=== PATIENT | female | born 1935 | race Two or more races ===

== ENCOUNTER 2018-02-11 13:44 | Inpatient (IN) | payer MEDICARE, OTHER ==
--- NOTE | 2018-02-11 15:06 | ED Physician Chart ---
ED Chief Complaint/HPI - Patient Information Date Seen:: 02/11/18 Time Seen:: 14:05 Chief Complaint:: change in mental status s/p fall History of Present Illness:: change in mental status prior head trauma according to patient (one year ago). patient did not allow me to examine her or undress her (even after sedation with ativan from the facility) before over 4 hours plus passed. patient tried to take a swing at me and didn't want to be disturbed. she also took a swing at Antione. she had pinpoint pupils and was breathing comfortably. Allergies:: Allergies Allergy/AdvReac Type Severity Reaction Status Date / Time No Known Allergies Allergy Verified 02/11/18 14:02 Vitals:: Vital Signs - 8 hr 02/11/18 14:03 Temp 99.5 F HR 71 RR 18 BP 154/52 O2 Sat % 98 Historian:: Family Member, Medical Records Review:: Nurse's Note Reviewed, Transfer documents Reviewed ED Review of Systems - Review of Systems General/Constitutional: No fever, No chills, No weakness, Other (fall; change in mental status.) Skin: Bruising Head: No headache, No light-headedness Eyes: No loss of vision, No pain, No diplopia ENT: No earache, No nasal drainage, No sore throat, No tinnitus Neck: No neck pain, No swelling, No thyromegaly, No stiffness, No mass noted Cardio Vascular: No chest pain, No palpitations, No PND, No orthopnea, No edema Pulmonary: No SOB, No cough, No sputum, No wheezing GI: No nausea, No vomiting, No diarrhea, No pain, No melena, No hematochezia, No constipation, No hematemesis G/U: No dysuria, No frequency, No hematuria Musculoskeletal: Bone or joint pain Endocrine: No polyuria, No polydipsia Psychiatric: Other (change in mental status; agitation) Hematopoietic: No bruising, No lymphadenopathy Allergic/Immuno: No urticaria, No angioedema Neurological: No syncope, No focal symptoms, No weakness, No paresthesia, No headache, No seizure, No dizziness, No confusion, No vertigo ED Past Medical History - Past Medical History Obtainable: No Past Medical History: CAD, Thyroid disorder, Other (aortic valve replacement; pacemaker; CAD) Surgical History: CABG, other (aortic valve replacement; pacemaker; 3 vessel CABG in 2009) Family Medical History - Family Member Mother History Unknown: Yes ED Physical Exam - Physical Examination Other Gen/Cons comments:: somnolent upon presentation with mouth open. Head: Atraumatic Other Head comments:: no bruising or swelling. Eyes: Lids, conjuctiva normal, EOMI Other Eyes comments:: pinpoint pupils Other Skin comments:: six inch long bruise that is widest at 2 inches (after patient finally allowed me to have her fully undressed). ENMT: External ears, nose nl, Nasal exam nl Other ENMT comments:: upper dentures removed by patient (edentulous on top) Neck: Nontender, Full ROM w/o pain, No JVD, No nuchal rigidity, No mass, No stridor Respiratory: Nl effort/Exclusion Other Respiratory comments:: faint rales at bases only. Cardio Vascular: RRR, No murmur, gallop, rubs, NL S1 S2 GI: No tenderness/rebounding/guarding, No organomegaly, No hernia, Normal BS's, Nondistended, No mass/bruits, No McBurney tenderness : No CVA tenderness Extremities: No tenderness or effusion, Full ROM, normal strength in all extremities, No edema, Normal digits & nails Other Neuro/Psych comments:: agitated. patient tried to hit me and to hit Antione. ED Assessment - Assessment General Assessment: EKG from 02/11/2018 at 2:18:19 p.m.: normal sinus rhythm, left bundle branch block. Q waves in III and AVF. Flipped t waves in AVL. Nonspecific ST T wave changes. Assessment/Comments:: 02/11/2018 CT of head: no hemorrhage; atrophy & diffuse white matter disease; atherosclerotic vascular disease; prior midline chronic appearing skull fracture extending to the midline frontal sinuses. Correlate with clinical history. Left shoulder: osteopenia (no fracture). CXR: cardiomegaly with CHF. patient did not allow me to examine her or undress her (even after sedation with ativan from the facility) before over 4 hours plus passed. patient tried to take a swing at me and didn't want to be disturbed. she also took a swing at Antione. she had pinpoint pupils and was breathing comfortably. when patient finally allowed me to examine her, I noticed a six inch long by 2 inch wide area of bruising behind her R scapula. (at 17:10) report had already been given to Dr. Correa. I then ordered a R shoulder and R scapular xray. On 2 of the 3 views of the R scapular xray, I noticed an area of bone cortex that was elevated and suspicious for a scapular tip fracture. Therefore, I ordered a CT scan and apprised Dr. Correa of this as well. the CT scan results are pending as of 7:17 p.m. I will give sign out to Dr. Feng to check the CT scan results and to call Dr. Correa if it is positive for a fracture. ED Septic Shock - . Is Septic Shock (SBP<90, OR Lactate>4 mmol\L) present?: No - <6hrs of presentation: Vital Signs: Vital Signs - 8 hr 02/11/18 14:03 Temp 99.5 F HR 71 RR 18 BP 154/52 O2 Sat % 98 ED Reassessment (Disposition) - Reassessment Reassessment Condition:: Improved - Diagnosis Diagnosis:: Fall Change in mental status Urinary tract infection Old frontal skull fracture with extension into sinuses Pulmonary edema without pretibial edema. Anemia Chronic renal insufficiency. Right parascapular bruising with abnormality seen on xrays. CT scan pending. Will give sign out to Dr. Feng to check this result and to call Dr. Correa if it is positive. - Patient Disposition Discharge/Transfer:: Acute Care w/in this hosp Accepting Physician:: Dr. Correa Time Called:: 16:38 Time Responded:: 16:38 Admitted to:: Telemetry Condition at Disposition:: Stable, Improved
[2018-02-11 15:21] LABS: % BASOPHILS 1.4 % (0.0-2.0); % EOSINOPHILS 2.9 % (0.0-5.0); % LYMPHOCYTES 17.2 % (20.0-50.0); % MONOCYTES 6.7 % (2.0-10.0); % NEUTROPHILS 71.8 % (40.0-80.0); BASOPHILE ABSOLUTE 0.2 Th/cumm (0-0.2); EOSINOPHILE ABSOLUTE 0.3 Th/cmm (0.1-0.4); HEMATOCRIT 34.4 % (41.0-60); HEMOGLOBIN 11.6 gm/dL (12-16); LYMPHOCYTE ABSOLUTE 1.9 Th/cmm (1.5-3.0); MEAN CORPUSCULAR HGB CONC 33.7 pg (28.0-36.0); MEAN PLATELET VOLUME 8.3 fl; MONOCYTE ABSOLUTE 0.7 Th/cmm (0.3-1.0); NEUTROPHILE ABSOLUTE 7.8 Th/cmm (1.8-8.0); PLATELET COUNT 218 Th/cmm (150-400); RED BLOOD COUNT 4.14 Mil/cmm (3.80-5.20); RED CELL DISTRIBUTION WIDTH 16.7 % (11.5-20.0); WHITE BLOOD COUNT 10.9 Th/cmm (4.8-10.8)
[2018-02-11 15:33] LABS: INR 1.04 (0.5-1.4); PROTHROMBIN TIME (TEST) 10.8 SECONDS (9.5-11.5)
[2018-02-11 15:35] LABS: ALB/GLOB RATIO 1.2 (1.0-1.8); ALBUMIN 3.9 gm/dL (3.7-5.3); ALKALINE PHOSPHATASE 74 U/L (34-104); BILIRUBIN,TOTAL 0.5 mg/dL (0.3-1.0); BUN - UREA NITROGEN 42 mg/dL (7-25); CALCIUM SERUM 10.1 mg/dL (8.6-10.3); CARBON DIOXIDE 22.9 mEq/L (21.0-31.0); CHLORIDE 107 mEq/L (98-107); CREATININE - SERUM 1.3 mg/dL (0.6-1.2); GLUCOSE 131 mg/dL (70-105); MAGNESIUM 2.3 mg/dL (1.9-2.7); PHOSPHOROUS 3.5 mg/dL (2.5-5.0); POTASSIUM SERUM 3.9 mEq/L (3.5-5.1); SGOT 18 U/L (13-39); SGPT/ALT 10 U/L (7-52); SODIUM SERUM 138 mEq/L (136-145); TOTAL PROTEIN,SERUM 7.2 gm/dL (6.0-8.3)
[2018-02-11 15:53] LABS: URINE BILIRUBIN NEGATIVE (NEGATIVE); URINE BLOOD MODERATE (NEGATIVE); URINE GLUCOSE (UA) NEGATIVE (NEGATIVE); URINE KETONE NEGATIVE (NEGATIVE); URINE LEUKOCYTE ESTERASE SMALL (NEGATIVE); URINE MICROSCOPIC INDICATED? YES; URINE NITRATE NEGATIVE (NEGATIVE); URINE PROTEIN NEGATIVE (NEGATIVE); URINE SOURCE CATH
[2018-02-11 15:55] LABS: URINE CLARITY HAZY (CLEAR); URINE COLOR YELLOW
[2018-02-11 16:00] LABS: URINE BACTERIA 3+ /hpf (NONE SEEN); URINE EPITHELIAL CELLS MODERATE /lpf (FEW); URINE FINE GRANULAR CAST 0-2 /lpf (NONE SEEN)
[2018-02-11 16:10] LABS: AMPHETAMINE URINE NEGATIVE (NEGATIVE); BARBITURATES URINE NEGATIVE (NEGATIVE); BENZODIAZEPINES QUAL URINE POSITIVE (NEGATIVE); CANNABINOID THC NEGATIVE (NEGATIVE); COCAINE METABOLITE QUAL URINE NEGATIVE (NEGATIVE); METHADONE URINE NEGATIVE (NEGATIVE); METHAMPHETAMINES QUAL URINE NEGATIVE (NEGATIVE); OPIATES (MORPHINE) QUAL. URINE NEGATIVE (NEGATIVE); PHENCYCLIDINE (PCP) URINE NEGATIVE (NEGATIVE); TRICYCLICS (TCA) QUAL. URINE NEGATIVE (NEGATIVE)
[2018-02-11] MEDS ORDERED: Levofloxacin 500mg/100mL 500 MG/100 ML BAG IV ONE ×2 (17:16→17:30)
[2018-02-11] MEDS ORDERED: Levofloxacin 500mg/100mL 500 MG/100 ML BAG IV SCH (17:30)
[2018-02-11 21:57] VITALS: BP 153/72
[2018-02-12 07:16] LABS: % BASOPHILS 0.9 % (0.0-2.0); % EOSINOPHILS 3.7 % (0.0-5.0); % LYMPHOCYTES 16.9 % (20.0-50.0); % MONOCYTES 9.4 % (2.0-10.0); % NEUTROPHILS 69.1 % (40.0-80.0); BASOPHILE ABSOLUTE 0.1 Th/cumm (0-0.2); EOSINOPHILE ABSOLUTE 0.3 Th/cmm (0.1-0.4); HEMOGLOBIN 11.4 gm/dL (12-16); LYMPHOCYTE ABSOLUTE 1.6 Th/cmm (1.5-3.0); MEAN CELL VOLUME 83.8 fl (81-100); MEAN CORPUSCULAR HEMOGLOBIN 28.1 pg (27.0-31.0); MEAN CORPUSCULAR HGB CONC 33.6 pg (28.0-36.0); MEAN PLATELET VOLUME 9.1 fl; MONOCYTE ABSOLUTE 0.9 Th/cmm (0.3-1.0); NEUTROPHILE ABSOLUTE 6.3 Th/cmm (1.8-8.0); PLATELET COUNT 200 Th/cmm (150-400); RED BLOOD COUNT 4.06 Mil/cmm (3.80-5.20); RED CELL DISTRIBUTION WIDTH 16.8 % (11.5-20.0); WHITE BLOOD COUNT 9.2 Th/cmm (4.8-10.8)
--- NOTE | 2018-02-12 07:19 | Diagnostic Imaging Report ---
Portable chest x-ray Time: 1436 History: Sepsis Allowing for portable technique the heart size is normal. No focal pulmonary parenchymal processes. No hilar or mediastinal abnormalities. Multiple metallic sutures are noted status post transsternal thoracotomy. The aortic arch calcified. Impression: No acute abnormalities.
[2018-02-12 07:30] LABS: ALB/GLOB RATIO 1.2 (1.0-1.8); ALBUMIN 3.6 gm/dL (3.7-5.3); ALKALINE PHOSPHATASE 66 U/L (34-104); ANION GAP 11.5 (7.0-16.0); BILIRUBIN,TOTAL 0.8 mg/dL (0.3-1.0); BUN - UREA NITROGEN 38 mg/dL (7-25); CALCIUM SERUM 9.8 mg/dL (8.6-10.3); CARBON DIOXIDE 24.3 mEq/L (21.0-31.0); CHLORIDE 106 mEq/L (98-107); CREATININE - SERUM 1.2 mg/dL (0.6-1.2); CREATININE KINASE 40 U/L (30-223); GLUCOSE 84 mg/dL (70-105); POTASSIUM SERUM 3.8 mEq/L (3.5-5.1); SGOT 18 U/L (13-39); SGPT/ALT 10 U/L (7-52); SODIUM SERUM 138 mEq/L (136-145); TOTAL PROTEIN,SERUM 6.6 gm/dL (6.0-8.3)
--- NOTE | 2018-02-12 07:32 | Diagnostic Imaging Report ---
Exam: CT examination of the right shoulder. HISTORY: Pain. Total DLP equals 715 CTDI equals 16.2 Findings: Multiple contiguous thin section of the right shoulder joint were obtained without the administration of contrast material. No prior studies available comparison. The study demonstrates no evidence of fracture dislocation. Suture anchors are noted humeral head most likely postoperative changes. Narrowing of joint space suggestive of degenerative osteophyte radius. The visualized muscle groups are intact. No soft tissue swelling is noted. The visualized scapula is normal. Incidentally noted post operative changes status post transsternal thoracotomy and left-sided pacemaker. IMPRESSION: Degenerative changes left shoulder joint.
--- NOTE | 2018-02-12 07:33 | Diagnostic Imaging Report ---
Exam: Right scapular HISTORY: Pain. Findings: Multiple views of right scapula reviewed the study demonstrates no evidence for acute fracture dislocation. The visualized right shoulder joint and acromioclavicular joints are intact. Metallic anchors overlying right humeral head appreciated. This represents postoperative changes status post ligamentous repair. IMPRESSION: Essentially unremarkable examination right scapula.
--- NOTE | 2018-02-12 07:34 | Diagnostic Imaging Report ---
Exam: Right shoulder joint. HISTORY: Pain Findings: Multiple views of right shoulder joint reviewed. The study demonstrates no evidence of fracture dislocation. The acromioclavicular joint is intact. Metallic anchors overlying the right humeral head most likely represent postoperative changes status post ligamentous repair. IMPRESSION: Essentially unremarkable examination right shoulder joint, mild degenerative narrowing of joint space.
--- NOTE | 2018-02-12 07:46 | Diagnostic Imaging Report ---
CT scan of the brain without intravenous contrast HISTORY: Effusion Total DLP equals 791 CTDI equals 40.9 Axial sections were obtained from the base of the skull to the vertex. There is prominence/enlargement of the ventricular system size. Associated enlargement of cerebral sulci and subarachnoid cisterns. Findings are consistent with changes of generalized cerebral atrophy. No acute parenchymal abnormalities. No acute cerebral hemorrhage. Hypodensity is seen within the supratentorial white matter regions without mass effect. The findings may be associated with chronic small vessel ischemic disease. No extra-axial masses or abnormal fluid collections. 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 Report The chronic appearing midline IMPRESSION: 1. No acute abnormalities 2. Cerebral atrophy 3. Supratentorial white matter changes that may reflect chronic small vessel ischemic disease
--- NOTE | 2018-02-12 07:47 | Diagnostic Imaging Report ---
Exam: Left shoulder joint HISTORY: Status post fall. Findings: Portable examination of the left shoulder joint at 1430 reviewed, no prior studies available for comparison. The study demonstrates no evidence for acute fracture or dislocation. The acromioclavicular joint is intact. Mild degenerative narrowing of the joint spaces noted. IMPRESSION: Essentially unremarkable examination of left shoulder joint.
[2018-02-12 08:12] LABS: DDIMER QUANT 2920 ng/mL (100-400)
[2018-02-12] MEDS ORDERED: Albuterol/Ipratropium Neb 3 ML AERS HHN PRN (08:41)
[2018-02-12] MEDS ORDERED: Albuterol/Ipratropium Neb 3 ML AERS HHN ONE (08:55)
[2018-02-12] MEDS ORDERED: Non-Formulary Item 1 EA (Levothyroxine Sodium [Levothyroxine Sodium] 150 MCG) PO SCH (09:00)
[2018-02-12] MEDS: Vitamin D3 2,000 IU SGL PO SCH (10:00)
[2018-02-12] MEDS: Multivitamin Tab PO SCH (10:00)
[2018-02-12] MEDS ORDERED: VTE Chemical Prophylaxis Screen/Admission MC PRN (11:56)
[2018-02-12] MEDS ORDERED: Probiotic Screen MC PRN (12:32)
--- NOTE | 2018-02-12 12:37 | Consultation ---
Consult Note - Consult Note Service Date: 02/12/18 Referring Physician: Nancy Correa Consult Note: PHYSICIAN Consultation Note: Date of Admission: 02/11/18 Purpose of Consultation: UTI. Chief Complaint: Patient LORENA LIANG was admitted to [facility] Telemetry with CHF, UTI & SINUS FX. History of Present Illness: 82-year-old female history of coronary artery disease, thyroid disorder, that developed placement, pacemaker placement, CABG, had a fall and nursing facility and developed change in mental status and right shoulder pain. On initial evaluation, her temperature was 99.5F and WBC count was 10,900. Urinalysis showed pyuria and bacteriuria. Levaquin was started. ID consult was called for antibiotic management. Past Medical History: coronary artery disease, thyroid disorder, that developed placement, pacemaker placement, CABG. Allergies Allergy/AdvReac Type Severity Reaction Status Date / Time No Known Allergies Allergy Verified 02/11/18 14:02 Vital Signs Temp 97.4 F 02/12/18 11:57 Pulse 72 02/12/18 11:57 Resp 18 02/12/18 11:57 BP 131/52 02/12/18 11:57 Pulse Ox 94 02/12/18 11:57 Intake & Output 02/11/18 02/12/18 02/12/18 18:59 06:59 18:59 Intake Total 200 240 Balance 200 240 Weight (lbs) 80.739 kg 71.305 kg 71.305 kg Intake: Intake, IV Amount 200 Levofloxacin 500mg/100mL 100 500 mg In 100 ml @ 100 mls/hr IV ONCE ONE Rx#: [id number] Levofloxacin 500mg/100mL 100 500 mg In 100 ml @ 100 mls/hr IV Q24HR [facility] Rx#: [id number] Oral 240 Other: # Voids 2 2 # Bowel Movements 0 Weight Source Estimated Bedscale Bedscale Laboratory Results - last 24 hr 02/11/18 02/11/18 02/11/18 14:14 15:11 15:11 WBC 10.9 H RBC 4.14 Hgb 11.6 L Hct 34.4 L MCV 83.0 MCH 28.0 MCHC Differential 33.7 RDW 16.7 Plt Count 218 MPV 8.3 Neutrophils % 71.8 Lymphocytes % 17.2 L Monocytes % 6.7 Eosinophils % 2.9 Basophils % 1.4 PT INR PTT (Actin FS) D-Dimer Sodium 138 Potassium 3.9 Chloride 107 Carbon Dioxide 22.9 Anion Gap 12.0 BUN 42 H Creatinine 1.3 H Est GFR ( Amer) TNP Est GFR (Non-Af Amer) TNP BUN/Creatinine Ratio 32.3 Glucose 131 H POC Glucose Whole Bld Lactic Acid Calcium 10.1 Phosphorus 3.5 Magnesium 2.3 Total Bilirubin 0.5 AST 18 ALT 10 Alkaline Phosphatase 74 Creatine Kinase Troponin I < 0.01 L B-Natriuretic Peptide Total Protein 7.2 Albumin 3.9 Globulin 3.3 Albumin/Globulin Ratio 1.2 TSH Urine Source Urine Color Urine Clarity Urine pH Ur Specific [place] Urine Protein Urine Glucose (UA) Urine Ketones Urine Blood Urine Nitrate Urine Bilirubin Urine Urobilinogen Ur Leukocyte Esterase Urine RBC Urine WBC Ur Epithelial Cells Urine Bacteria Fine Granular Casts Urine Opiates Screen Urine Methadone Screen Ur Barbiturates Screen Ur Tricyclics Screen Ur Phencyclidine Scrn Amphetamines Screen U Methamphetamines Scrn U Benzodiazepines Scrn U Cocaine Metab Screen U Cannabinoids Screen 02/11/18 02/11/18 02/11/18 15:11 15:11 15:11 WBC RBC Hgb Hct MCV MCH MCHC Differential RDW Plt Count MPV Neutrophils % Lymphocytes % Monocytes % Eosinophils % Basophils % PT 10.8 INR 1.04 PTT (Actin FS) 24.2 L D-Dimer Sodium Potassium Chloride Carbon Dioxide Anion Gap BUN Creatinine Est GFR ( Amer) Est GFR (Non-Af Amer) BUN/Creatinine Ratio Glucose POC Glucose Whole Bld Lactic Acid Calcium Phosphorus Magnesium Total Bilirubin AST ALT Alkaline Phosphatase Creatine Kinase Troponin I B-Natriuretic Peptide 1340.0 H Total Protein Albumin Globulin Albumin/Globulin Ratio TSH 1.01 Urine Source Urine Color Urine Clarity Urine pH Ur Specific [place] Urine Protein Urine Glucose (UA) Urine Ketones Urine Blood Urine Nitrate Urine Bilirubin Urine Urobilinogen Ur Leukocyte Esterase Urine RBC Urine WBC Ur Epithelial Cells Urine Bacteria Fine Granular Casts Urine Opiates Screen Urine Methadone Screen Ur Barbiturates Screen Ur Tricyclics Screen Ur Phencyclidine Scrn Amphetamines Screen U Methamphetamines Scrn U Benzodiazepines Scrn U Cocaine Metab Screen U Cannabinoids Screen 02/11/18 02/11/18 02/11/18 15:21 15:43 15:43 WBC RBC Hgb Hct MCV MCH MCHC Differential RDW Plt Count MPV Neutrophils % Lymphocytes % Monocytes % Eosinophils % Basophils % PT INR PTT (Actin FS) D-Dimer Sodium Potassium Chloride Carbon Dioxide Anion Gap BUN Creatinine Est GFR ( Amer) Est GFR (Non-Af Amer) BUN/Creatinine Ratio Glucose POC Glucose Whole Bld Lactic Acid 1.16 Calcium Phosphorus Magnesium Total Bilirubin AST ALT Alkaline Phosphatase Creatine Kinase Troponin I B-Natriuretic Peptide Total Protein Albumin Globulin Albumin/Globulin Ratio TSH Urine Source CATH Urine Color YELLOW Urine Clarity HAZY Urine pH 6.0 Ur Specific [place] 1.015 Urine Protein NEGATIVE Urine Glucose (UA) NEGATIVE Urine Ketones NEGATIVE Urine Blood MODERATE H Urine Nitrate NEGATIVE Urine Bilirubin NEGATIVE Urine Urobilinogen 1.0 Ur Leukocyte Esterase SMALL H Urine RBC 2-5 Urine WBC 10-25 H Ur Epithelial Cells MODERATE Urine Bacteria 3+ H Fine Granular Casts 0-2 H Urine Opiates Screen NEGATIVE Urine Methadone Screen NEGATIVE Ur Barbiturates Screen NEGATIVE Ur Tricyclics Screen NEGATIVE Ur Phencyclidine Scrn NEGATIVE Amphetamines Screen NEGATIVE U Methamphetamines Scrn NEGATIVE U Benzodiazepines Scrn POSITIVE H U Cocaine Metab Screen NEGATIVE U Cannabinoids Screen NEGATIVE 02/11/18 02/12/18 02/12/18 21:11 06:00 06:00 WBC 9.2 RBC 4.06 Hgb 11.4 L Hct 34.0 L MCV 83.8 MCH 28.1 MCHC Differential 33.6 RDW 16.8 Plt Count 200 MPV 9.1 Neutrophils % 69.1 Lymphocytes % 16.9 L Monocytes % 9.4 Eosinophils % 3.7 Basophils % 0.9 PT INR PTT (Actin FS) 25.9 L D-Dimer Sodium Potassium Chloride Carbon Dioxide Anion Gap BUN Creatinine Est GFR ( Amer) Est GFR (Non-Af Amer) BUN/Creatinine Ratio Glucose POC Glucose 95 Whole Bld Lactic Acid Calcium Phosphorus Magnesium Total Bilirubin AST ALT Alkaline Phosphatase Creatine Kinase Troponin I B-Natriuretic Peptide Total Protein Albumin Globulin Albumin/Globulin Ratio TSH Urine Source Urine Color Urine Clarity Urine pH Ur Specific [place] Urine Protein Urine Glucose (UA) Urine Ketones Urine Blood Urine Nitrate Urine Bilirubin Urine Urobilinogen Ur Leukocyte Esterase Urine RBC Urine WBC Ur Epithelial Cells Urine Bacteria Fine Granular Casts Urine Opiates Screen Urine Methadone Screen Ur Barbiturates Screen Ur Tricyclics Screen Ur Phencyclidine Scrn Amphetamines Screen U Methamphetamines Scrn U Benzodiazepines Scrn U Cocaine Metab Screen U Cannabinoids Screen 02/12/18 06:00 WBC RBC Hgb Hct MCV MCH MCHC Differential RDW Plt Count MPV Neutrophils % Lymphocytes % Monocytes % Eosinophils % Basophils % PT INR PTT (Actin FS) D-Dimer 2920 H Sodium 138 Potassium 3.8 Chloride 106 Carbon Dioxide 24.3 Anion Gap 11.5 BUN 38 H Creatinine 1.2 Est GFR ( Amer) TNP Est GFR (Non-Af Amer) TNP BUN/Creatinine Ratio 31.7 Glucose 84 POC Glucose Whole Bld Lactic Acid Calcium 9.8 Phosphorus Magnesium Total Bilirubin 0.8 AST 18 ALT 10 Alkaline Phosphatase 66 Creatine Kinase 40 Troponin I B-Natriuretic Peptide Total Protein 6.6 Albumin 3.6 L Globulin 3.0 Albumin/Globulin Ratio 1.2 TSH Urine Source Urine Color Urine Clarity Urine pH Ur Specific [place] Urine Protein Urine Glucose (UA) Urine Ketones Urine Blood Urine Nitrate Urine Bilirubin Urine Urobilinogen Ur Leukocyte Esterase Urine RBC Urine WBC Ur Epithelial Cells Urine Bacteria Fine Granular Casts Urine Opiates Screen Urine Methadone Screen Ur Barbiturates Screen Ur Tricyclics Screen Ur Phencyclidine Scrn Amphetamines Screen U Methamphetamines Scrn U Benzodiazepines Scrn U Cocaine Metab Screen U Cannabinoids Screen Home Medication Medication Instructions Recorded Type Acetaminophen [Tylenol 650mg Supp] 650 mg RC Q4HR PRN 02/11/18 History Alprazolam [Xanax] 0.5 mg PO BID 02/11/18 History Carvedilol [Coreg] 6.25 mg PO BID 02/11/18 History Clopidogrel Bisulfate [Plavix] 75 mg PO DAILY 02/11/18 History Furosemide [Lasix] 40 mg PO DAILY 02/11/18 History Ibuprofen 400 mg PO Q4H PRN 02/11/18 History Ipratropium/Albuterol Sulfate 3 ml IH Q4H PRN 02/11/18 History [Iprat-Albut 0.5-3(2.5) mg/3 ml] Levothyroxine Sodium 150 mcg PO DAILY 02/11/18 History Megestrol Acetate 5 ml PO DAILY 02/11/18 History Multivitamin [Multivitamins] 1 cap PO DAILY 02/11/18 History Nitrofurantoin Macrocrystal 100 mg PO BID 02/11/18 History [Macrodantin] Nitroglycerin 0.3 mg SL Q5MIN PRN 02/11/18 History QUEtiapine Fumarate [SEROquel] 50 mg PO BID 02/11/18 History Vitamin D 2,000 iu PO DAILY 02/11/18 History metroNIDAZOLE [Flagyl] 500 mg PO TID 02/11/18 History Current Medications Generic Name Dose Route Start Last Admin Trade Name Freq PRN Reason Stop Dose Admin Acetaminophen 650 mg 02/12/18 08:41 Tylenol 650mg Supp RC 04/13/18 08:40 Q4H PRN FEVER >100, OR MILD PAIN Albuterol/Ipratropium 3 ml 02/12/18 08:41 Duoneb Neb HHN 04/13/18 08:40 Q4HRT PRN Shortness of Breath Alprazolam 0.5 mg 02/12/18 09:00 02/12/18 10:00 Xanax PO 04/13/18 08:59 Not Given BID [facility] Protocol Carvedilol 6.25 mg 02/12/18 10:00 02/12/18 10:00 Coreg PO 04/13/18 09:59 Not Given BID [facility] Clopidogrel Bisulfate 75 mg 02/12/18 10:00 02/12/18 10:00 Plavix PO 04/13/18 09:59 Not Given DAILY [facility] Furosemide 40 mg 02/12/18 10:00 02/12/18 10:00 Lasix PO 04/13/18 09:59 Not Given DAILY [facility] Furosemide 40 mg 02/12/18 17:00 Lasix IVP 04/13/18 16:59 BID [facility] Heparin Sodium (Porcine) 5,000 units 02/12/18 21:00 Heparin SUBQ 04/13/18 20:59 Q12HR [facility] Levofloxacin 250 mg in 50 mls @ 50 mls/hr 02/12/18 18:00 Levaquin Pb IV 04/13/18 17:59 Q24H [facility] Ibuprofen 400 mg 02/12/18 08:41 Motrin PO 04/13/18 08:40 Q4H PRN PAIN Lactobacillus Rhamnosus 1 each 02/12/18 14:00 Culturelle 15b PO 04/13/18 13:59 DAILY [facility] Levothyroxine Sodium 0.1 mg/ 0.15 mg 02/12/18 10:00 02/12/18 10:00 Levothyroxine Sodium 0.05 mg PO 04/13/18 09:59 Not Given QDAC [facility] Lorazepam 1 mg 02/12/18 09:47 02/12/18 10:00 Ativan IVP 04/13/18 09:46 1 mg Q4H PRN Administration Agitation Protocol Megestrol Acetate 200 mg 02/12/18 10:00 02/12/18 10:00 Megace PO 04/13/18 09:59 Not Given DAILY [facility] Miscellaneous 1 02/12/18 11:56 Vte Chemical Prophylaxis Screen/ Admission 04/13/18 11:55 PRN PRN PROTOCOL Miscellaneous 1 02/12/18 12:32 Probiotic Screen 04/13/18 12:31 PRN PRN PROTOCOL Multivitamins/Vitamin C 1 tab 02/12/18 10:00 02/12/18 10:00 Theragran PO 04/13/18 09:59 Not Given DAILY [facility] Nitroglycerin 0.4 mg 02/12/18 08:41 Nitrostat SL Q5MIN PRN Chest Pain Quetiapine Fumarate 50 mg 02/12/18 09:00 Seroquel PO 04/13/18 08:59 BID [facility] Protocol Vitamin D 2,000 iu 02/12/18 10:00 02/12/18 10:00 Vitamin D3 PO 04/13/18 09:59 Not Given DAILY [facility] Review of Systems: A 12 point ROS was reviewed with the pertinent positive and negatives noted in the HPI. Social History Smoking Status Never smoker Drug Use No Alcohol Use No Family Medical History Noncontributory. Physical Exam: General: Comfortable sitting up in a chair. Denies any pain. Well-nourished Well-developed. HEENT: Head: Normocephalic, atraumatic. Oral cavity: Moist, pink tongue. Eyes : Pupil PERRLA. EOMI. No pallor neck tests. Neck: Supple, no JVD. No use of X his neck muscles. Cardio: S1 and S2 within normal limits regular rhythm. SYSTOLIC murmur present. Respiratory: Vesicular breath sound. No crackles no wheezing Abdominal: Soft, nontender nondistended bowel sounds present Genital/Urinary: Extremities: No cyanosis no clubbing or edema. Neurological: Alert, awake, communicates well. Speech is clear. Assessment: 1. UTI. 2. History of fall. 3. Dementia. 4. coronary artery disease.CABG 5. Thyroid disorder. 6. pacemaker placement. 7. CABG Plan: Change Levaquin to Rocephin. Thank you, Dr. Correa for involving me in taking care of this patient Signed, Oscar Colbert M.D.
--- NOTE | 2018-02-12 14:12 | History & Physical ---
ADMIT DATE: 02/11/2018 HISTORY OF PRESENT ILLNESS: The patient is well known to me from following her at hospice care. Apparently, the patient has been confused, disoriented, and acting out. The patient also had a history of fall. The patient was referred to the Emergency Room where they found that the patient has some facial injury as well as scapular injury and the patient was confused. The patient's workup showed UTI and sepsis. The patient was admitted. The patient had no fever, no chills. Has bruises, no ear ache, no neck pain, no vomiting, no complaints of bony pains. No syncope, history of syncope, history of coronary artery disease, history of thyroid disorder, history of aortic valve replacement in the past with status post pacemaker, coronary artery disease, coronary artery bypass surgery, pacemaker in 2011. PHYSICAL EXAMINATION: GENERAL: The patient is alert, patient is somewhat lethargic and confused. HEAD: Normal. ENT: Normal. NECK: Supple, nontender. LUNGS: Bilaterally clear. CARDIOVASCULAR SYSTEM: S1, S2 heard. ABDOMEN: Soft. CENTRAL NERVOUS SYSTEM: The patient is confused and the patient is a little agitated. LABORATORY DATA: EKG showed left bundle branch block. Left shoulder showed osteopenia, no fracture. Chest x-ray showed cardiomegaly, no CHF. She had a CAT scan of the head showed possible old fracture. DIAGNOSES: Altered mental status, encephalopathy, history of fall, facial injury, old bifrontal scalp fracture, possible pulmonary edema, renal insufficiency, anemia, right parascapular bruising. PLAN: The patient is being admitted. The patient is given IV antibiotics and we will give the medication to calm her down as well as we will have Dr. Medina see the patient. I will also have Dr. Eulogio Colbert see the patient and I will follow the patient. JOB# [id number]
[2018-02-12] MEDS: Lactobacillus Rhamnosus GG 15 Billion CFU CAP.SPRINK PO SCH (15:07)
--- NOTE | 2018-02-12 15:53 | General Progress Note ---
Subjective - Review of Systems Events since last encounter: in no distress Objective - Results Result Diagrams: 02/12/18 06:00 02/12/18 06:00 Recent Labs: Laboratory Last Values WBC 9.2 Th/cmm (4.8-10.8) 02/12/18 06:00 RBC 4.06 Mil/cmm (3.80-5.20) 02/12/18 06:00 Hgb 11.4 gm/dL (12-16) L 02/12/18 06:00 Hct 34.0 % (41.0-60) L 02/12/18 06:00 MCV 83.8 fl (81-100) 02/12/18 06:00 MCH 28.1 pg (27.0-31.0) 02/12/18 06:00 MCHC Differential 33.6 pg (28.0-36.0) 02/12/18 06:00 RDW 16.8 % (11.5-20.0) 02/12/18 06:00 Plt Count 200 Th/cmm (150-400) 02/12/18 06:00 MPV 9.1 fl 02/12/18 06:00 Neutrophils % 69.1 % (40.0-80.0) 02/12/18 06:00 Lymphocytes % 16.9 % (20.0-50.0) L 02/12/18 06:00 Monocytes % 9.4 % (2.0-10.0) 02/12/18 06:00 Eosinophils % 3.7 % (0.0-5.0) 02/12/18 06:00 Basophils % 0.9 % (0.0-2.0) 02/12/18 06:00 PT 10.8 SECONDS (9.5-11.5) 02/11/18 15:11 INR 1.04 (0.5-1.4) 02/11/18 15:11 PTT (Actin FS) 25.9 SECONDS (26.0-38.0) L 02/12/18 06:00 D-Dimer 2920 ng/mL (100-400) H 02/12/18 06:00 Sodium 138 mEq/L (136-145) 02/12/18 06:00 Potassium 3.8 mEq/L (3.5-5.1) 02/12/18 06:00 Chloride 106 mEq/L (98-107) 02/12/18 06:00 Carbon Dioxide 24.3 mEq/L (21.0-31.0) 02/12/18 06:00 Anion Gap 11.5 (7.0-16.0) 02/12/18 06:00 BUN 38 mg/dL (7-25) H 02/12/18 06:00 Creatinine 1.2 mg/dL (0.6-1.2) 02/12/18 06:00 Est GFR ( Amer) TNP 02/12/18 06:00 Est GFR (Non-Af Amer) TNP 02/12/18 06:00 BUN/Creatinine Ratio 31.7 02/12/18 06:00 Glucose 84 mg/dL (70-105) 02/12/18 06:00 POC Glucose 95 MG/DL (70 - 105) 02/11/18 21:11 Whole Bld Lactic Acid 1.16 mmol/L (0.60-1.99) 02/11/18 15:21 Calcium 9.8 mg/dL (8.6-10.3) 02/12/18 06:00 Phosphorus 3.5 mg/dL (2.5-5.0) 02/11/18 15:11 Magnesium 2.3 mg/dL (1.9-2.7) 02/11/18 15:11 Total Bilirubin 0.8 mg/dL (0.3-1.0) 02/12/18 06:00 AST 18 U/L (13-39) 02/12/18 06:00 ALT 10 U/L (7-52) 02/12/18 06:00 Alkaline Phosphatase 66 U/L (34-104) 02/12/18 06:00 Creatine Kinase 40 U/L (30-223) 02/12/18 06:00 Troponin I < 0.01 ng/mL (0.01-0.05) L 02/11/18 14:14 B-Natriuretic Peptide 1340.0 pg/mL (5.0-100.0) H 02/11/18 15:11 Total Protein 6.6 gm/dL (6.0-8.3) 02/12/18 06:00 Albumin 3.6 gm/dL (3.7-5.3) L 02/12/18 06:00 Globulin 3.0 gm/dL 02/12/18 06:00 Albumin/Globulin Ratio 1.2 (1.0-1.8) 02/12/18 06:00 TSH 1.01 uIU/ml (0.34-5.60) 02/11/18 15:11 Urine Source CATH 02/11/18 15:43 Urine Color YELLOW 02/11/18 15:43 Urine Clarity HAZY (CLEAR) 02/11/18 15:43 Urine pH 6.0 (4.6 - 8.0) 02/11/18 15:43 Ur Specific [place] 1.015 (1.005-1.030) 02/11/18 15:43 Urine Protein NEGATIVE mg/dL (NEGATIVE) 02/11/18 15:43 Urine Glucose (UA) NEGATIVE mg/dL (NEGATIVE) 02/11/18 15:43 Urine Ketones NEGATIVE mg/dL (NEGATIVE) 02/11/18 15:43 Urine Blood MODERATE (NEGATIVE) H 02/11/18 15:43 Urine Nitrate NEGATIVE (NEGATIVE) 02/11/18 15:43 Urine Bilirubin NEGATIVE (NEGATIVE) 02/11/18 15:43 Urine Urobilinogen 1.0 E.U./dL (0.2 - 1.0) 02/11/18 15:43 Ur Leukocyte Esterase SMALL (NEGATIVE) H 02/11/18 15:43 Urine RBC 2-5 /hpf (0-5) 02/11/18 15:43 Urine WBC 10-25 /hpf (0-5) H 02/11/18 15:43 Ur Epithelial Cells MODERATE /lpf (FEW) 02/11/18 15:43 Urine Bacteria 3+ /hpf (NONE SEEN) H 02/11/18 15:43 Fine Granular Casts 0-2 /lpf (NONE SEEN) H 02/11/18 15:43 Urine Opiates Screen NEGATIVE (NEGATIVE) 02/11/18 15:43 Urine Methadone Screen NEGATIVE (NEGATIVE) 02/11/18 15:43 Ur Barbiturates Screen NEGATIVE (NEGATIVE) 02/11/18 15:43 Ur Tricyclics Screen NEGATIVE (NEGATIVE) 02/11/18 15:43 Ur Phencyclidine Scrn NEGATIVE (NEGATIVE) 02/11/18 15:43 Amphetamines Screen NEGATIVE (NEGATIVE) 02/11/18 15:43 U Methamphetamines Scrn NEGATIVE (NEGATIVE) 02/11/18 15:43 U Benzodiazepines Scrn POSITIVE (NEGATIVE) H 02/11/18 15:43 U Cocaine Metab Screen NEGATIVE (NEGATIVE) 02/11/18 15:43 U Cannabinoids Screen NEGATIVE (NEGATIVE) 02/11/18 15:43 - Physical Exam Vitals and I&O: Vital Signs Temp 97.4 F 02/12/18 14:30 Pulse 72 02/12/18 14:30 Resp 18 02/12/18 14:30 BP 131/72 02/12/18 14:30 Pulse Ox 94 02/12/18 11:57 Intake & Output 02/11/18 02/12/18 02/12/18 18:59 06:59 18:59 Intake Total 200 240 Balance 200 240 Weight (lbs) 80.739 kg 71.305 kg 71.305 kg Intake: Intake, IV Amount 200 Levofloxacin 500mg/100mL 100 500 mg In 100 ml @ 100 mls/hr IV ONCE ONE Rx#: [id number] Levofloxacin 500mg/100mL 100 500 mg In 100 ml @ 100 mls/hr IV Q24HR [facility] Rx#: [id number] Oral 240 Other: # Voids 2 2 # Bowel Movements 0 Weight Source Estimated Bedscale Bedscale Active Medications: Current Medications Acetaminophen (Tylenol 650mg Supp) 650 mg RC Q4H PRN PRN Reason: FEVER >100, OR MILD PAIN Stop: 04/13/18 08:40 Albuterol/Ipratropium (Duoneb Neb) 3 ml HHN Q4HRT PRN PRN Reason: Shortness of Breath Stop: 04/13/18 08:40 Alprazolam (Xanax) 0.5 mg PO BID [facility]; Protocol Stop: 04/13/18 08:59 Last Admin: 02/12/18 10:00 Dose: Not Given Carvedilol (Coreg) 6.25 mg PO BID [facility] Stop: 04/13/18 09:59 Last Admin: 02/12/18 10:00 Dose: Not Given Clopidogrel Bisulfate (Plavix) 75 mg PO DAILY [facility] Stop: 04/13/18 09:59 Last Admin: 02/12/18 10:00 Dose: Not Given Furosemide (Lasix) 40 mg PO DAILY [facility] Stop: 04/13/18 09:59 Last Admin: 02/12/18 10:00 Dose: Not Given Furosemide (Lasix) 40 mg IVP BID [facility] Stop: 04/13/18 16:59 Heparin Sodium (Porcine) (Heparin) 5,000 units SUBQ Q12HR [facility] Stop: 04/13/18 20:59 Ceftriaxone Sodium 1 gm/ (Dextrose) 50 mls @ 100 mls/hr IV Q24H [facility] Stop: 04/13/18 13:59 Last Admin: 02/12/18 15:06 Dose: 100 mls/hr Ibuprofen (Motrin) 400 mg PO Q4H PRN PRN Reason: PAIN Stop: 04/13/18 08:40 Lactobacillus Rhamnosus (Culturelle 15b) 1 each PO DAILY [facility] Stop: 04/13/18 13:59 Last Admin: 02/12/18 15:07 Dose: Not Given Levothyroxine Sodium 0.1 mg/ (Levothyroxine Sodium 0.05 mg) 0.15 mg PO QDAC [facility] Stop: 04/13/18 09:59 Last Admin: 02/12/18 10:00 Dose: Not Given Lorazepam (Ativan) 1 mg IVP Q4H PRN; Protocol PRN Reason: Agitation Stop: 04/13/18 09:46 Last Admin: 02/12/18 15:07 Dose: 1 mg Megestrol Acetate (Megace) 200 mg PO DAILY [facility] Stop: 04/13/18 09:59 Last Admin: 02/12/18 10:00 Dose: Not Given Miscellaneous (Vte Chemical Prophylaxis Screen/ Admission) 1 ea PRN PRN PRN Reason: PROTOCOL Stop: 04/13/18 11:55 Miscellaneous (Probiotic Screen) 1 [facility] PRN PRN PRN Reason: PROTOCOL Stop: 04/13/18 12:31 Multivitamins/Vitamin C (Theragran) 1 tab PO DAILY [facility] Stop: 04/13/18 09:59 Last Admin: 02/12/18 10:00 Dose: Not Given Nitroglycerin (Nitrostat) 0.4 mg SL Q5MIN PRN PRN Reason: Chest Pain Quetiapine Fumarate (Seroquel) 50 mg PO BID [facility]; Protocol Stop: 04/13/18 08:59 Vitamin D (Vitamin D3) 2,000 iu PO DAILY [facility] Stop: 04/13/18 09:59 Last Admin: 02/12/18 10:00 Dose: Not Given Assessment/Plan - Problem List Patient Problems: All Active Problems FALL WITH LEFT SHOULDER PAIN/CONFUSION (Acute)
--- NOTE | 2018-02-12 15:59 | Consultation ---
DATE OF CONSULTATION: 02/12/2018 HISTORY OF PRESENT ILLNESS: This is an 82-year-old female patient who had a fall. Following this, the patient came with pain and tenderness in the left shoulder. During hospital stay, the patient also had elevated BNP level of 1340, hence cardiac consult is requested. PAST MEDICAL HISTORY: Left shoulder fracture; congestive heart failure; angina; coronary artery bypass, 3-vessel 2009; hypothyroid; AV replacement; sick sinus syndrome with pacemaker; iron deficiency anemia; and CKD, stage II. FAMILY HISTORY: Unremarkable. SOCIAL HISTORY: No history of smoking, alcohol abuse. PHYSICAL EXAMINATION: VITAL SIGNS: Blood pressure 130/80, pulse 80, and respirations 28. HEAD: Normocephalic. No lumps or bumps. EYES: Pupils equal, reactive to light. Fundi show AV nicking, sclerae white, conjunctivae pink. NECK: JVD 10 cm above sternal angle. Thyroid not palpable. Lymph nodes not palpable. CHEST: Shows increased AP diameter. No kyphosis, scoliosis. LUNGS: Bilateral rales. Decreased breath sounds at both bases. HEART: PMI sixth intercostal space with lateral to midclavicular line. S1, S2, S3, S4. ABDOMEN: Soft. Liver, spleen not palpable. Hepatojugular reflux positive. Bowel sounds active. NEUROLOGIC: Unremarkable. EXTREMITIES: Peripheral pulses 1+, mild pedal edema. CLINICAL IMPRESSION: Congestive heart failure. We will get echocardiogram for left ventricular function. Left shoulder fracture; angina; old skull fracture; hypothyroid; aortic valve replacement; sick sinus syndrome with pacemaker; coronary artery bypass, 3-vessel on 2009; iron deficiency anemia; and chronic kidney disease, stage II. PLAN: The patient to get an echocardiogram, Lasix, and monitor the patient on telemetry bed. JOB# [id number]
[2018-02-12] MEDS ORDERED: Levofloxacin 250mg/50mL 250 MG/50 ML BAG IV SCH (18:00)
--- NOTE | 2018-02-13 01:42 | Consultation ---
DATE OF CONSULTATION: 02/12/2018 IDENTIFYING INFORMATION: The patient is an 82-year-old female. CHIEF COMPLAINT: "They were bothering me." HISTORY OF PRESENT ILLNESS: The patient was admitted here according to the Emergency Room because of change of mental status. Apparently, she fell. She sustained a head trauma according to the patient a year ago. The patient did not allow the staff to examine her. She seemed to be improved. She was breathing comfortably. When I talked to her, she was in the room. She was uncooperative, unable to tell me the date, she believes this is January, she believes this is 2017. She does not know where she is. When asked about her age, she said she did not know. Unable to participate in a meaningful conversation or make safe plan for her self-care. The patient is with history of dementia. PAST PSYCHIATRIC HISTORY: The patient denies; however, she has been on Xanax 0.5 mg twice a day, Seroquel 50 mg twice a day. She has no idea she is on any psychotropic medication. MEDICAL HISTORY: Deferred to the medical doctor. The patient was admitted because of a fall on the head, sustained trauma. ALLERGIES: She has no known drug allergies. DIAGNOSTIC DATA: She had a CT scan of the head that showed no acute abnormalities, showed cerebral atrophy, supratentorial white matter changes, reflects chronic small vessel ischemic disease, so she may have vascular dementia. She had shoulder x-ray that was unremarkable and right scapular had an x-ray that was also unremarkable. CT scan of upper extremity with degenerative changes of the left shoulder joint. FAMILY AND SOCIAL HISTORY: The patient reports that her daughter lives with her. She is not sure of her age. She asked me not to bother her, not willing to participate in a meaningful conversation, unable to get much more information from her. MENTAL STATUS EXAMINATION: The patient is appropriately dressed, not well groomed. She was irritable. She was alert. She knew that this is January 2018, not sure of the exact day or the week, not sure why she is here and how she ended up here, unable to participate in meaningful conversation or make safe plan for her self-care. Long and short term memory is poor. She does not know why she is here. She does not know how long she has been here. She is unable to participate in meaningful conversation or tell me her age, where she is, why she is here. Denies any auditory or visual hallucination. She was somewhat paranoid. Insight and judgment is impaired. IMPRESSION: 1. Mood disorder, not otherwise specified. 2. Dementia. PLAN: I would recommend continuation of Seroquel. We will follow up with the patient and adjust medication as needed. Thank you very much for allowing me to participate in the care of this most interesting lady. JOB# [id number]
[2018-02-13 05:46] LABS: ANION GAP 14.7 (7.0-16.0); BUN - UREA NITROGEN 44 mg/dL (7-25); CALCIUM SERUM 10.4 mg/dL (8.6-10.3); CHLORIDE 105 mEq/L (98-107); CREATININE - SERUM 1.5 mg/dL (0.6-1.2); GLUCOSE 105 mg/dL (70-105); POTASSIUM SERUM 3.7 mEq/L (3.5-5.1); SODIUM SERUM 140 mEq/L (136-145)
[2018-02-13] MEDS: Vitamin D3 2,000 IU SGL PO SCH (09:10)
[2018-02-13] MEDS: Multivitamin Tab PO SCH (09:12)
[2018-02-13] MEDS: Lactobacillus Rhamnosus GG 15 Billion CFU CAP.SPRINK PO SCH (09:12)
--- NOTE | 2018-02-13 20:15 | Internal Medicine Prog Note ---
Internal Medicine Subjective - Subjective Service Date: 02/13/18 Patient seen and examined:: with staff Patient is:: awake, agitated, confused Per staff patient has:: tolerating meds Internal Medicine Objective - Results Result Diagrams: 02/12/18 06:00 02/13/18 04:40 Recent Labs: Laboratory Last Values WBC 9.2 Th/cmm (4.8-10.8) 02/12/18 06:00 RBC 4.06 Mil/cmm (3.80-5.20) 02/12/18 06:00 Hgb 11.4 gm/dL (12-16) L 02/12/18 06:00 Hct 34.0 % (41.0-60) L 02/12/18 06:00 MCV 83.8 fl (81-100) 02/12/18 06:00 MCH 28.1 pg (27.0-31.0) 02/12/18 06:00 MCHC Differential 33.6 pg (28.0-36.0) 02/12/18 06:00 RDW 16.8 % (11.5-20.0) 02/12/18 06:00 Plt Count 200 Th/cmm (150-400) 02/12/18 06:00 MPV 9.1 fl 02/12/18 06:00 Neutrophils % 69.1 % (40.0-80.0) 02/12/18 06:00 Lymphocytes % 16.9 % (20.0-50.0) L 02/12/18 06:00 Monocytes % 9.4 % (2.0-10.0) 02/12/18 06:00 Eosinophils % 3.7 % (0.0-5.0) 02/12/18 06:00 Basophils % 0.9 % (0.0-2.0) 02/12/18 06:00 PT 10.8 SECONDS (9.5-11.5) 02/11/18 15:11 INR 1.04 (0.5-1.4) 02/11/18 15:11 PTT (Actin FS) 25.9 SECONDS (26.0-38.0) L 02/12/18 06:00 D-Dimer 2920 ng/mL (100-400) H 02/12/18 06:00 Sodium 140 mEq/L (136-145) 02/13/18 04:40 Potassium 3.7 mEq/L (3.5-5.1) 02/13/18 04:40 Chloride 105 mEq/L (98-107) 02/13/18 04:40 Carbon Dioxide 24.0 mEq/L (21.0-31.0) 02/13/18 04:40 Anion Gap 14.7 (7.0-16.0) 02/13/18 04:40 BUN 44 mg/dL (7-25) H 02/13/18 04:40 Creatinine 1.5 mg/dL (0.6-1.2) H 02/13/18 04:40 Est GFR ( Amer) TNP 02/13/18 04:40 Est GFR (Non-Af Amer) TNP 02/13/18 04:40 BUN/Creatinine Ratio 29.3 02/13/18 04:40 Glucose 105 mg/dL (70-105) 02/13/18 04:40 POC Glucose 95 MG/DL (70 - 105) 02/11/18 21:11 Whole Bld Lactic Acid 1.16 mmol/L (0.60-1.99) 02/11/18 15:21 Calcium 10.4 mg/dL (8.6-10.3) H 02/13/18 04:40 Phosphorus 3.5 mg/dL (2.5-5.0) 02/11/18 15:11 Magnesium 2.3 mg/dL (1.9-2.7) 02/11/18 15:11 Total Bilirubin 0.8 mg/dL (0.3-1.0) 02/12/18 06:00 AST 18 U/L (13-39) 02/12/18 06:00 ALT 10 U/L (7-52) 02/12/18 06:00 Alkaline Phosphatase 66 U/L (34-104) 02/12/18 06:00 Creatine Kinase 40 U/L (30-223) 02/12/18 06:00 Troponin I < 0.01 ng/mL (0.01-0.05) L 02/11/18 14:14 B-Natriuretic Peptide 1100.0 pg/mL (5.0-100.0) H 02/13/18 12:00 Total Protein 6.6 gm/dL (6.0-8.3) 02/12/18 06:00 Albumin 3.6 gm/dL (3.7-5.3) L 02/12/18 06:00 Globulin 3.0 gm/dL 02/12/18 06:00 Albumin/Globulin Ratio 1.2 (1.0-1.8) 02/12/18 06:00 TSH 1.01 uIU/ml (0.34-5.60) 02/11/18 15:11 Urine Source CATH 02/11/18 15:43 Urine Color YELLOW 02/11/18 15:43 Urine Clarity HAZY (CLEAR) 02/11/18 15:43 Urine pH 6.0 (4.6 - 8.0) 02/11/18 15:43 Ur Specific [place] 1.015 (1.005-1.030) 02/11/18 15:43 Urine Protein NEGATIVE mg/dL (NEGATIVE) 02/11/18 15:43 Urine Glucose (UA) NEGATIVE mg/dL (NEGATIVE) 02/11/18 15:43 Urine Ketones NEGATIVE mg/dL (NEGATIVE) 02/11/18 15:43 Urine Blood MODERATE (NEGATIVE) H 02/11/18 15:43 Urine Nitrate NEGATIVE (NEGATIVE) 02/11/18 15:43 Urine Bilirubin NEGATIVE (NEGATIVE) 02/11/18 15:43 Urine Urobilinogen 1.0 E.U./dL (0.2 - 1.0) 02/11/18 15:43 Ur Leukocyte Esterase SMALL (NEGATIVE) H 02/11/18 15:43 Urine RBC 2-5 /hpf (0-5) 02/11/18 15:43 Urine WBC 10-25 /hpf (0-5) H 02/11/18 15:43 Ur Epithelial Cells MODERATE /lpf (FEW) 02/11/18 15:43 Urine Bacteria 3+ /hpf (NONE SEEN) H 02/11/18 15:43 Fine Granular Casts 0-2 /lpf (NONE SEEN) H 02/11/18 15:43 Urine Opiates Screen NEGATIVE (NEGATIVE) 02/11/18 15:43 Urine Methadone Screen NEGATIVE (NEGATIVE) 02/11/18 15:43 Ur Barbiturates Screen NEGATIVE (NEGATIVE) 02/11/18 15:43 Ur Tricyclics Screen NEGATIVE (NEGATIVE) 02/11/18 15:43 Ur Phencyclidine Scrn NEGATIVE (NEGATIVE) 02/11/18 15:43 Amphetamines Screen NEGATIVE (NEGATIVE) 02/11/18 15:43 U Methamphetamines Scrn NEGATIVE (NEGATIVE) 02/11/18 15:43 U Benzodiazepines Scrn POSITIVE (NEGATIVE) H 02/11/18 15:43 U Cocaine Metab Screen NEGATIVE (NEGATIVE) 02/11/18 15:43 U Cannabinoids Screen NEGATIVE (NEGATIVE) 02/11/18 15:43 - Physical Exam Vitals and I&O: Vital Signs Temp 97.3 F 02/13/18 18:00 Pulse 74 02/13/18 18:00 Resp 16 02/13/18 18:00 BP 138/70 02/13/18 18:00 Pulse Ox 96 02/13/18 16:00 Intake & Output 02/13/18 02/13/18 02/14/18 06:59 18:59 06:59 Intake Total 120 200 Balance 120 200 Weight (lbs) 153 lb 9.6 oz 147 lb Intake: Oral 120 200 Other: # Voids 2 4 # Bowel Movements 0 Weight Source Bedscale Bedscale Active Medications: Current Medications Acetaminophen (Tylenol 650mg Supp) 650 mg RC Q4H PRN PRN Reason: FEVER >100, OR MILD PAIN Stop: 04/13/18 08:40 Albuterol/Ipratropium (Duoneb Neb) 3 ml HHN Q4HRT PRN PRN Reason: Shortness of Breath Stop: 04/13/18 08:40 Alprazolam (Xanax) 0.5 mg PO BID [facility]; Protocol Stop: 04/13/18 08:59 Last Admin: 02/13/18 17:12 Dose: Not Given Carvedilol (Coreg) 6.25 mg PO BID [facility] Stop: 04/13/18 09:59 Last Admin: 02/13/18 17:12 Dose: Not Given Clopidogrel Bisulfate (Plavix) 75 mg PO DAILY [facility] Stop: 04/13/18 09:59 Last Admin: 02/13/18 09:10 Dose: Not Given Furosemide (Lasix) 40 mg PO DAILY [facility] Stop: 04/13/18 09:59 Last Admin: 02/13/18 09:11 Dose: 40 mg Furosemide (Lasix) 40 mg IVP BID [facility] Stop: 04/13/18 16:59 Last Admin: 02/13/18 17:07 Dose: 40 mg Heparin Sodium (Porcine) (Heparin) 5,000 units SUBQ Q12HR [facility] Stop: 04/13/18 20:59 Last Admin: 02/13/18 09:11 Dose: 5,000 units Ceftriaxone Sodium 1 gm/ (Dextrose) 50 mls @ 100 mls/hr IV Q24H [facility] Stop: 04/13/18 13:59 Last Admin: 02/13/18 13:39 Dose: 100 mls/hr Ibuprofen (Motrin) 400 mg PO Q4H PRN PRN Reason: PAIN Stop: 04/13/18 08:40 Lactobacillus Rhamnosus (Culturelle 15b) 1 each PO DAILY [facility] Stop: 04/13/18 13:59 Last Admin: 02/13/18 09:12 Dose: Not Given Levothyroxine Sodium 0.1 mg/ (Levothyroxine Sodium 0.05 mg) 0.15 mg PO QDAC [facility] Stop: 04/13/18 09:59 Last Admin: 02/13/18 06:45 Dose: Not Given Lorazepam (Ativan) 1 mg IVP Q4H PRN; Protocol PRN Reason: Agitation Stop: 04/13/18 09:46 Last Admin: 02/13/18 17:06 Dose: 1 mg Megestrol Acetate (Megace) 200 mg PO DAILY [facility] Stop: 04/13/18 09:59 Last Admin: 02/13/18 09:12 Dose: Not Given Miscellaneous (Vte Chemical Prophylaxis Screen/ Admission) 1 ea PRN PRN PRN Reason: PROTOCOL Stop: 04/13/18 11:55 Miscellaneous (Probiotic Screen) 1 ea PRN PRN PRN Reason: PROTOCOL Stop: 04/13/18 12:31 Multivitamins/Vitamin C (Theragran) 1 tab PO DAILY [facility] Stop: 04/13/18 09:59 Last Admin: 02/13/18 09:12 Dose: Not Given Nitroglycerin (Nitrostat) 0.4 mg SL Q5MIN PRN PRN Reason: Chest Pain Quetiapine Fumarate (Seroquel) 50 mg PO BID [facility]; Protocol Stop: 04/13/18 08:59 Last Admin: 02/13/18 17:12 Dose: Not Given Vitamin D (Vitamin D3) 2,000 iu PO DAILY [facility] Stop: 04/13/18 09:59 Last Admin: 02/13/18 09:10 Dose: Not Given General: weak, alert HEENT: NC/AT, PERRLA Neck: Supple Cardiovascular: RRR, without murmur Abdomen: soft Extremities: excoriation Neurological: alert, unable to follow command Internal Medicine Assmt/Plan - Assessment Assessment: altered mental status encephalopathy hx fall facial injury acute renal insufficiency anemia right parascapular bruising - Plan Plan: fall precautions psych follow up continue current plan of care
--- NOTE | 2018-02-13 21:19 | Progress Notes ---
DATE: 02/13/2018 Case was discussed with staff of the patient, reviewed records. The patient continues to be confused, demented. Continues to have poor insight, unable to make safe plan for self-care. She continues to have pain in her left shoulder. Continues to be confused. No side effects with the medication, no sedation, no nausea, and no extrapyramidal symptoms. She is on Seroquel 50 mg twice a day. Thank you very much for allowing me to participate in the care of this most interesting lady. JOB# [id number]
--- NOTE | 2018-02-13 23:46 | Infectious Disease Prog Note ---
Infectious Disease Subjective - Review of Systems Service Date: 02/13/18 Subjective: Doing well, no fever. Infectious Disease Objective - Results Result Diagrams: 02/12/18 06:00 02/13/18 04:40 Recent Labs: Laboratory Last Values WBC 9.2 Th/cmm (4.8-10.8) 02/12/18 06:00 RBC 4.06 Mil/cmm (3.80-5.20) 02/12/18 06:00 Hgb 11.4 gm/dL (12-16) L 02/12/18 06:00 Hct 34.0 % (41.0-60) L 02/12/18 06:00 MCV 83.8 fl (81-100) 02/12/18 06:00 MCH 28.1 pg (27.0-31.0) 02/12/18 06:00 MCHC Differential 33.6 pg (28.0-36.0) 02/12/18 06:00 RDW 16.8 % (11.5-20.0) 02/12/18 06:00 Plt Count 200 Th/cmm (150-400) 02/12/18 06:00 MPV 9.1 fl 02/12/18 06:00 Neutrophils % 69.1 % (40.0-80.0) 02/12/18 06:00 Lymphocytes % 16.9 % (20.0-50.0) L 02/12/18 06:00 Monocytes % 9.4 % (2.0-10.0) 02/12/18 06:00 Eosinophils % 3.7 % (0.0-5.0) 02/12/18 06:00 Basophils % 0.9 % (0.0-2.0) 02/12/18 06:00 PT 10.8 SECONDS (9.5-11.5) 02/11/18 15:11 INR 1.04 (0.5-1.4) 02/11/18 15:11 PTT (Actin FS) 25.9 SECONDS (26.0-38.0) L 02/12/18 06:00 D-Dimer 2920 ng/mL (100-400) H 02/12/18 06:00 Sodium 140 mEq/L (136-145) 02/13/18 04:40 Potassium 3.7 mEq/L (3.5-5.1) 02/13/18 04:40 Chloride 105 mEq/L (98-107) 02/13/18 04:40 Carbon Dioxide 24.0 mEq/L (21.0-31.0) 02/13/18 04:40 Anion Gap 14.7 (7.0-16.0) 02/13/18 04:40 BUN 44 mg/dL (7-25) H 02/13/18 04:40 Creatinine 1.5 mg/dL (0.6-1.2) H 02/13/18 04:40 Est GFR ( Amer) TNP 02/13/18 04:40 Est GFR (Non-Af Amer) TNP 02/13/18 04:40 BUN/Creatinine Ratio 29.3 02/13/18 04:40 Glucose 105 mg/dL (70-105) 02/13/18 04:40 POC Glucose 95 MG/DL (70 - 105) 02/11/18 21:11 Whole Bld Lactic Acid 1.16 mmol/L (0.60-1.99) 02/11/18 15:21 Calcium 10.4 mg/dL (8.6-10.3) H 02/13/18 04:40 Phosphorus 3.5 mg/dL (2.5-5.0) 02/11/18 15:11 Magnesium 2.3 mg/dL (1.9-2.7) 02/11/18 15:11 Total Bilirubin 0.8 mg/dL (0.3-1.0) 02/12/18 06:00 AST 18 U/L (13-39) 02/12/18 06:00 ALT 10 U/L (7-52) 02/12/18 06:00 Alkaline Phosphatase 66 U/L (34-104) 02/12/18 06:00 Creatine Kinase 40 U/L (30-223) 02/12/18 06:00 Troponin I < 0.01 ng/mL (0.01-0.05) L 02/11/18 14:14 B-Natriuretic Peptide 1100.0 pg/mL (5.0-100.0) H 02/13/18 12:00 Total Protein 6.6 gm/dL (6.0-8.3) 02/12/18 06:00 Albumin 3.6 gm/dL (3.7-5.3) L 02/12/18 06:00 Globulin 3.0 gm/dL 02/12/18 06:00 Albumin/Globulin Ratio 1.2 (1.0-1.8) 02/12/18 06:00 TSH 1.01 uIU/ml (0.34-5.60) 02/11/18 15:11 Urine Source CATH 02/11/18 15:43 Urine Color YELLOW 02/11/18 15:43 Urine Clarity HAZY (CLEAR) 02/11/18 15:43 Urine pH 6.0 (4.6 - 8.0) 02/11/18 15:43 Ur Specific [place] 1.015 (1.005-1.030) 02/11/18 15:43 Urine Protein NEGATIVE mg/dL (NEGATIVE) 02/11/18 15:43 Urine Glucose (UA) NEGATIVE mg/dL (NEGATIVE) 02/11/18 15:43 Urine Ketones NEGATIVE mg/dL (NEGATIVE) 02/11/18 15:43 Urine Blood MODERATE (NEGATIVE) H 02/11/18 15:43 Urine Nitrate NEGATIVE (NEGATIVE) 02/11/18 15:43 Urine Bilirubin NEGATIVE (NEGATIVE) 02/11/18 15:43 Urine Urobilinogen 1.0 E.U./dL (0.2 - 1.0) 02/11/18 15:43 Ur Leukocyte Esterase SMALL (NEGATIVE) H 02/11/18 15:43 Urine RBC 2-5 /hpf (0-5) 02/11/18 15:43 Urine WBC 10-25 /hpf (0-5) H 02/11/18 15:43 Ur Epithelial Cells MODERATE /lpf (FEW) 02/11/18 15:43 Urine Bacteria 3+ /hpf (NONE SEEN) H 02/11/18 15:43 Fine Granular Casts 0-2 /lpf (NONE SEEN) H 02/11/18 15:43 Urine Opiates Screen NEGATIVE (NEGATIVE) 02/11/18 15:43 Urine Methadone Screen NEGATIVE (NEGATIVE) 02/11/18 15:43 Ur Barbiturates Screen NEGATIVE (NEGATIVE) 02/11/18 15:43 Ur Tricyclics Screen NEGATIVE (NEGATIVE) 02/11/18 15:43 Ur Phencyclidine Scrn NEGATIVE (NEGATIVE) 02/11/18 15:43 Amphetamines Screen NEGATIVE (NEGATIVE) 02/11/18 15:43 U Methamphetamines Scrn NEGATIVE (NEGATIVE) 02/11/18 15:43 U Benzodiazepines Scrn POSITIVE (NEGATIVE) H 02/11/18 15:43 U Cocaine Metab Screen NEGATIVE (NEGATIVE) 02/11/18 15:43 U Cannabinoids Screen NEGATIVE (NEGATIVE) 02/11/18 15:43 - Physical Exam Vitals and I&O: Vital Signs Temp 98.1 F 02/13/18 20:00 Pulse 78 02/13/18 20:00 Resp 18 02/13/18 20:00 BP 140/69 02/13/18 20:00 Pulse Ox 99 02/13/18 20:00 Intake & Output 02/13/18 02/13/18 02/14/18 06:59 18:59 06:59 Intake Total 120 200 Balance 120 200 Weight (lbs) 69.672 kg 66.678 kg 66.678 kg Intake: Oral 120 200 Other: # Voids 2 4 # Bowel Movements 0 Weight Source Bedscale Bedscale Bedscale Active Medications: Current Medications Acetaminophen (Tylenol 650mg Supp) 650 mg RC Q4H PRN PRN Reason: FEVER >100, OR MILD PAIN Stop: 04/13/18 08:40 Albuterol/Ipratropium (Duoneb Neb) 3 ml HHN Q4HRT PRN PRN Reason: Shortness of Breath Stop: 04/13/18 08:40 Alprazolam (Xanax) 0.5 mg PO BID [facility]; Protocol Stop: 04/13/18 08:59 Last Admin: 02/13/18 17:12 Dose: Not Given Carvedilol (Coreg) 6.25 mg PO BID [facility] Stop: 04/13/18 09:59 Last Admin: 02/13/18 17:12 Dose: Not Given Clopidogrel Bisulfate (Plavix) 75 mg PO DAILY [facility] Stop: 04/13/18 09:59 Last Admin: 02/13/18 09:10 Dose: Not Given Furosemide (Lasix) 40 mg PO DAILY [facility] Stop: 04/13/18 09:59 Last Admin: 02/13/18 09:11 Dose: 40 mg Furosemide (Lasix) 40 mg IVP BID [facility] Stop: 04/13/18 16:59 Last Admin: 02/13/18 17:07 Dose: 40 mg Heparin Sodium (Porcine) (Heparin) 5,000 units SUBQ Q12HR [facility] Stop: 04/13/18 20:59 Last Admin: 02/13/18 20:42 Dose: 5,000 units Ceftriaxone Sodium 1 gm/ (Dextrose) 50 mls @ 100 mls/hr IV Q24H [facility] Stop: 04/13/18 13:59 Last Admin: 02/13/18 13:39 Dose: 100 mls/hr Ibuprofen (Motrin) 400 mg PO Q4H PRN PRN Reason: PAIN Stop: 04/13/18 08:40 Lactobacillus Rhamnosus (Culturelle 15b) 1 each PO DAILY [facility] Stop: 04/13/18 13:59 Last Admin: 02/13/18 09:12 Dose: Not Given Levothyroxine Sodium 0.1 mg/ (Levothyroxine Sodium 0.05 mg) 0.15 mg PO QDAC [facility] Stop: 04/13/18 09:59 Last Admin: 02/13/18 06:45 Dose: Not Given Lorazepam (Ativan) 1 mg IVP Q4H PRN; Protocol PRN Reason: Agitation Stop: 04/13/18 09:46 Last Admin: 02/13/18 17:06 Dose: 1 mg Megestrol Acetate (Megace) 200 mg PO DAILY [facility] Stop: 04/13/18 09:59 Last Admin: 02/13/18 09:12 Dose: Not Given Miscellaneous (Vte Chemical Prophylaxis Screen/ Admission) 1 ea PRN PRN PRN Reason: PROTOCOL Stop: 04/13/18 11:55 Miscellaneous (Probiotic Screen) 1 [facility] PRN PRN PRN Reason: PROTOCOL Stop: 04/13/18 12:31 Multivitamins/Vitamin C (Theragran) 1 tab PO DAILY [facility] Stop: 04/13/18 09:59 Last Admin: 02/13/18 09:12 Dose: Not Given Nitroglycerin (Nitrostat) 0.4 mg SL Q5MIN PRN PRN Reason: Chest Pain Quetiapine Fumarate (Seroquel) 50 mg PO BID [facility]; Protocol Stop: 04/13/18 08:59 Last Admin: 02/13/18 17:12 Dose: Not Given Vitamin D (Vitamin D3) 2,000 iu PO DAILY [facility] Stop: 04/13/18 09:59 Last Admin: 02/13/18 09:10 Dose: Not Given General: no acute distress, well developed, well nourished HEENT: atraumatic, normocephalic, PERRLA, EOMI Neck: supple, no thyromegaly Cardiovascular: S1S2, regular Lungs: clear to auscultation bilaterally, clear to percussion Abdomen: soft, no tender, no distended, no mass, no hepatomegaly Extremities: no cyanosis, no clubbing, no edema Neurological: awake, alert Infectious Disease Assmt/Plan - Problem List Patient Problems: All Active Problems FALL WITH LEFT SHOULDER PAIN/CONFUSION (Acute) - Assessment Assessment: 1. UTI. ESBL E coli 2. History of fall. 3. Dementia. 4. coronary artery disease.CABG 5. Thyroid disorder. 6. pacemaker placement. 7. CABG - Plan Plan: Change Rocephin to meropenem.
[2018-02-14] MEDS: Meropenem 500 MG in Sodium Chloride 0.9% 100 ML IV SCH ×2 (03:36→14:11)
[2018-02-14 07:05] LABS: ANION GAP 14.2 (7.0-16.0); BUN - UREA NITROGEN 45 mg/dL (7-25); CALCIUM SERUM 10.7 mg/dL (8.6-10.3); CARBON DIOXIDE 25.6 mEq/L (21.0-31.0); CHLORIDE 106 mEq/L (98-107); CREATININE - SERUM 1.4 mg/dL (0.6-1.2); GLUCOSE 124 mg/dL (70-105); POTASSIUM SERUM 3.8 mEq/L (3.5-5.1); SODIUM SERUM 142 mEq/L (136-145)
[2018-02-14] MEDS: Vitamin D3 2,000 IU SGL PO SCH (08:49)
[2018-02-14] MEDS: Lactobacillus Rhamnosus GG 15 Billion CFU CAP.SPRINK PO SCH (08:50)
[2018-02-14] MEDS: Multivitamin Tab PO SCH (08:50)
--- NOTE | 2018-02-14 12:33 | General Progress Note ---
Subjective - Review of Systems Events since last encounter: patient is awake confused Objective - Results Result Diagrams: 02/12/18 06:00 02/14/18 06:20 Recent Labs: Laboratory Last Values WBC 9.2 Th/cmm (4.8-10.8) 02/12/18 06:00 RBC 4.06 Mil/cmm (3.80-5.20) 02/12/18 06:00 Hgb 11.4 gm/dL (12-16) L 02/12/18 06:00 Hct 34.0 % (41.0-60) L 02/12/18 06:00 MCV 83.8 fl (81-100) 02/12/18 06:00 MCH 28.1 pg (27.0-31.0) 02/12/18 06:00 MCHC Differential 33.6 pg (28.0-36.0) 02/12/18 06:00 RDW 16.8 % (11.5-20.0) 02/12/18 06:00 Plt Count 200 Th/cmm (150-400) 02/12/18 06:00 MPV 9.1 fl 02/12/18 06:00 Neutrophils % 69.1 % (40.0-80.0) 02/12/18 06:00 Lymphocytes % 16.9 % (20.0-50.0) L 02/12/18 06:00 Monocytes % 9.4 % (2.0-10.0) 02/12/18 06:00 Eosinophils % 3.7 % (0.0-5.0) 02/12/18 06:00 Basophils % 0.9 % (0.0-2.0) 02/12/18 06:00 PT 10.8 SECONDS (9.5-11.5) 02/11/18 15:11 INR 1.04 (0.5-1.4) 02/11/18 15:11 PTT (Actin FS) 25.9 SECONDS (26.0-38.0) L 02/12/18 06:00 D-Dimer 2920 ng/mL (100-400) H 02/12/18 06:00 Sodium 142 mEq/L (136-145) 02/14/18 06:20 Potassium 3.8 mEq/L (3.5-5.1) 02/14/18 06:20 Chloride 106 mEq/L (98-107) 02/14/18 06:20 Carbon Dioxide 25.6 mEq/L (21.0-31.0) 02/14/18 06:20 Anion Gap 14.2 (7.0-16.0) 02/14/18 06:20 BUN 45 mg/dL (7-25) H 02/14/18 06:20 Creatinine 1.4 mg/dL (0.6-1.2) H 02/14/18 06:20 Est GFR ( Amer) TNP 02/14/18 06:20 Est GFR (Non-Af Amer) TNP 02/14/18 06:20 BUN/Creatinine Ratio 32.1 02/14/18 06:20 Glucose 124 mg/dL (70-105) H 02/14/18 06:20 POC Glucose 95 MG/DL (70 - 105) 02/11/18 21:11 Whole Bld Lactic Acid 1.16 mmol/L (0.60-1.99) 02/11/18 15:21 Calcium 10.7 mg/dL (8.6-10.3) H 02/14/18 06:20 Phosphorus 3.5 mg/dL (2.5-5.0) 02/11/18 15:11 Magnesium 2.3 mg/dL (1.9-2.7) 02/11/18 15:11 Total Bilirubin 0.8 mg/dL (0.3-1.0) 02/12/18 06:00 AST 18 U/L (13-39) 02/12/18 06:00 ALT 10 U/L (7-52) 02/12/18 06:00 Alkaline Phosphatase 66 U/L (34-104) 02/12/18 06:00 Creatine Kinase 40 U/L (30-223) 02/12/18 06:00 Troponin I < 0.01 ng/mL (0.01-0.05) L 02/11/18 14:14 B-Natriuretic Peptide 1100.0 pg/mL (5.0-100.0) H 02/13/18 12:00 Total Protein 6.6 gm/dL (6.0-8.3) 02/12/18 06:00 Albumin 3.6 gm/dL (3.7-5.3) L 02/12/18 06:00 Globulin 3.0 gm/dL 02/12/18 06:00 Albumin/Globulin Ratio 1.2 (1.0-1.8) 02/12/18 06:00 TSH 1.01 uIU/ml (0.34-5.60) 02/11/18 15:11 Urine Source CATH 02/11/18 15:43 Urine Color YELLOW 02/11/18 15:43 Urine Clarity HAZY (CLEAR) 02/11/18 15:43 Urine pH 6.0 (4.6 - 8.0) 02/11/18 15:43 Ur Specific [place] 1.015 (1.005-1.030) 02/11/18 15:43 Urine Protein NEGATIVE mg/dL (NEGATIVE) 02/11/18 15:43 Urine Glucose (UA) NEGATIVE mg/dL (NEGATIVE) 02/11/18 15:43 Urine Ketones NEGATIVE mg/dL (NEGATIVE) 02/11/18 15:43 Urine Blood MODERATE (NEGATIVE) H 02/11/18 15:43 Urine Nitrate NEGATIVE (NEGATIVE) 02/11/18 15:43 Urine Bilirubin NEGATIVE (NEGATIVE) 02/11/18 15:43 Urine Urobilinogen 1.0 E.U./dL (0.2 - 1.0) 02/11/18 15:43 Ur Leukocyte Esterase SMALL (NEGATIVE) H 02/11/18 15:43 Urine RBC 2-5 /hpf (0-5) 02/11/18 15:43 Urine WBC 10-25 /hpf (0-5) H 02/11/18 15:43 Ur Epithelial Cells MODERATE /lpf (FEW) 02/11/18 15:43 Urine Bacteria 3+ /hpf (NONE SEEN) H 02/11/18 15:43 Fine Granular Casts 0-2 /lpf (NONE SEEN) H 02/11/18 15:43 Urine Opiates Screen NEGATIVE (NEGATIVE) 02/11/18 15:43 Urine Methadone Screen NEGATIVE (NEGATIVE) 02/11/18 15:43 Ur Barbiturates Screen NEGATIVE (NEGATIVE) 02/11/18 15:43 Ur Tricyclics Screen NEGATIVE (NEGATIVE) 02/11/18 15:43 Ur Phencyclidine Scrn NEGATIVE (NEGATIVE) 02/11/18 15:43 Amphetamines Screen NEGATIVE (NEGATIVE) 02/11/18 15:43 U Methamphetamines Scrn NEGATIVE (NEGATIVE) 02/11/18 15:43 U Benzodiazepines Scrn POSITIVE (NEGATIVE) H 02/11/18 15:43 U Cocaine Metab Screen NEGATIVE (NEGATIVE) 02/11/18 15:43 U Cannabinoids Screen NEGATIVE (NEGATIVE) 02/11/18 15:43 - Physical Exam Vitals and I&O: Vital Signs Temp 97.7 F 02/14/18 11:53 Pulse 79 02/14/18 11:53 Resp 18 02/14/18 11:53 BP 155/70 02/14/18 11:53 Pulse Ox 96 02/14/18 11:53 Intake & Output 02/13/18 02/14/18 02/14/18 18:59 06:59 18:59 Intake Total 200 Balance 200 Weight (lbs) 66.678 kg 68.039 kg Intake: Oral 200 Other: # Voids 4 # Bowel Movements 0 Weight Source Bedscale Bedscale Active Medications: Current Medications Acetaminophen (Tylenol 650mg Supp) 650 mg RC Q4H PRN PRN Reason: FEVER >100, OR MILD PAIN Stop: 04/13/18 08:40 Albuterol/Ipratropium (Duoneb Neb) 3 ml HHN Q4HRT PRN PRN Reason: Shortness of Breath Stop: 04/13/18 08:40 Alprazolam (Xanax) 0.5 mg PO BID [facility]; Protocol Stop: 04/13/18 08:59 Last Admin: 02/14/18 08:49 Dose: Not Given Carvedilol (Coreg) 6.25 mg PO BID [facility] Stop: 04/13/18 09:59 Last Admin: 02/14/18 08:49 Dose: Not Given Clopidogrel Bisulfate (Plavix) 75 mg PO DAILY [facility] Stop: 04/13/18 09:59 Last Admin: 02/14/18 08:49 Dose: Not Given Furosemide (Lasix) 40 mg PO DAILY [facility] Stop: 04/13/18 09:59 Last Admin: 02/14/18 08:50 Dose: Not Given Furosemide (Lasix) 40 mg IVP BID [facility] Stop: 04/13/18 16:59 Last Admin: 02/14/18 10:33 Dose: 40 mg Heparin Sodium (Porcine) (Heparin) 5,000 units SUBQ Q12HR [facility] Stop: 04/13/18 20:59 Last Admin: 02/14/18 10:35 Dose: Not Given Ceftriaxone Sodium 1 gm/ (Dextrose) 50 mls @ 100 mls/hr IV Q24H [facility] Stop: 04/13/18 13:59 Last Admin: 02/13/18 13:39 Dose: 100 mls/hr Meropenem 500 mg/ Sodium (Chloride) 100 mls @ 100 mls/hr IV Q12H [facility] Stop: 04/15/18 02:29 Last Admin: 02/14/18 03:36 Dose: 100 mls/hr Ibuprofen (Motrin) 400 mg PO Q4H PRN PRN Reason: PAIN Stop: 04/13/18 08:40 Lactobacillus Rhamnosus (Culturelle 15b) 1 each PO DAILY [facility] Stop: 04/13/18 13:59 Last Admin: 02/14/18 08:50 Dose: Not Given Levothyroxine Sodium 0.1 mg/ (Levothyroxine Sodium 0.05 mg) 0.15 mg PO QDAC [facility] Stop: 04/13/18 09:59 Last Admin: 02/14/18 06:50 Dose: Not Given Lorazepam (Ativan) 1 mg IVP Q4H PRN; Protocol PRN Reason: Agitation Stop: 04/13/18 09:46 Last Admin: 02/14/18 10:34 Dose: 1 mg Lorazepam (Ativan) 0.5 mg IM Q6HR PRN; Protocol PRN Reason: Anxiety Stop: 04/15/18 08:51 Megestrol Acetate (Megace) 200 mg PO DAILY [facility] Stop: 04/13/18 09:59 Last Admin: 02/14/18 08:50 Dose: Not Given Miscellaneous (Vte Chemical Prophylaxis Screen/ Admission) 1 ea [facility] PRN PRN PRN Reason: PROTOCOL Stop: 04/13/18 11:55 Miscellaneous (Probiotic Screen) 1 ea [facility] PRN PRN PRN Reason: PROTOCOL Stop: 04/13/18 12:31 Multivitamins/Vitamin C (Theragran) 1 tab PO DAILY [facility] Stop: 04/13/18 09:59 Last Admin: 02/14/18 08:50 Dose: Not Given Nitroglycerin (Nitrostat) 0.4 mg SL Q5MIN PRN PRN Reason: Chest Pain Quetiapine Fumarate (Seroquel) 50 mg PO BID [facility]; Protocol Stop: 04/13/18 08:59 Last Admin: 02/14/18 08:50 Dose: Not Given Vitamin D (Vitamin D3) 2,000 iu PO DAILY [facility] Stop: 04/13/18 09:59 Last Admin: 02/14/18 08:49 Dose: Not Given General: No acute distress HEENT: Atraumatic, PERRLA Neck: Supple, JVD Cardiovascular: Regular rate, Normal S1 Lungs: Clear to auscultation Assessment/Plan - Problem List Patient Problems: All Active Problems Altered mental status (Acute) R41.82 Anemia (Acute) D64.9 Encephalopathy (Acute) G93.40 FALL WITH LEFT SHOULDER PAIN/CONFUSION (Acute) Facial injury (Acute) H/O fall (Acute) Z91.81 Renal insufficiency (Acute) rt parascapular bruising (Acute) - Plan Plan: as per order sheet
[2018-02-14] MEDS: Metolazone 5 MG TAB PO SCH (17:40)
--- NOTE | 2018-02-14 17:54 | Cardiology ---
02/13/2018 M-MODE ECHOCARDIOGRAM: Mitral valve, anterior leaflet of mitral valve shows normal excursion, EF velocity. Posterior leaflet of the mitral valve shows decreased excursion. Left ventricular posterior wall shows increased thickness, decreased excursion. Interventricular septum shows increased thickness, decreased excursion, ejection fraction 28%. Left atrium enlarged 4.3 cm. Aortic root shows normal dimension, normal excursion of aortic leaflets. CONCLUSION: Cardiomyopathy, ejection fraction 28%. Left atrium enlarged. 2D ECHO: Long axis view shows enlarged left ventricular cavity with global hypokinesis, ejection fraction 28%. The mitral valve shows decreased excursion. Left atrium enlarged. Aortic root shows normal dimension, normal excursion of aortic leaflets. Short axis view of mitral valve normal. Short axis view of aortic valve normal. Apical four chamber view shows enlarged left ventricular cavity with an ejection fraction of 28%. Left atrium enlarged. Aortic root shows normal dimension, normal excursion of aortic leaflets. Short axis view of mitral valve normal. Short axis view of aortic valve normal. Apical four chamber view shows enlarged left ventricular cavity with decreased ejection fraction 28%. Left atrial enlargement. Right ventricular cavity, right atrium normal, no pericardial effusion. CONCLUSION: Cardiomyopathy, ejection fraction 28%. Left atrial enlargement. Doppler study shows moderate mitral regurgitation, moderate tricuspid regurgitation, mild pulmonary regurgitation, right ventricular systolic pressure 45 mmHg. CONCLUSION: Cardiomyopathy, ejection fraction 28%, left atrial enlargement, moderate mitral regurgitation, moderate tricuspid regurgitation, mild pulmonary regurgitation, mild pulmonary hypertension, right ventricular systolic pressure 45 mmHg. [facility]# [id number]
--- NOTE | 2018-02-14 21:14 | Progress Notes ---
DATE: 02/14/2018 Case was discussed with staff of the patient, reviewed records. The patient continues to be unpredictable, impulsive, needing redirection. Continues to have poor insight. Today, she was talking to herself, easily agitated. She will be restarted on her medication, which is Seroquel and Ativan as needed to be given IM as in the past, never gave anything like this IV because it could affect her respiration. Thank you very much for allowing me to participate in the care of this most interesting lady. JOB# [id number]
--- NOTE | 2018-02-15 02:12 | Infectious Disease Prog Note ---
Infectious Disease Subjective - Review of Systems Service Date: 02/15/18 Subjective: Doing well, no fever. Infectious Disease Objective - Results Result Diagrams: 02/12/18 06:00 02/14/18 06:20 Recent Labs: Laboratory Last Values WBC 9.2 Th/cmm (4.8-10.8) 02/12/18 06:00 RBC 4.06 Mil/cmm (3.80-5.20) 02/12/18 06:00 Hgb 11.4 gm/dL (12-16) L 02/12/18 06:00 Hct 34.0 % (41.0-60) L 02/12/18 06:00 MCV 83.8 fl (81-100) 02/12/18 06:00 MCH 28.1 pg (27.0-31.0) 02/12/18 06:00 MCHC Differential 33.6 pg (28.0-36.0) 02/12/18 06:00 RDW 16.8 % (11.5-20.0) 02/12/18 06:00 Plt Count 200 Th/cmm (150-400) 02/12/18 06:00 MPV 9.1 fl 02/12/18 06:00 Neutrophils % 69.1 % (40.0-80.0) 02/12/18 06:00 Lymphocytes % 16.9 % (20.0-50.0) L 02/12/18 06:00 Monocytes % 9.4 % (2.0-10.0) 02/12/18 06:00 Eosinophils % 3.7 % (0.0-5.0) 02/12/18 06:00 Basophils % 0.9 % (0.0-2.0) 02/12/18 06:00 PT 10.8 SECONDS (9.5-11.5) 02/11/18 15:11 INR 1.04 (0.5-1.4) 02/11/18 15:11 PTT (Actin FS) 25.9 SECONDS (26.0-38.0) L 02/12/18 06:00 D-Dimer 2920 ng/mL (100-400) H 02/12/18 06:00 Sodium 142 mEq/L (136-145) 02/14/18 06:20 Potassium 3.8 mEq/L (3.5-5.1) 02/14/18 06:20 Chloride 106 mEq/L (98-107) 02/14/18 06:20 Carbon Dioxide 25.6 mEq/L (21.0-31.0) 02/14/18 06:20 Anion Gap 14.2 (7.0-16.0) 02/14/18 06:20 BUN 45 mg/dL (7-25) H 02/14/18 06:20 Creatinine 1.4 mg/dL (0.6-1.2) H 02/14/18 06:20 Est GFR ( Amer) TNP 02/14/18 06:20 Est GFR (Non-Af Amer) TNP 02/14/18 06:20 BUN/Creatinine Ratio 32.1 02/14/18 06:20 Glucose 124 mg/dL (70-105) H 02/14/18 06:20 POC Glucose 95 MG/DL (70 - 105) 02/11/18 21:11 Whole Bld Lactic Acid 1.16 mmol/L (0.60-1.99) 02/11/18 15:21 Calcium 10.7 mg/dL (8.6-10.3) H 02/14/18 06:20 Phosphorus 3.5 mg/dL (2.5-5.0) 02/11/18 15:11 Magnesium 2.3 mg/dL (1.9-2.7) 02/11/18 15:11 Total Bilirubin 0.8 mg/dL (0.3-1.0) 02/12/18 06:00 AST 18 U/L (13-39) 02/12/18 06:00 ALT 10 U/L (7-52) 02/12/18 06:00 Alkaline Phosphatase 66 U/L (34-104) 02/12/18 06:00 Creatine Kinase 40 U/L (30-223) 02/12/18 06:00 Troponin I < 0.01 ng/mL (0.01-0.05) L 02/11/18 14:14 B-Natriuretic Peptide 1100.0 pg/mL (5.0-100.0) H 02/13/18 12:00 Total Protein 6.6 gm/dL (6.0-8.3) 02/12/18 06:00 Albumin 3.6 gm/dL (3.7-5.3) L 02/12/18 06:00 Globulin 3.0 gm/dL 02/12/18 06:00 Albumin/Globulin Ratio 1.2 (1.0-1.8) 02/12/18 06:00 TSH 1.01 uIU/ml (0.34-5.60) 02/11/18 15:11 Urine Source CATH 02/11/18 15:43 Urine Color YELLOW 02/11/18 15:43 Urine Clarity HAZY (CLEAR) 02/11/18 15:43 Urine pH 6.0 (4.6 - 8.0) 02/11/18 15:43 Ur Specific [place] 1.015 (1.005-1.030) 02/11/18 15:43 Urine Protein NEGATIVE mg/dL (NEGATIVE) 02/11/18 15:43 Urine Glucose (UA) NEGATIVE mg/dL (NEGATIVE) 02/11/18 15:43 Urine Ketones NEGATIVE mg/dL (NEGATIVE) 02/11/18 15:43 Urine Blood MODERATE (NEGATIVE) H 02/11/18 15:43 Urine Nitrate NEGATIVE (NEGATIVE) 02/11/18 15:43 Urine Bilirubin NEGATIVE (NEGATIVE) 02/11/18 15:43 Urine Urobilinogen 1.0 E.U./dL (0.2 - 1.0) 02/11/18 15:43 Ur Leukocyte Esterase SMALL (NEGATIVE) H 02/11/18 15:43 Urine RBC 2-5 /hpf (0-5) 02/11/18 15:43 Urine WBC 10-25 /hpf (0-5) H 02/11/18 15:43 Ur Epithelial Cells MODERATE /lpf (FEW) 02/11/18 15:43 Urine Bacteria 3+ /hpf (NONE SEEN) H 02/11/18 15:43 Fine Granular Casts 0-2 /lpf (NONE SEEN) H 02/11/18 15:43 Urine Opiates Screen NEGATIVE (NEGATIVE) 02/11/18 15:43 Urine Methadone Screen NEGATIVE (NEGATIVE) 02/11/18 15:43 Ur Barbiturates Screen NEGATIVE (NEGATIVE) 02/11/18 15:43 Ur Tricyclics Screen NEGATIVE (NEGATIVE) 02/11/18 15:43 Ur Phencyclidine Scrn NEGATIVE (NEGATIVE) 02/11/18 15:43 Amphetamines Screen NEGATIVE (NEGATIVE) 02/11/18 15:43 U Methamphetamines Scrn NEGATIVE (NEGATIVE) 02/11/18 15:43 U Benzodiazepines Scrn POSITIVE (NEGATIVE) H 02/11/18 15:43 U Cocaine Metab Screen NEGATIVE (NEGATIVE) 02/11/18 15:43 U Cannabinoids Screen NEGATIVE (NEGATIVE) 02/11/18 15:43 - Physical Exam Vitals and I&O: Vital Signs Temp 98.6 F 02/14/18 18:00 Pulse 82 02/14/18 23:25 Resp 18 02/14/18 23:25 BP 154/76 02/14/18 18:00 Pulse Ox 97 02/14/18 23:25 Intake & Output 02/14/18 02/14/18 02/15/18 06:59 18:59 06:59 Intake Total 50 500 Balance 50 500 Weight (lbs) 68.039 kg 66.95 kg Intake: Intake, IV Amount 50 Meropenem 500 mg In 50 Sodium Chloride 0.9% 100 ml @ 100 mls/hr IV Q12H [facility] Rx#:[id number] Oral 500 Other: # Voids 2 # Bowel Movements 0 Weight Source Bedscale Bedscale Active Medications: Current Medications Acetaminophen (Tylenol 650mg Supp) 650 mg RC Q4H PRN PRN Reason: FEVER >100, OR MILD PAIN Stop: 04/13/18 08:40 Albuterol/Ipratropium (Duoneb Neb) 3 ml HHN Q4HRT PRN PRN Reason: Shortness of Breath Stop: 04/13/18 08:40 Alprazolam (Xanax) 0.5 mg PO BID [facility]; Protocol Stop: 04/13/18 08:59 Last Admin: 02/14/18 17:40 Dose: 0.5 mg Carvedilol (Coreg) 6.25 mg PO BID [facility] Stop: 04/13/18 09:59 Last Admin: 02/14/18 17:41 Dose: 6.25 mg Clopidogrel Bisulfate (Plavix) 75 mg PO DAILY [facility] Stop: 04/13/18 09:59 Last Admin: 02/14/18 08:49 Dose: Not Given Furosemide (Lasix) 40 mg PO DAILY [facility] Stop: 04/13/18 09:59 Last Admin: 02/14/18 08:50 Dose: Not Given Furosemide (Lasix) 40 mg IVP BID [facility] Stop: 04/13/18 16:59 Last Admin: 02/14/18 17:39 Dose: 40 mg Heparin Sodium (Porcine) (Heparin) 5,000 units SUBQ Q12HR [facility] Stop: 04/13/18 20:59 Last Admin: 02/14/18 22:21 Dose: Not Given Meropenem 500 mg/ Sodium (Chloride) 100 mls @ 100 mls/hr IV Q12H [facility] Stop: 04/15/18 02:29 Last Admin: 02/14/18 14:11 Dose: 100 mls/hr Ibuprofen (Motrin) 400 mg PO Q4H PRN PRN Reason: PAIN Stop: 04/13/18 08:40 Lactobacillus Rhamnosus (Culturelle 15b) 1 each PO DAILY [facility] Stop: 04/13/18 13:59 Last Admin: 02/14/18 08:50 Dose: Not Given Levothyroxine Sodium 0.1 mg/ (Levothyroxine Sodium 0.05 mg) 0.15 mg PO QDAC [facility] Stop: 04/13/18 09:59 Last Admin: 02/14/18 06:50 Dose: Not Given Lorazepam (Ativan) 1 mg IVP Q4H PRN; Protocol PRN Reason: Agitation Stop: 04/13/18 09:46 Last Admin: 02/15/18 00:41 Dose: 1 mg Lorazepam (Ativan) 0.5 mg IM Q6HR PRN; Protocol PRN Reason: Anxiety Stop: 04/15/18 08:51 Megestrol Acetate (Megace) 200 mg PO DAILY [facility] Stop: 04/13/18 09:59 Last Admin: 02/14/18 08:50 Dose: Not Given Metolazone (Zaroxolyn) 5 mg PO BID [facility] Stop: 04/15/18 16:59 Last Admin: 02/14/18 17:40 Dose: 5 mg Miscellaneous (Vte Chemical Prophylaxis Screen/ Admission) 1 ea [facility] PRN PRN PRN Reason: PROTOCOL Stop: 04/13/18 11:55 Miscellaneous (Probiotic Screen) 1 ea [facility] PRN PRN PRN Reason: PROTOCOL Stop: 04/13/18 12:31 Multivitamins/Vitamin C (Theragran) 1 tab PO DAILY [facility] Stop: 04/13/18 09:59 Last Admin: 02/14/18 08:50 Dose: Not Given Nitroglycerin (Nitrostat) 0.4 mg SL Q5MIN PRN PRN Reason: Chest Pain Quetiapine Fumarate (Seroquel) 50 mg PO BID [facility]; Protocol Stop: 04/13/18 08:59 Last Admin: 02/14/18 17:40 Dose: 50 mg Vitamin D (Vitamin D3) 2,000 iu PO DAILY [facility] Stop: 04/13/18 09:59 Last Admin: 02/14/18 08:49 Dose: Not Given General: no acute distress, well developed, well nourished HEENT: atraumatic, normocephalic, PERRLA, EOMI Neck: supple, no thyromegaly Cardiovascular: S1S2, regular Lungs: clear to auscultation bilaterally, clear to percussion Abdomen: soft, no tender Extremities: no cyanosis, no clubbing Neurological: awake, alert, oriented Skin: intact Infectious Disease Assmt/Plan - Problem List Patient Problems: All Active Problems Altered mental status (Acute) R41.82 Anemia (Acute) D64.9 Encephalopathy (Acute) G93.40 FALL WITH LEFT SHOULDER PAIN/CONFUSION (Acute) Facial injury (Acute) H/O fall (Acute) Z91.81 Renal insufficiency (Acute) rt parascapular bruising (Acute) - Assessment Assessment: 1. UTI. ESBL E coli 2. History of fall. 3. Dementia. 4. coronary artery disease.CABG 5. Thyroid disorder. 6. pacemaker placement. 7. CABG - Plan Plan: Continue meropenem.
[2018-02-15] MEDS: Meropenem 500 MG in Sodium Chloride 0.9% 100 ML IV SCH ×2 (03:28→18:15)
[2018-02-15 05:19] LABS: URINE SOURCE MIDSTREAM
[2018-02-15 05:25] LABS: URINE BILIRUBIN NEGATIVE (NEGATIVE); URINE BLOOD LARGE (NEGATIVE); URINE GLUCOSE (UA) NEGATIVE (NEGATIVE); URINE KETONE TRACE mg/dL (NEGATIVE); URINE LEUKOCYTE ESTERASE SMALL (NEGATIVE); URINE MICROSCOPIC INDICATED? YES; URINE NITRATE NEGATIVE (NEGATIVE); URINE PH 5.5 (4.6 - 8.0); URINE PROTEIN 100 mg/dL (NEGATIVE); URINE UROBILINOGEN 0.2 E.U./dL (0.2 - 1.0)
[2018-02-15 05:34] LABS: URINE CLARITY HAZY (CLEAR); URINE COLOR YELLOW
[2018-02-15 05:38] LABS: URINE BACTERIA FEW /hpf (NONE SEEN); URINE EPITHELIAL CELLS MODERATE /lpf (FEW)
[2018-02-15 06:22] LABS: BUN - UREA NITROGEN 47 mg/dL (7-25); CALCIUM SERUM 10.6 mg/dL (8.6-10.3); CARBON DIOXIDE 23.4 mEq/L (21.0-31.0); CHLORIDE 107 mEq/L (98-107); CREATININE - SERUM 1.3 mg/dL (0.6-1.2); GLUCOSE 124 mg/dL (70-105); POTASSIUM SERUM 3.4 mEq/L (3.5-5.1); SODIUM SERUM 144 mEq/L (136-145)
--- NOTE | 2018-02-15 10:13 | General Progress Note ---
Subjective - Review of Systems Events since last encounter: no fever awake alert Objective - Results Result Diagrams: 02/12/18 06:00 02/15/18 05:25 Recent Labs: Laboratory Last Values WBC 9.2 Th/cmm (4.8-10.8) 02/12/18 06:00 RBC 4.06 Mil/cmm (3.80-5.20) 02/12/18 06:00 Hgb 11.4 gm/dL (12-16) L 02/12/18 06:00 Hct 34.0 % (41.0-60) L 02/12/18 06:00 MCV 83.8 fl (81-100) 02/12/18 06:00 MCH 28.1 pg (27.0-31.0) 02/12/18 06:00 MCHC Differential 33.6 pg (28.0-36.0) 02/12/18 06:00 RDW 16.8 % (11.5-20.0) 02/12/18 06:00 Plt Count 200 Th/cmm (150-400) 02/12/18 06:00 MPV 9.1 fl 02/12/18 06:00 Neutrophils % 69.1 % (40.0-80.0) 02/12/18 06:00 Lymphocytes % 16.9 % (20.0-50.0) L 02/12/18 06:00 Monocytes % 9.4 % (2.0-10.0) 02/12/18 06:00 Eosinophils % 3.7 % (0.0-5.0) 02/12/18 06:00 Basophils % 0.9 % (0.0-2.0) 02/12/18 06:00 PT 10.8 SECONDS (9.5-11.5) 02/11/18 15:11 INR 1.04 (0.5-1.4) 02/11/18 15:11 PTT (Actin FS) 25.9 SECONDS (26.0-38.0) L 02/12/18 06:00 D-Dimer 2920 ng/mL (100-400) H 02/12/18 06:00 Sodium 144 mEq/L (136-145) 02/15/18 05:25 Potassium 3.4 mEq/L (3.5-5.1) L 02/15/18 05:25 Chloride 107 mEq/L (98-107) 02/15/18 05:25 Carbon Dioxide 23.4 mEq/L (21.0-31.0) 02/15/18 05:25 Anion Gap 17.0 (7.0-16.0) H 02/15/18 05:25 BUN 47 mg/dL (7-25) H 02/15/18 05:25 Creatinine 1.3 mg/dL (0.6-1.2) H 02/15/18 05:25 Est GFR ( Amer) TNP 02/15/18 05:25 Est GFR (Non-Af Amer) TNP 02/15/18 05:25 BUN/Creatinine Ratio 36.2 02/15/18 05:25 Glucose 124 mg/dL (70-105) H 02/15/18 05:25 POC Glucose 95 MG/DL (70 - 105) 02/11/18 21:11 Whole Bld Lactic Acid 1.16 mmol/L (0.60-1.99) 02/11/18 15:21 Calcium 10.6 mg/dL (8.6-10.3) H 02/15/18 05:25 Phosphorus 3.5 mg/dL (2.5-5.0) 02/11/18 15:11 Magnesium 2.3 mg/dL (1.9-2.7) 02/11/18 15:11 Total Bilirubin 0.8 mg/dL (0.3-1.0) 02/12/18 06:00 AST 18 U/L (13-39) 02/12/18 06:00 ALT 10 U/L (7-52) 02/12/18 06:00 Alkaline Phosphatase 66 U/L (34-104) 02/12/18 06:00 Creatine Kinase 40 U/L (30-223) 02/12/18 06:00 Troponin I < 0.01 ng/mL (0.01-0.05) L 02/11/18 14:14 B-Natriuretic Peptide 1640.0 pg/mL (5.0-100.0) H 02/15/18 05:35 Total Protein 6.6 gm/dL (6.0-8.3) 02/12/18 06:00 Albumin 3.6 gm/dL (3.7-5.3) L 02/12/18 06:00 Globulin 3.0 gm/dL 02/12/18 06:00 Albumin/Globulin Ratio 1.2 (1.0-1.8) 02/12/18 06:00 TSH 1.01 uIU/ml (0.34-5.60) 02/11/18 15:11 Urine Source MIDSTREAM 02/15/18 04:38 Urine Color YELLOW 02/15/18 04:38 Urine Clarity HAZY (CLEAR) 02/15/18 04:38 Urine pH 5.5 (4.6 - 8.0) 02/15/18 04:38 Ur Specific [place] 1.020 (1.005-1.030) 02/15/18 04:38 Urine Protein 100 mg/dL (NEGATIVE) H 02/15/18 04:38 Urine Glucose (UA) NEGATIVE mg/dL (NEGATIVE) 02/15/18 04:38 Urine Ketones TRACE mg/dL (NEGATIVE) 02/15/18 04:38 Urine Blood LARGE (NEGATIVE) H 02/15/18 04:38 Urine Nitrate NEGATIVE (NEGATIVE) 02/15/18 04:38 Urine Bilirubin NEGATIVE (NEGATIVE) 02/15/18 04:38 Urine Urobilinogen 0.2 E.U./dL (0.2 - 1.0) 02/15/18 04:38 Ur Leukocyte Esterase SMALL (NEGATIVE) H 02/15/18 04:38 Urine RBC 2-5 /hpf (0-5) 02/15/18 04:38 Urine WBC 6-10 /hpf (0-5) H 02/15/18 04:38 Ur Epithelial Cells MODERATE /lpf (FEW) 02/15/18 04:38 Urine Bacteria FEW /hpf (NONE SEEN) 02/15/18 04:38 Fine Granular Casts 0-2 /lpf (NONE SEEN) H 02/11/18 15:43 Urine Opiates Screen NEGATIVE (NEGATIVE) 02/11/18 15:43 Urine Methadone Screen NEGATIVE (NEGATIVE) 02/11/18 15:43 Ur Barbiturates Screen NEGATIVE (NEGATIVE) 02/11/18 15:43 Ur Tricyclics Screen NEGATIVE (NEGATIVE) 02/11/18 15:43 Ur Phencyclidine Scrn NEGATIVE (NEGATIVE) 02/11/18 15:43 Amphetamines Screen NEGATIVE (NEGATIVE) 02/11/18 15:43 U Methamphetamines Scrn NEGATIVE (NEGATIVE) 02/11/18 15:43 U Benzodiazepines Scrn POSITIVE (NEGATIVE) H 02/11/18 15:43 U Cocaine Metab Screen NEGATIVE (NEGATIVE) 02/11/18 15:43 U Cannabinoids Screen NEGATIVE (NEGATIVE) 02/11/18 15:43 - Physical Exam Vitals and I&O: Vital Signs Temp 97.4 F 02/15/18 08:00 Pulse 87 02/15/18 08:00 Resp 19 02/15/18 08:00 BP 124/94 02/15/18 08:00 Pulse Ox 99 02/15/18 08:00 Intake & Output 02/14/18 02/15/18 02/15/18 18:59 06:59 18:59 Intake Total 600 100 50 Balance 600 100 50 Weight (lbs) 66.95 kg 66.678 kg 66.451 kg Intake: Intake, IV Amount 100 Meropenem 500 mg In 100 Sodium Chloride 0.9% 100 ml @ 100 mls/hr IV Q12H [facility] Rx#:[id number] Oral 500 100 50 Other: # Voids 2 2 2 # Bowel Movements 0 0 0 Weight Source Bedscale Bedscale Bedscale Active Medications: Current Medications Acetaminophen (Tylenol 650mg Supp) 650 mg RC Q4H PRN PRN Reason: FEVER >100, OR MILD PAIN Stop: 04/13/18 08:40 Albuterol/Ipratropium (Duoneb Neb) 3 ml HHN Q4HRT PRN PRN Reason: Shortness of Breath Stop: 04/13/18 08:40 Alprazolam (Xanax) 0.5 mg PO BID [facility]; Protocol Stop: 04/13/18 08:59 Last Admin: 02/14/18 17:40 Dose: 0.5 mg Carvedilol (Coreg) 6.25 mg PO BID [facility] Stop: 04/13/18 09:59 Last Admin: 02/14/18 17:41 Dose: 6.25 mg Clopidogrel Bisulfate (Plavix) 75 mg PO DAILY [facility] Stop: 04/13/18 09:59 Last Admin: 02/14/18 08:49 Dose: Not Given Furosemide (Lasix) 40 mg PO DAILY [facility] Stop: 04/13/18 09:59 Last Admin: 02/14/18 08:50 Dose: Not Given Furosemide (Lasix) 40 mg IVP BID [facility] Stop: 04/13/18 16:59 Last Admin: 02/14/18 17:39 Dose: 40 mg Heparin Sodium (Porcine) (Heparin) 5,000 units SUBQ Q12HR [facility] Stop: 04/13/18 20:59 Last Admin: 02/14/18 22:21 Dose: Not Given Meropenem 500 mg/ Sodium (Chloride) 100 mls @ 100 mls/hr IV Q12H [facility] Stop: 04/15/18 02:29 Last Admin: 02/15/18 03:28 Dose: 100 mls/hr Ibuprofen (Motrin) 400 mg PO Q4H PRN PRN Reason: PAIN Stop: 04/13/18 08:40 Lactobacillus Rhamnosus (Culturelle 15b) 1 each PO DAILY [facility] Stop: 04/13/18 13:59 Last Admin: 02/14/18 08:50 Dose: Not Given Levothyroxine Sodium 0.1 mg/ (Levothyroxine Sodium 0.05 mg) 0.15 mg PO QDAC [facility] Stop: 04/13/18 09:59 Last Admin: 02/14/18 06:50 Dose: Not Given Lorazepam (Ativan) 1 mg IVP Q4H PRN; Protocol PRN Reason: Agitation Stop: 04/13/18 09:46 Last Admin: 02/15/18 00:41 Dose: 1 mg Lorazepam (Ativan) 0.5 mg IM Q6HR PRN; Protocol PRN Reason: Anxiety Stop: 04/15/18 08:51 Megestrol Acetate (Megace) 200 mg PO DAILY [facility] Stop: 04/13/18 09:59 Last Admin: 02/14/18 08:50 Dose: Not Given Metolazone (Zaroxolyn) 5 mg PO BID [facility] Stop: 04/15/18 16:59 Last Admin: 02/14/18 17:40 Dose: 5 mg Miscellaneous (Vte Chemical Prophylaxis Screen/ Admission) 1 ea PRN PRN PRN Reason: PROTOCOL Stop: 04/13/18 11:55 Miscellaneous (Probiotic Screen) 1 ea PRN PRN PRN Reason: PROTOCOL Stop: 04/13/18 12:31 Multivitamins/Vitamin C (Theragran) 1 tab PO DAILY [facility] Stop: 04/13/18 09:59 Last Admin: 02/14/18 08:50 Dose: Not Given Nitroglycerin (Nitrostat) 0.4 mg SL Q5MIN PRN PRN Reason: Chest Pain Quetiapine Fumarate (Seroquel) 50 mg PO BID [facility]; Protocol Stop: 04/13/18 08:59 Last Admin: 02/14/18 17:40 Dose: 50 mg Vitamin D (Vitamin D3) 2,000 iu PO DAILY [facility] Stop: 04/13/18 09:59 Last Admin: 02/14/18 08:49 Dose: Not Given General: No acute distress HEENT: Atraumatic, PERRLA Neck: Supple, JVD Cardiovascular: Regular rate, Normal S1 Lungs: Clear to auscultation Assessment/Plan - Problem List Patient Problems: All Active Problems Altered mental status (Acute) R41.82 Anemia (Acute) D64.9 Encephalopathy (Acute) G93.40 FALL WITH LEFT SHOULDER PAIN/CONFUSION (Acute) Facial injury (Acute) H/O fall (Acute) Z91.81 Renal insufficiency (Acute) rt parascapular bruising (Acute) - Plan Plan: as per order sheet
[2018-02-15] MEDS: Vitamin D3 2,000 IU SGL PO SCH (10:20)
[2018-02-15] MEDS: Lactobacillus Rhamnosus GG 15 Billion CFU CAP.SPRINK PO SCH (10:21)
[2018-02-15] MEDS: Multivitamin Tab PO SCH (10:22)
[2018-02-15] MEDS: Metolazone 5 MG TAB PO SCH ×2 (10:22→18:17)
--- NOTE | 2018-02-15 17:45 | Progress Notes ---
DATE: 02/15/2018 Case was discussed with staff of the patient, reviewed records. The patient has been at times refusing medication. The patient continues to be unpredictable, impulsive at times talking to herself, confused, unable to make safe plan for self-care. The patient apparently was ordered lorazepam IV and I discussed with the nurses that I do not think it is a good idea to give it IV ____ to give it IM as it may suppress her respiration. The patient ____ on Seroquel that was started, that she has been according to some staff at times refusing it and no side effects with the medication, no sedation, no nausea. The patient needs to follow up with the psychiatrist upon discharge. Thank you very much for allowing me to participate in the care of this most interesting lady. JOB# [id number]
[2018-02-16] MEDS: Meropenem 500 MG in Sodium Chloride 0.9% 100 ML IV SCH ×2 (02:30→13:30)
--- NOTE | 2018-02-16 08:19 | Infectious Disease Prog Note ---
Infectious Disease Subjective - Review of Systems Service Date: 02/16/18 Subjective: Doing well, no fever. Refusing IV antibiotics. Infectious Disease Objective - Results Result Diagrams: 02/12/18 06:00 02/15/18 05:25 Recent Labs: Laboratory Last Values WBC 9.2 Th/cmm (4.8-10.8) 02/12/18 06:00 RBC 4.06 Mil/cmm (3.80-5.20) 02/12/18 06:00 Hgb 11.4 gm/dL (12-16) L 02/12/18 06:00 Hct 34.0 % (41.0-60) L 02/12/18 06:00 MCV 83.8 fl (81-100) 02/12/18 06:00 MCH 28.1 pg (27.0-31.0) 02/12/18 06:00 MCHC Differential 33.6 pg (28.0-36.0) 02/12/18 06:00 RDW 16.8 % (11.5-20.0) 02/12/18 06:00 Plt Count 200 Th/cmm (150-400) 02/12/18 06:00 MPV 9.1 fl 02/12/18 06:00 Neutrophils % 69.1 % (40.0-80.0) 02/12/18 06:00 Lymphocytes % 16.9 % (20.0-50.0) L 02/12/18 06:00 Monocytes % 9.4 % (2.0-10.0) 02/12/18 06:00 Eosinophils % 3.7 % (0.0-5.0) 02/12/18 06:00 Basophils % 0.9 % (0.0-2.0) 02/12/18 06:00 PT 10.8 SECONDS (9.5-11.5) 02/11/18 15:11 INR 1.04 (0.5-1.4) 02/11/18 15:11 PTT (Actin FS) 25.9 SECONDS (26.0-38.0) L 02/12/18 06:00 D-Dimer 2920 ng/mL (100-400) H 02/12/18 06:00 Sodium 144 mEq/L (136-145) 02/15/18 05:25 Potassium 3.4 mEq/L (3.5-5.1) L 02/15/18 05:25 Chloride 107 mEq/L (98-107) 02/15/18 05:25 Carbon Dioxide 23.4 mEq/L (21.0-31.0) 02/15/18 05:25 Anion Gap 17.0 (7.0-16.0) H 02/15/18 05:25 BUN 47 mg/dL (7-25) H 02/15/18 05:25 Creatinine 1.3 mg/dL (0.6-1.2) H 02/15/18 05:25 Est GFR ( Amer) TNP 02/15/18 05:25 Est GFR (Non-Af Amer) TNP 02/15/18 05:25 BUN/Creatinine Ratio 36.2 02/15/18 05:25 Glucose 124 mg/dL (70-105) H 02/15/18 05:25 POC Glucose 95 MG/DL (70 - 105) 02/11/18 21:11 Whole Bld Lactic Acid 1.16 mmol/L (0.60-1.99) 02/11/18 15:21 Calcium 10.6 mg/dL (8.6-10.3) H 02/15/18 05:25 Phosphorus 3.5 mg/dL (2.5-5.0) 02/11/18 15:11 Magnesium 2.3 mg/dL (1.9-2.7) 02/11/18 15:11 Total Bilirubin 0.8 mg/dL (0.3-1.0) 02/12/18 06:00 AST 18 U/L (13-39) 02/12/18 06:00 ALT 10 U/L (7-52) 02/12/18 06:00 Alkaline Phosphatase 66 U/L (34-104) 02/12/18 06:00 Creatine Kinase 40 U/L (30-223) 02/12/18 06:00 Troponin I < 0.01 ng/mL (0.01-0.05) L 02/11/18 14:14 B-Natriuretic Peptide 1640.0 pg/mL (5.0-100.0) H 02/15/18 05:35 Total Protein 6.6 gm/dL (6.0-8.3) 02/12/18 06:00 Albumin 3.6 gm/dL (3.7-5.3) L 02/12/18 06:00 Globulin 3.0 gm/dL 02/12/18 06:00 Albumin/Globulin Ratio 1.2 (1.0-1.8) 02/12/18 06:00 TSH 1.01 uIU/ml (0.34-5.60) 02/11/18 15:11 Urine Source MIDSTREAM 02/15/18 04:38 Urine Color YELLOW 02/15/18 04:38 Urine Clarity HAZY (CLEAR) 02/15/18 04:38 Urine pH 5.5 (4.6 - 8.0) 02/15/18 04:38 Ur Specific [place] 1.020 (1.005-1.030) 02/15/18 04:38 Urine Protein 100 mg/dL (NEGATIVE) H 02/15/18 04:38 Urine Glucose (UA) NEGATIVE mg/dL (NEGATIVE) 02/15/18 04:38 Urine Ketones TRACE mg/dL (NEGATIVE) 02/15/18 04:38 Urine Blood LARGE (NEGATIVE) H 02/15/18 04:38 Urine Nitrate NEGATIVE (NEGATIVE) 02/15/18 04:38 Urine Bilirubin NEGATIVE (NEGATIVE) 02/15/18 04:38 Urine Urobilinogen 0.2 E.U./dL (0.2 - 1.0) 02/15/18 04:38 Ur Leukocyte Esterase SMALL (NEGATIVE) H 02/15/18 04:38 Urine RBC 2-5 /hpf (0-5) 02/15/18 04:38 Urine WBC 6-10 /hpf (0-5) H 02/15/18 04:38 Ur Epithelial Cells MODERATE /lpf (FEW) 02/15/18 04:38 Urine Bacteria FEW /hpf (NONE SEEN) 02/15/18 04:38 Fine Granular Casts 0-2 /lpf (NONE SEEN) H 02/11/18 15:43 Urine Opiates Screen NEGATIVE (NEGATIVE) 02/11/18 15:43 Urine Methadone Screen NEGATIVE (NEGATIVE) 02/11/18 15:43 Ur Barbiturates Screen NEGATIVE (NEGATIVE) 02/11/18 15:43 Ur Tricyclics Screen NEGATIVE (NEGATIVE) 02/11/18 15:43 Ur Phencyclidine Scrn NEGATIVE (NEGATIVE) 02/11/18 15:43 Amphetamines Screen NEGATIVE (NEGATIVE) 02/11/18 15:43 U Methamphetamines Scrn NEGATIVE (NEGATIVE) 02/11/18 15:43 U Benzodiazepines Scrn POSITIVE (NEGATIVE) H 02/11/18 15:43 U Cocaine Metab Screen NEGATIVE (NEGATIVE) 02/11/18 15:43 U Cannabinoids Screen NEGATIVE (NEGATIVE) 02/11/18 15:43 - Physical Exam Vitals and I&O: Vital Signs Temp 97.2 F 02/16/18 00:00 Pulse 77 02/16/18 07:20 Resp 18 02/16/18 07:20 BP 138/83 02/16/18 00:00 Pulse Ox 97 02/16/18 07:20 Intake & Output 02/15/18 02/16/18 02/16/18 18:59 06:59 18:59 Intake Total 50 50 Balance 50 50 Weight (lbs) 66.451 kg 65.317 kg Intake: Oral 50 50 Other: # Voids 2 2 # Bowel Movements 0 0 Weight Source Bedscale Bedscale Active Medications: Current Medications Acetaminophen (Tylenol 650mg Supp) 650 mg RC Q4H PRN PRN Reason: FEVER >100, OR MILD PAIN Stop: 04/13/18 08:40 Albuterol/Ipratropium (Duoneb Neb) 3 ml HHN Q4HRT PRN PRN Reason: Shortness of Breath Stop: 04/13/18 08:40 Alprazolam (Xanax) 0.5 mg PO BID [facility]; Protocol Stop: 04/13/18 08:59 Last Admin: 02/15/18 18:15 Dose: Not Given Carvedilol (Coreg) 6.25 mg PO BID [facility] Stop: 04/13/18 09:59 Last Admin: 02/15/18 18:15 Dose: Not Given Clopidogrel Bisulfate (Plavix) 75 mg PO DAILY [facility] Stop: 04/13/18 09:59 Last Admin: 02/15/18 10:20 Dose: Not Given Furosemide (Lasix) 40 mg IVP BID [facility] Stop: 04/13/18 16:59 Last Admin: 02/15/18 18:16 Dose: Not Given Heparin Sodium (Porcine) (Heparin) 5,000 units SUBQ Q12HR [facility] Stop: 04/13/18 20:59 Last Admin: 02/15/18 21:00 Dose: Not Given Meropenem 500 mg/ Sodium (Chloride) 100 mls @ 100 mls/hr IV Q12H [facility] Stop: 04/15/18 02:29 Last Admin: 02/16/18 02:30 Dose: Not Given Ibuprofen (Motrin) 400 mg PO Q4H PRN PRN Reason: PAIN Stop: 04/13/18 08:40 Lactobacillus Rhamnosus (Culturelle 15b) 1 each PO DAILY [facility] Stop: 04/13/18 13:59 Last Admin: 02/15/18 10:21 Dose: Not Given Levothyroxine Sodium 0.1 mg/ (Levothyroxine Sodium 0.05 mg) 0.15 mg PO QDAC [facility] Stop: 04/13/18 09:59 Last Admin: 02/16/18 06:41 Dose: Not Given Lorazepam (Ativan) 0.5 mg IM Q6HR PRN; Protocol PRN Reason: Anxiety Stop: 04/15/18 08:51 Last Admin: 02/16/18 04:30 Dose: 0.5 mg Megestrol Acetate (Megace) 200 mg PO DAILY [facility] Stop: 04/13/18 09:59 Last Admin: 02/15/18 10:22 Dose: Not Given Metolazone (Zaroxolyn) 5 mg PO BID [facility] Stop: 04/15/18 16:59 Last Admin: 02/15/18 18:17 Dose: Not Given Miscellaneous (Vte Chemical Prophylaxis Screen/ Admission) 1 ea MC PRN PRN PRN Reason: PROTOCOL Stop: 04/13/18 11:55 Miscellaneous (Probiotic Screen) 1 ea MC PRN PRN PRN Reason: PROTOCOL Stop: 04/13/18 12:31 Miscellaneous (Clinical Monitoring) 1 ea MC DAILY PRN PRN Reason: RENAL Stop: 04/16/18 15:38 Multivitamins/Vitamin C (Theragran) 1 tab PO DAILY [facility] Stop: 04/13/18 09:59 Last Admin: 02/15/18 10:22 Dose: Not Given Nitroglycerin (Nitrostat) 0.4 mg SL Q5MIN PRN PRN Reason: Chest Pain Quetiapine Fumarate (Seroquel) 50 mg PO BID [facility]; Protocol Stop: 04/13/18 08:59 Last Admin: 02/15/18 18:16 Dose: Not Given Vitamin D (Vitamin D3) 2,000 iu PO DAILY [facility] Stop: 04/13/18 09:59 Last Admin: 02/15/18 10:20 Dose: Not Given General: no acute distress, well developed, well nourished HEENT: atraumatic, normocephalic, PERRLA, EOMI Neck: supple, no thyromegaly Cardiovascular: S1S2, regular Lungs: clear to auscultation bilaterally, clear to percussion Abdomen: soft, no tender, no distended, no mass Extremities: no cyanosis, no clubbing, no edema Neurological: other (Confused) Skin: intact Infectious Disease Assmt/Plan - Problem List Patient Problems: All Active Problems Altered mental status (Acute) R41.82 Anemia (Acute) D64.9 Encephalopathy (Acute) G93.40 FALL WITH LEFT SHOULDER PAIN/CONFUSION (Acute) Facial injury (Acute) H/O fall (Acute) Z91.81 Renal insufficiency (Acute) rt parascapular bruising (Acute) - Assessment Assessment: 1. UTI. ESBL E coli 2. History of fall. 3. Dementia. 4. coronary artery disease.CABG 5. Thyroid disorder. 6. pacemaker placement. 7. CABG - Plan Plan: Change meropenem to Doxyxycline. Nutritional Asmnt/Malnutr-PDOC - Dietary Evaluation Malnutrition Findings (Please click <Entered> for more info): Nutritional Asmnt/Malnutrition Start: 02/15/18 18: 13 Text: Status: Complete Freq: Protocol: Document 02/15/18 18:16 LCHENG (Rec: 02/15/18 18:28 [email or web address]) Nutritional Asmnt/Malnutrition Patient General Information Nutritional Screening Moderate Risk Diagnosis CHF, UTI,sinus Fx Pertinent Medical Hx/Surgical Hx CAD, thyroid disorder, aortic valve replacement, pacemaker, CAD, CABG Subjective Information Pt seen resting in bed at time of visit. Per LINE DRIVER, pt was not eating much, refusing to eat. Per nurse, pt is very confused, on restrains. Per EMR, PO intake 0-25%, refuse most of meals. ordered renal US per nurse note d/t blood in urine. Current Diet Order/ [facility], cardiac Pertinent Medications lasix, culturelle, levothyroxine, megace, theragran, seroquel, vit D3 Pertinent Labs 02/15 K 3.4, BUN 47, Cr 1.3, glucose 124 Nutritional Hx/Data Height 1.6 m Height (Calculated Centimeters) 160.0 Current Weight (lbs) 66.224 kg Weight (Calculated Kilograms) 66.2 Weight (Calculated Grams) 47033.5 [place] Body Weight 115 Body Mass Index (BMI) 25.8 Weight Status Overweight GI Symptoms GI Symptoms None Last BM none Difficult in: None Skin Integrity/Comment: intact Current %PO Negligible < 25% Estimated Nutritional Goals BEE in Kcals: Using Current wt Calories/Kcals/Kg 23-27 Kcals Calculated 7005-8155 Protein: Using Current wt Protein g/k.8 Protein Calculated 52 Nutritional Problem 2. Problem Problem inadequate food intake Etiology confusion and poor cognition Signs/Symptoms: PO intake 0-25% 1. Problem Problem altered nutrition related labs Etiology electrolytes imbalance, possible renal function Signs/Symptoms: K 3.4, BUN 47, Cr 1.3 Malnutrition Alert Is there a minimum of two criteria No selected? Query Text:Check all the applicable criteria. A minimum of two criteria are recommended for diagnosis of either severe or non-severe malnutrition. Malnutrition Related to Morbid Obesity Malnutrition related to morbid obesity No Intervention/Recommendation Comments 1. Continue with current diet as ordered. Encourage oral intake and assist with meals as needed. 2. Monitor PO intake, wt, labs and skin integrity 3. F/U as moderate risk in 3-5 days, 02/18-02/20, PO check Expected Outcomes/Goals Expected Outcomes/Goals 1. PO intake to meet at least 75% of nutritional needs. 2. Wt stability, skin to remain intact, labs to approach WNL.
[2018-02-16] MEDS: Metolazone 5 MG TAB PO SCH ×3 (09:07→16:27)
[2018-02-16] MEDS: Vitamin D3 2,000 IU SGL PO SCH (09:13)
[2018-02-16] MEDS: Lactobacillus Rhamnosus GG 15 Billion CFU CAP.SPRINK PO SCH (09:14)
[2018-02-16] MEDS: Multivitamin Tab PO SCH (09:14)
[2018-02-16] MEDS ORDERED: Potassium Chloride 20 mEq ER Tab PO ONE (15:25)
--- NOTE | 2018-02-16 21:23 | Progress Notes ---
DATE: 02/16/2018 Case was discussed with staff of the patient. The patient continues to be talking to himself. Continues to be irritable, confused, unable to make safe plan for self-care or participate in meaningful conversation team according to Dr. Colbert that she is refusing IV antibiotic, but she has no fever, doing well, described as doing well. I discussed with staff yesterday. The patient may need to go to [facility] until she is stable because of her psychotic symptoms, she probably also could be delirious from the infection, though she does not have any fever now and she is on oral antibiotic, she is still on Seroquel 50 mg twice a day. Thank you very much for allowing me to participate in the care of this most interesting lady. JOB# [id number]
[2018-02-17] MEDS: Meropenem 500 MG in Sodium Chloride 0.9% 100 ML IV SCH ×2 (03:17→17:13)
[2018-02-17] MEDS: Lactobacillus Rhamnosus GG 15 Billion CFU CAP.SPRINK PO SCH (09:48)
[2018-02-17] MEDS: Metolazone 5 MG TAB PO SCH ×2 (09:48→16:56)
[2018-02-17] MEDS: Multivitamin Tab PO SCH (09:50)
[2018-02-17] MEDS: Vitamin D3 2,000 IU SGL PO SCH (09:50)
[2018-02-17 14:04] LABS: ANION GAP 18.3 (7.0-16.0); BUN - UREA NITROGEN 77 mg/dL (7-25); CALCIUM SERUM 10.6 mg/dL (8.6-10.3); CARBON DIOXIDE 19.4 mEq/L (21.0-31.0); CHLORIDE 112 mEq/L (98-107); GLUCOSE 118 mg/dL (70-105); POTASSIUM SERUM 3.7 mEq/L (3.5-5.1); SODIUM SERUM 146 mEq/L (136-145)
--- NOTE | 2018-02-17 18:47 | Infectious Disease Prog Note ---
Infectious Disease Subjective - Review of Systems Service Date: 02/17/18 Subjective: Doing well, no fever. Refusing IV antibiotics. Infectious Disease Objective - Results Result Diagrams: 02/12/18 06:00 02/17/18 13:39 Recent Labs: Laboratory Last Values WBC 9.2 Th/cmm (4.8-10.8) 02/12/18 06:00 RBC 4.06 Mil/cmm (3.80-5.20) 02/12/18 06:00 Hgb 11.4 gm/dL (12-16) L 02/12/18 06:00 Hct 34.0 % (41.0-60) L 02/12/18 06:00 MCV 83.8 fl (81-100) 02/12/18 06:00 MCH 28.1 pg (27.0-31.0) 02/12/18 06:00 MCHC Differential 33.6 pg (28.0-36.0) 02/12/18 06:00 RDW 16.8 % (11.5-20.0) 02/12/18 06:00 Plt Count 200 Th/cmm (150-400) 02/12/18 06:00 MPV 9.1 fl 02/12/18 06:00 Neutrophils % 69.1 % (40.0-80.0) 02/12/18 06:00 Lymphocytes % 16.9 % (20.0-50.0) L 02/12/18 06:00 Monocytes % 9.4 % (2.0-10.0) 02/12/18 06:00 Eosinophils % 3.7 % (0.0-5.0) 02/12/18 06:00 Basophils % 0.9 % (0.0-2.0) 02/12/18 06:00 PT 10.8 SECONDS (9.5-11.5) 02/11/18 15:11 INR 1.04 (0.5-1.4) 02/11/18 15:11 PTT (Actin FS) 25.9 SECONDS (26.0-38.0) L 02/12/18 06:00 D-Dimer 2920 ng/mL (100-400) H 02/12/18 06:00 Sodium 146 mEq/L (136-145) H 02/17/18 13:39 Potassium 3.7 mEq/L (3.5-5.1) 02/17/18 13:39 Chloride 112 mEq/L (98-107) H 02/17/18 13:39 Carbon Dioxide 19.4 mEq/L (21.0-31.0) L 02/17/18 13:39 Anion Gap 18.3 (7.0-16.0) H 02/17/18 13:39 BUN 77 mg/dL (7-25) H 02/17/18 13:39 Creatinine 2.0 mg/dL (0.6-1.2) H 02/17/18 13:39 Est GFR ( Amer) TNP 02/17/18 13:39 Est GFR (Non-Af Amer) TNP 02/17/18 13:39 BUN/Creatinine Ratio 38.5 02/17/18 13:39 Glucose 118 mg/dL (70-105) H 02/17/18 13:39 POC Glucose 95 MG/DL (70 - 105) 02/11/18 21:11 Whole Bld Lactic Acid 1.16 mmol/L (0.60-1.99) 02/11/18 15:21 Calcium 10.6 mg/dL (8.6-10.3) H 02/17/18 13:39 Phosphorus 3.5 mg/dL (2.5-5.0) 02/11/18 15:11 Magnesium 2.3 mg/dL (1.9-2.7) 02/11/18 15:11 Total Bilirubin 0.8 mg/dL (0.3-1.0) 02/12/18 06:00 AST 18 U/L (13-39) 02/12/18 06:00 ALT 10 U/L (7-52) 02/12/18 06:00 Alkaline Phosphatase 66 U/L (34-104) 02/12/18 06:00 Creatine Kinase 40 U/L (30-223) 02/12/18 06:00 Troponin I < 0.01 ng/mL (0.01-0.05) L 02/11/18 14:14 B-Natriuretic Peptide 588.0 pg/mL (5.0-100.0) H 02/17/18 13:39 Total Protein 6.6 gm/dL (6.0-8.3) 02/12/18 06:00 Albumin 3.6 gm/dL (3.7-5.3) L 02/12/18 06:00 Globulin 3.0 gm/dL 02/12/18 06:00 Albumin/Globulin Ratio 1.2 (1.0-1.8) 02/12/18 06:00 TSH 1.01 uIU/ml (0.34-5.60) 02/11/18 15:11 Urine Source MIDSTREAM 02/15/18 04:38 Urine Color YELLOW 02/15/18 04:38 Urine Clarity HAZY (CLEAR) 02/15/18 04:38 Urine pH 5.5 (4.6 - 8.0) 02/15/18 04:38 Ur Specific [place] 1.020 (1.005-1.030) 02/15/18 04:38 Urine Protein 100 mg/dL (NEGATIVE) H 02/15/18 04:38 Urine Glucose (UA) NEGATIVE mg/dL (NEGATIVE) 02/15/18 04:38 Urine Ketones TRACE mg/dL (NEGATIVE) 02/15/18 04:38 Urine Blood LARGE (NEGATIVE) H 02/15/18 04:38 Urine Nitrate NEGATIVE (NEGATIVE) 02/15/18 04:38 Urine Bilirubin NEGATIVE (NEGATIVE) 02/15/18 04:38 Urine Urobilinogen 0.2 E.U./dL (0.2 - 1.0) 02/15/18 04:38 Ur Leukocyte Esterase SMALL (NEGATIVE) H 02/15/18 04:38 Urine RBC 2-5 /hpf (0-5) 02/15/18 04:38 Urine WBC 6-10 /hpf (0-5) H 02/15/18 04:38 Ur Epithelial Cells MODERATE /lpf (FEW) 02/15/18 04:38 Urine Bacteria FEW /hpf (NONE SEEN) 02/15/18 04:38 Fine Granular Casts 0-2 /lpf (NONE SEEN) H 02/11/18 15:43 Urine Opiates Screen NEGATIVE (NEGATIVE) 02/11/18 15:43 Urine Methadone Screen NEGATIVE (NEGATIVE) 02/11/18 15:43 Ur Barbiturates Screen NEGATIVE (NEGATIVE) 02/11/18 15:43 Ur Tricyclics Screen NEGATIVE (NEGATIVE) 02/11/18 15:43 Ur Phencyclidine Scrn NEGATIVE (NEGATIVE) 02/11/18 15:43 Amphetamines Screen NEGATIVE (NEGATIVE) 02/11/18 15:43 U Methamphetamines Scrn NEGATIVE (NEGATIVE) 02/11/18 15:43 U Benzodiazepines Scrn POSITIVE (NEGATIVE) H 02/11/18 15:43 U Cocaine Metab Screen NEGATIVE (NEGATIVE) 02/11/18 15:43 U Cannabinoids Screen NEGATIVE (NEGATIVE) 02/11/18 15:43 - Physical Exam Vitals and I&O: Vital Signs Temp 96.7 F 02/17/18 18:00 Pulse 95 02/17/18 18:00 Resp 18 02/17/18 18:00 BP 148/57 02/17/18 18:00 Pulse Ox 98 02/17/18 16:00 Intake & Output 02/16/18 02/17/18 02/17/18 18:59 06:59 18:59 Intake Total 250 250 Balance 250 250 Weight (lbs) 65.68 kg 64.155 kg 63.56 kg Intake: Intake, IV Amount 100 200 Meropenem 500 mg In 100 200 Sodium Chloride 0.9% 100 ml @ 100 mls/hr IV Q12H [facility] Rx#:[id number] Oral 150 50 Other: # Voids 3 1 2 # Bowel Movements 0 0 0 Weight Source Bedscale Bedscale Bedscale Active Medications: Current Medications Acetaminophen (Tylenol 650mg Supp) 650 mg RC Q4H PRN PRN Reason: FEVER >100, OR MILD PAIN Stop: 04/13/18 08:40 Albuterol/Ipratropium (Duoneb Neb) 3 ml HHN Q4HRT PRN PRN Reason: Shortness of Breath Stop: 04/13/18 08:40 Alprazolam (Xanax) 0.5 mg PO BID [facility]; Protocol Stop: 04/13/18 08:59 Last Admin: 02/17/18 17:09 Dose: 0.5 mg Carvedilol (Coreg) 6.25 mg PO BID [facility] Stop: 04/13/18 09:59 Last Admin: 02/17/18 16:55 Dose: 6.25 mg Clopidogrel Bisulfate (Plavix) 75 mg PO DAILY [facility] Stop: 04/13/18 09:59 Last Admin: 02/17/18 09:48 Dose: 75 mg Doxycycline Hyclate (Vibramycin) 100 mg PO Q12HR [facility] Stop: 04/17/18 08:59 Last Admin: 02/17/18 09:48 Dose: 100 mg Furosemide (Lasix) 80 mg IVP BID [facility] Stop: 04/17/18 16:59 Last Admin: 02/17/18 17:10 Dose: 80 mg Heparin Sodium (Porcine) (Heparin) 5,000 units SUBQ Q12HR [facility] Stop: 04/13/18 20:59 Last Admin: 02/17/18 09:50 Dose: 5,000 units Meropenem 500 mg/ Sodium (Chloride) 100 mls @ 100 mls/hr IV Q12H [facility] Stop: 04/15/18 02:29 Last Infusion: 02/17/18 18:15 Dose: Infused Ibuprofen (Motrin) 400 mg PO Q4H PRN PRN Reason: PAIN Stop: 04/13/18 08:40 Lactobacillus Rhamnosus (Culturelle 15b) 1 each PO DAILY [facility] Stop: 04/13/18 13:59 Last Admin: 02/17/18 09:48 Dose: 1 each Levothyroxine Sodium 0.1 mg/ (Levothyroxine Sodium 0.05 mg) 0.15 mg PO QDAC [facility] Stop: 04/13/18 09:59 Last Admin: 02/17/18 07:55 Dose: Not Given Lorazepam (Ativan) 0.5 mg IM Q6HR PRN; Protocol PRN Reason: Anxiety Stop: 04/15/18 08:51 Last Admin: 02/17/18 16:57 Dose: 0.5 mg Megestrol Acetate (Megace) 200 mg PO DAILY [facility] Stop: 04/13/18 09:59 Last Admin: 02/17/18 09:48 Dose: 200 mg Metolazone (Zaroxolyn) 5 mg PO BID [facility] Stop: 04/15/18 16:59 Last Admin: 02/17/18 16:56 Dose: 5 mg Miscellaneous (Vte Chemical Prophylaxis Screen/ Admission) 1 ea MC PRN PRN PRN Reason: PROTOCOL Stop: 04/13/18 11:55 Miscellaneous (Probiotic Screen) 1 ea MC PRN PRN PRN Reason: PROTOCOL Stop: 04/13/18 12:31 Miscellaneous (Clinical Monitoring) 1 ea MC DAILY PRN PRN Reason: RENAL Stop: 04/16/18 15:38 Multivitamins/Vitamin C (Theragran) 1 tab PO DAILY [facility] Stop: 04/13/18 09:59 Last Admin: 02/17/18 09:50 Dose: 1 tab Nitroglycerin (Nitrostat) 0.4 mg SL Q5MIN PRN PRN Reason: Chest Pain Quetiapine Fumarate (Seroquel) 50 mg PO BID [facility]; Protocol Stop: 04/13/18 08:59 Last Admin: 02/17/18 16:58 Dose: 50 mg Vitamin D (Vitamin D3) 2,000 iu PO DAILY [facility] Stop: 04/13/18 09:59 Last Admin: 02/17/18 09:50 Dose: 2,000 iu General: no acute distress, well developed, well nourished HEENT: atraumatic, normocephalic, PERRLA Neck: supple, no thyromegaly Cardiovascular: S1S2, regular Lungs: clear to auscultation bilaterally, clear to percussion Abdomen: soft, no tender, no distended, no mass Extremities: no cyanosis, no clubbing, no edema Neurological: other (Confused) Skin: intact Infectious Disease Assmt/Plan - Problem List Patient Problems: All Active Problems Altered mental status (Acute) R41.82 Anemia (Acute) D64.9 Encephalopathy (Acute) G93.40 FALL WITH LEFT SHOULDER PAIN/CONFUSION (Acute) Facial injury (Acute) H/O fall (Acute) Z91.81 Renal insufficiency (Acute) rt parascapular bruising (Acute) - Assessment Assessment: 1. UTI. ESBL E coli 2. History of fall. 3. Dementia. 4. coronary artery disease.CABG 5. Thyroid disorder. 6. pacemaker placement. 7. CABG - Plan Plan: Continue Doxycycline for 5 days. Nutritional Asmnt/Malnutr-PDOC - Dietary Evaluation Malnutrition Findings (Please click <Entered> for more info): Nutritional Asmnt/Malnutrition Start: 02/15/18 18: 13 Text: Status: Complete Freq: Protocol: Document 02/15/18 18:16 ASHLEY (Rec: 02/15/18 18:28 [email or web address]) Nutritional Asmnt/Malnutrition Patient General Information Nutritional Screening Moderate Risk Diagnosis CHF, UTI,sinus Fx Pertinent Medical Hx/Surgical Hx CAD, thyroid disorder, aortic valve replacement, pacemaker, CAD, CABG Subjective Information Pt seen resting in bed at time of visit. Per STOCK SUPERVISOR, pt was not eating much, refusing to eat. Per nurse, pt is very confused, on restrains. Per EMR, PO intake 0-25%, refuse most of meals. ordered renal US per nurse note d/t blood in urine. Current Diet Order/ Nutrition Support [facility] soft chopped, cardiac Pertinent Medications lasix, culturelle, levothyroxine, megace, theragran, seroquel, vit D3 Pertinent Labs 02/15 K 3.4, BUN 47, Cr 1.3, glucose 124 Nutritional Hx/Data Height 1.6 m Height (Calculated Centimeters) 160.0 Current Weight (lbs) 66.224 kg Weight (Calculated Kilograms) 66.2 Weight (Calculated Grams) 59767.5 [place] Body Weight 115 Body Mass Index (BMI) 25.8 Weight Status Overweight GI Symptoms GI Symptoms None Last BM none Difficult in: None Skin Integrity/Comment: intact Current %PO Negligible < 25% Estimated Nutritional Goals BEE in Kcals: Using Current wt Calories/Kcals/Kg 23-27 Kcals Calculated 4956-2017 Protein: Using Current wt Protein g/k.8 Protein Calculated 52 Nutritional Problem 2. Problem Problem inadequate food intake Etiology confusion and poor cognition Signs/Symptoms: PO intake 0-25% 1. Problem Problem altered nutrition related labs Etiology electrolytes imbalance, possible renal function Signs/Symptoms: K 3.4, BUN 47, Cr 1.3 Malnutrition Alert Is there a minimum of two criteria No selected? Query Text:Check all the applicable criteria. A minimum of two criteria are recommended for diagnosis of either severe or non-severe malnutrition. Malnutrition Related to Morbid Obesity Malnutrition related to morbid obesity No Intervention/Recommendation Comments 1. Continue with current diet as ordered. Encourage oral intake and assist with meals as needed. 2. Monitor PO intake, wt, labs and skin integrity 3. F/U as moderate risk in 3-5 days, 02/18-02/20, PO check Expected Outcomes/Goals Expected Outcomes/Goals 1. PO intake to meet at least 75% of nutritional needs. 2. Wt stability, skin to remain intact, labs to approach WNL.
--- NOTE | 2018-02-17 19:48 | Progress Notes ---
DATE: 02/17/2018 SUBJECTIVE: The patient was seen in her room. The patient is a poor historian due to medical condition. Otherwise, the patient appears to be in no acute distress. OBJECTIVE: VITAL SIGNS: Temperature 97.6, heart rate 74, blood pressure 153/63, respirations of 18 and 96% on room air. HEENT: Head is atraumatic and normocephalic. Eyes: Bilateral conjunctivae are clear. Bilateral pupils equally round and reactive. NECK: Supple. No JVD. CARDIOVASCULAR: S1 and S2, without murmur. PULMONARY: Clear to auscultation. GASTROINTESTINAL: Soft and nontender without guarding. Positive bowel sounds. MUSCULOSKELETAL: No clubbing. No cyanosis noted. ASSESSMENT: 1. Urinary tract infection. 2. Dementia. 3. Status post fall. 4. Coronary artery disease. PLAN: We will continue current treatment. We will follow up with ID doctor for antibiotic management. Treatment plans were discussed with the patient's nurse. Treatment plans were discussed with Dr. Correa. JOB# [id number]
[2018-02-18] MEDS: Meropenem 500 MG in Sodium Chloride 0.9% 100 ML IV SCH (02:21)
[2018-02-18] MEDS: Lactobacillus Rhamnosus GG 15 Billion CFU CAP.SPRINK PO SCH (09:47)
[2018-02-18] MEDS: Vitamin D3 2,000 IU SGL PO SCH (09:48)
[2018-02-18] MEDS: Metolazone 5 MG TAB PO SCH ×2 (09:49→18:45)
[2018-02-18] MEDS: Multivitamin Tab PO SCH (09:50)
[2018-02-18 11:08] LABS: EOSINOPHILE ABSOLUTE 0.1 Th/cmm (0.1-0.4)
[2018-02-18 11:12] LABS: % EOSINOPHILS 0.8 % (0.0-5.0); % LYMPHOCYTES 13.5 % (20.0-50.0); % MONOCYTES 6.5 % (2.0-10.0); % NEUTROPHILS 79.2 % (40.0-80.0); HEMATOCRIT 43.8 % (41.0-60); HEMOGLOBIN 14.3 gm/dL (12-16); MEAN CORPUSCULAR HEMOGLOBIN 27.7 pg (27.0-31.0); MEAN CORPUSCULAR HGB CONC 32.6 pg (28.0-36.0); NEUTROPHILE ABSOLUTE 11.7 Th/cmm (1.8-8.0); PLATELET COUNT 193 Th/cmm (150-400); RED BLOOD COUNT 5.16 Mil/cmm (3.80-5.20); RED CELL DISTRIBUTION WIDTH 17.3 % (11.5-20.0); WHITE BLOOD COUNT 14.8 Th/cmm (4.8-10.8)
[2018-02-18 11:27] LABS: CALCIUM SERUM 10.4 mg/dL (8.6-10.3); CARBON DIOXIDE 25.3 mEq/L (21.0-31.0); CHLORIDE 110 mEq/L (98-107); CREATININE - SERUM 2.2 mg/dL (0.6-1.2); GLUCOSE 137 mg/dL (70-105); POTASSIUM SERUM 3.3 mEq/L (3.5-5.1); SODIUM SERUM 148 mEq/L (136-145)
[2018-02-18 11:36] LABS: BUN - UREA NITROGEN 92 mg/dL (7-25)
--- NOTE | 2018-02-18 12:28 | General Progress Note ---
Subjective - Review of Systems Events since last encounter: no fever refusing iv antibiotics Objective - Results Result Diagrams: 02/18/18 11:01 02/18/18 11:01 Recent Labs: Laboratory Last Values WBC 14.8 Th/cmm (4.8-10.8) H 02/18/18 11:01 RBC 5.16 Mil/cmm (3.80-5.20) 02/18/18 11:01 Hgb 14.3 gm/dL (12-16) 02/18/18 11:01 Hct 43.8 % (41.0-60) 02/18/18 11:01 MCV 85.0 fl (81-100) 02/18/18 11:01 MCH 27.7 pg (27.0-31.0) 02/18/18 11:01 MCHC Differential 32.6 pg (28.0-36.0) 02/18/18 11:01 RDW 17.3 % (11.5-20.0) 02/18/18 11:01 Plt Count 193 Th/cmm (150-400) 02/18/18 11:01 MPV 10.0 fl 02/18/18 11:01 Neutrophils % 79.2 % (40.0-80.0) 02/18/18 11:01 Lymphocytes % 13.5 % (20.0-50.0) L 02/18/18 11:01 Monocytes % 6.5 % (2.0-10.0) 02/18/18 11:01 Eosinophils % 0.8 % (0.0-5.0) 02/18/18 11:01 Basophils % 0.0 % (0.0-2.0) 02/18/18 11:01 PT 10.8 SECONDS (9.5-11.5) 02/11/18 15:11 INR 1.04 (0.5-1.4) 02/11/18 15:11 PTT (Actin FS) 25.9 SECONDS (26.0-38.0) L 02/12/18 06:00 D-Dimer 2920 ng/mL (100-400) H 02/12/18 06:00 Sodium 148 mEq/L (136-145) H 02/18/18 11:01 Potassium 3.3 mEq/L (3.5-5.1) L 02/18/18 11:01 Chloride 110 mEq/L (98-107) H 02/18/18 11:01 Carbon Dioxide 25.3 mEq/L (21.0-31.0) 02/18/18 11:01 Anion Gap 16.0 (7.0-16.0) 02/18/18 11:01 BUN 92 mg/dL (7-25) H* 02/18/18 11:01 Creatinine 2.2 mg/dL (0.6-1.2) H 02/18/18 11:01 Est GFR ( Amer) TNP 02/18/18 11:01 Est GFR (Non-Af Amer) TNP 02/18/18 11:01 BUN/Creatinine Ratio 41.8 02/18/18 11:01 Glucose 137 mg/dL (70-105) H 02/18/18 11:01 POC Glucose 95 MG/DL (70 - 105) 02/11/18 21:11 Whole Bld Lactic Acid 1.16 mmol/L (0.60-1.99) 02/11/18 15:21 Calcium 10.4 mg/dL (8.6-10.3) H 02/18/18 11:01 Phosphorus 3.5 mg/dL (2.5-5.0) 02/11/18 15:11 Magnesium 2.3 mg/dL (1.9-2.7) 02/11/18 15:11 Total Bilirubin 0.8 mg/dL (0.3-1.0) 02/12/18 06:00 AST 18 U/L (13-39) 02/12/18 06:00 ALT 10 U/L (7-52) 02/12/18 06:00 Alkaline Phosphatase 66 U/L (34-104) 02/12/18 06:00 Creatine Kinase 40 U/L (30-223) 02/12/18 06:00 Troponin I < 0.01 ng/mL (0.01-0.05) L 02/11/18 14:14 B-Natriuretic Peptide 672.0 pg/mL (5.0-100.0) H 02/18/18 11:01 Total Protein 6.6 gm/dL (6.0-8.3) 02/12/18 06:00 Albumin 3.6 gm/dL (3.7-5.3) L 02/12/18 06:00 Globulin 3.0 gm/dL 02/12/18 06:00 Albumin/Globulin Ratio 1.2 (1.0-1.8) 02/12/18 06:00 TSH 1.01 uIU/ml (0.34-5.60) 02/11/18 15:11 Urine Source MIDSTREAM 02/15/18 04:38 Urine Color YELLOW 02/15/18 04:38 Urine Clarity HAZY (CLEAR) 02/15/18 04:38 Urine pH 5.5 (4.6 - 8.0) 02/15/18 04:38 Ur Specific [place] 1.020 (1.005-1.030) 02/15/18 04:38 Urine Protein 100 mg/dL (NEGATIVE) H 02/15/18 04:38 Urine Glucose (UA) NEGATIVE mg/dL (NEGATIVE) 02/15/18 04:38 Urine Ketones TRACE mg/dL (NEGATIVE) 02/15/18 04:38 Urine Blood LARGE (NEGATIVE) H 02/15/18 04:38 Urine Nitrate NEGATIVE (NEGATIVE) 02/15/18 04:38 Urine Bilirubin NEGATIVE (NEGATIVE) 02/15/18 04:38 Urine Urobilinogen 0.2 E.U./dL (0.2 - 1.0) 02/15/18 04:38 Ur Leukocyte Esterase SMALL (NEGATIVE) H 02/15/18 04:38 Urine RBC 2-5 /hpf (0-5) 02/15/18 04:38 Urine WBC 6-10 /hpf (0-5) H 02/15/18 04:38 Ur Epithelial Cells MODERATE /lpf (FEW) 02/15/18 04:38 Urine Bacteria FEW /hpf (NONE SEEN) 02/15/18 04:38 Fine Granular Casts 0-2 /lpf (NONE SEEN) H 02/11/18 15:43 Urine Opiates Screen NEGATIVE (NEGATIVE) 02/11/18 15:43 Urine Methadone Screen NEGATIVE (NEGATIVE) 02/11/18 15:43 Ur Barbiturates Screen NEGATIVE (NEGATIVE) 02/11/18 15:43 Ur Tricyclics Screen NEGATIVE (NEGATIVE) 02/11/18 15:43 Ur Phencyclidine Scrn NEGATIVE (NEGATIVE) 02/11/18 15:43 Amphetamines Screen NEGATIVE (NEGATIVE) 02/11/18 15:43 U Methamphetamines Scrn NEGATIVE (NEGATIVE) 02/11/18 15:43 U Benzodiazepines Scrn POSITIVE (NEGATIVE) H 02/11/18 15:43 U Cocaine Metab Screen NEGATIVE (NEGATIVE) 02/11/18 15:43 U Cannabinoids Screen NEGATIVE (NEGATIVE) 02/11/18 15:43 - Physical Exam Vitals and I&O: Vital Signs Temp 96.4 F 02/18/18 08:00 Pulse 71 02/18/18 09:48 Resp 18 02/18/18 08:00 BP 141/73 02/18/18 09:50 Pulse Ox 95 02/18/18 08:00 Intake & Output 02/17/18 02/18/18 02/18/18 18:59 06:59 18:59 Intake Total 250 Balance 250 Weight (lbs) 63.56 kg 63.56 kg Intake: Intake, IV Amount 200 Meropenem 500 mg In 200 Sodium Chloride 0.9% 100 ml @ 100 mls/hr IV Q12H [facility] Rx#:[id number] Oral 50 Other: # Voids 2 # Bowel Movements 0 Weight Source Bedscale Bedscale Active Medications: Current Medications Acetaminophen (Tylenol 650mg Supp) 650 mg RC Q4H PRN PRN Reason: FEVER >100, OR MILD PAIN Stop: 04/13/18 08:40 Albuterol/Ipratropium (Duoneb Neb) 3 ml HHN Q4HRT PRN PRN Reason: Shortness of Breath Stop: 04/13/18 08:40 Alprazolam (Xanax) 0.5 mg PO BID [facility]; Protocol Stop: 04/13/18 08:59 Last Admin: 02/18/18 09:48 Dose: 0.5 mg Carvedilol (Coreg) 6.25 mg PO BID [facility] Stop: 04/13/18 09:59 Last Admin: 02/18/18 09:48 Dose: 6.25 mg Clopidogrel Bisulfate (Plavix) 75 mg PO DAILY [facility] Stop: 04/13/18 09:59 Last Admin: 02/18/18 09:47 Dose: 75 mg Doxycycline Hyclate (Vibramycin) 100 mg PO Q12HR [facility] Stop: 04/17/18 08:59 Last Admin: 02/18/18 09:47 Dose: 100 mg Furosemide (Lasix) 80 mg IVP BID [facility] Stop: 04/17/18 16:59 Last Admin: 02/18/18 09:50 Dose: 80 mg Heparin Sodium (Porcine) (Heparin) 5,000 units SUBQ Q12HR [facility] Stop: 04/13/18 20:59 Last Admin: 02/18/18 09:50 Dose: 5,000 units Meropenem 500 mg/ Sodium (Chloride) 50 mls @ 50 mls/hr IV Q12H [facility] Stop: 04/19/18 14:59 Ibuprofen (Motrin) 400 mg PO Q4H PRN PRN Reason: PAIN Stop: 04/13/18 08:40 Lactobacillus Rhamnosus (Culturelle 15b) 1 each PO DAILY [facility] Stop: 04/13/18 13:59 Last Admin: 02/18/18 09:47 Dose: 1 each Levothyroxine Sodium 0.1 mg/ (Levothyroxine Sodium 0.05 mg) 0.15 mg PO QDAC [facility] Stop: 04/13/18 09:59 Last Admin: 02/18/18 06:43 Dose: Not Given Lorazepam (Ativan) 0.5 mg IM Q6HR PRN; Protocol PRN Reason: Anxiety Stop: 04/15/18 08:51 Last Admin: 02/18/18 06:27 Dose: 0.5 mg Megestrol Acetate (Megace) 200 mg PO DAILY [facility] Stop: 04/13/18 09:59 Last Admin: 02/18/18 09:49 Dose: 200 mg Metolazone (Zaroxolyn) 5 mg PO BID [facility] Stop: 04/15/18 16:59 Last Admin: 02/18/18 09:49 Dose: 5 mg Miscellaneous (Vte Chemical Prophylaxis Screen/ Admission) 1 ea MC PRN PRN PRN Reason: PROTOCOL Stop: 04/13/18 11:55 Miscellaneous (Probiotic Screen) 1 ea MC PRN PRN PRN Reason: PROTOCOL Stop: 04/13/18 12:31 Miscellaneous (Clinical Monitoring) 1 ea MC DAILY PRN PRN Reason: RENAL Stop: 04/16/18 15:38 Multivitamins/Vitamin C (Theragran) 1 tab PO DAILY [facility] Stop: 04/13/18 09:59 Last Admin: 02/18/18 09:50 Dose: 1 tab Nitroglycerin (Nitrostat) 0.4 mg SL Q5MIN PRN PRN Reason: Chest Pain Quetiapine Fumarate (Seroquel) 50 mg PO BID [facility]; Protocol Stop: 04/13/18 08:59 Last Admin: 02/18/18 09:49 Dose: 50 mg Vitamin D (Vitamin D3) 2,000 iu PO DAILY [facility] Stop: 04/13/18 09:59 Last Admin: 02/18/18 09:48 Dose: 2,000 iu General: No acute distress HEENT: Atraumatic, PERRLA Neck: Supple, JVD Cardiovascular: Regular rate, Normal S1 Lungs: Clear to auscultation Assessment/Plan - Problem List Patient Problems: All Active Problems Altered mental status (Acute) R41.82 Anemia (Acute) D64.9 Encephalopathy (Acute) G93.40 FALL WITH LEFT SHOULDER PAIN/CONFUSION (Acute) Facial injury (Acute) H/O fall (Acute) Z91.81 Renal insufficiency (Acute) rt parascapular bruising (Acute) - Plan Plan: as per order sheet Nutritional Asmnt/Malnutr-PDOC - Dietary Evaluation Malnutrition Findings (Please click <Entered> for more info): Nutritional Asmnt/Malnutrition Start: 02/15/18 18: 13 Text: Status: Complete Freq: Protocol: Document 02/15/18 18:16 [email or web address] (Rec: 02/15/18 18:28 [id number]) Nutritional Asmnt/Malnutrition Patient General Information Nutritional Screening Moderate Risk Diagnosis CHF, UTI,sinus Fx Pertinent Medical Hx/Surgical Hx CAD, thyroid disorder, aortic valve replacement, pacemaker, CAD, CABG Subjective Information Pt seen resting in bed at time of visit. Per CRUISE COORDINATOR, pt was not eating much, refusing to eat. Per nurse, pt is very confused, on restrains. Per EMR, PO intake 0-25%, refuse most of meals. MD ordered renal US per nurse note d/t blood in urine. Current Diet Order/ Nutrition Support [facility] soft chopped, cardiac Pertinent Medications lasix, culturelle, levothyroxine, megace, theragran, seroquel, vit D3 Pertinent Labs 02/15 K 3.4, BUN 47, Cr 1.3, glucose 124 Nutritional Hx/Data Height 1.6 m Height (Calculated Centimeters) 160.0 Current Weight (lbs) 66.224 kg Weight (Calculated Kilograms) 66.2 Weight (Calculated Grams) 95261.5 [place] Body Weight 115 Body Mass Index (BMI) 25.8 Weight Status Overweight GI Symptoms GI Symptoms None Last BM none Difficult in: None Skin Integrity/Comment: intact Current %PO Negligible < 25% Estimated Nutritional Goals BEE in Kcals: Using Current wt Calories/Kcals/Kg 23-27 Kcals Calculated 1742-8453 Protein: Using Current wt Protein g/k.8 Protein Calculated 52 Nutritional Problem 2. Problem Problem inadequate food intake Etiology confusion and poor cognition Signs/Symptoms: PO intake 0-25% 1. Problem Problem altered nutrition related labs Etiology electrolytes imbalance, possible renal function Signs/Symptoms: K 3.4, BUN 47, Cr 1.3 Malnutrition Alert Is there a minimum of two criteria No selected? Query Text:Check all the applicable criteria. A minimum of two criteria are recommended for diagnosis of either severe or non-severe malnutrition. Malnutrition Related to Morbid Obesity Malnutrition related to morbid obesity No Intervention/Recommendation Comments 1. Continue with current diet as ordered. Encourage oral intake and assist with meals as needed. 2. Monitor PO intake, wt, labs and skin integrity 3. F/U as moderate risk in 3-5 days, 02/18-02/20, PO check Expected Outcomes/Goals Expected Outcomes/Goals 1. PO intake to meet at least 75% of nutritional needs. 2. Wt stability, skin to remain intact, labs to approach WNL.
[2018-02-18] MEDS: Meropenem 500 MG in Sodium Chloride 0.9% 50 ML IV SCH (15:50)
--- NOTE | 2018-02-18 19:31 | Infectious Disease Prog Note ---
Infectious Disease Subjective - Review of Systems Service Date: 02/18/18 Subjective: Doing well, no fever. Refusing IV antibiotics. Infectious Disease Objective - Results Result Diagrams: 02/18/18 11:01 02/18/18 11:01 Recent Labs: Laboratory Last Values WBC 14.8 Th/cmm (4.8-10.8) H 02/18/18 11:01 RBC 5.16 Mil/cmm (3.80-5.20) 02/18/18 11:01 Hgb 14.3 gm/dL (12-16) 02/18/18 11:01 Hct 43.8 % (41.0-60) 02/18/18 11:01 MCV 85.0 fl (81-100) 02/18/18 11:01 MCH 27.7 pg (27.0-31.0) 02/18/18 11:01 MCHC Differential 32.6 pg (28.0-36.0) 02/18/18 11:01 RDW 17.3 % (11.5-20.0) 02/18/18 11:01 Plt Count 193 Th/cmm (150-400) 02/18/18 11:01 MPV 10.0 fl 02/18/18 11:01 Neutrophils % 79.2 % (40.0-80.0) 02/18/18 11:01 Lymphocytes % 13.5 % (20.0-50.0) L 02/18/18 11:01 Monocytes % 6.5 % (2.0-10.0) 02/18/18 11:01 Eosinophils % 0.8 % (0.0-5.0) 02/18/18 11:01 Basophils % 0.0 % (0.0-2.0) 02/18/18 11:01 PT 10.8 SECONDS (9.5-11.5) 02/11/18 15:11 INR 1.04 (0.5-1.4) 02/11/18 15:11 PTT (Actin FS) 25.9 SECONDS (26.0-38.0) L 02/12/18 06:00 D-Dimer 2920 ng/mL (100-400) H 02/12/18 06:00 Sodium 148 mEq/L (136-145) H 02/18/18 11:01 Potassium 3.3 mEq/L (3.5-5.1) L 02/18/18 11:01 Chloride 110 mEq/L (98-107) H 02/18/18 11:01 Carbon Dioxide 25.3 mEq/L (21.0-31.0) 02/18/18 11:01 Anion Gap 16.0 (7.0-16.0) 02/18/18 11:01 BUN 92 mg/dL (7-25) H* 02/18/18 11:01 Creatinine 2.2 mg/dL (0.6-1.2) H 02/18/18 11:01 Est GFR ( Amer) TNP 02/18/18 11:01 Est GFR (Non-Af Amer) TNP 02/18/18 11:01 BUN/Creatinine Ratio 41.8 02/18/18 11:01 Glucose 137 mg/dL (70-105) H 02/18/18 11:01 POC Glucose 95 MG/DL (70 - 105) 02/11/18 21:11 Whole Bld Lactic Acid 1.16 mmol/L (0.60-1.99) 02/11/18 15:21 Calcium 10.4 mg/dL (8.6-10.3) H 02/18/18 11:01 Phosphorus 3.5 mg/dL (2.5-5.0) 02/11/18 15:11 Magnesium 2.3 mg/dL (1.9-2.7) 02/11/18 15:11 Total Bilirubin 0.8 mg/dL (0.3-1.0) 02/12/18 06:00 AST 18 U/L (13-39) 02/12/18 06:00 ALT 10 U/L (7-52) 02/12/18 06:00 Alkaline Phosphatase 66 U/L (34-104) 02/12/18 06:00 Creatine Kinase 40 U/L (30-223) 02/12/18 06:00 Troponin I < 0.01 ng/mL (0.01-0.05) L 02/11/18 14:14 B-Natriuretic Peptide 672.0 pg/mL (5.0-100.0) H 02/18/18 11:01 Total Protein 6.6 gm/dL (6.0-8.3) 02/12/18 06:00 Albumin 3.6 gm/dL (3.7-5.3) L 02/12/18 06:00 Globulin 3.0 gm/dL 02/12/18 06:00 Albumin/Globulin Ratio 1.2 (1.0-1.8) 02/12/18 06:00 TSH 1.01 uIU/ml (0.34-5.60) 02/11/18 15:11 Urine Source MIDSTREAM 02/15/18 04:38 Urine Color YELLOW 02/15/18 04:38 Urine Clarity HAZY (CLEAR) 02/15/18 04:38 Urine pH 5.5 (4.6 - 8.0) 02/15/18 04:38 Ur Specific [place] 1.020 (1.005-1.030) 02/15/18 04:38 Urine Protein 100 mg/dL (NEGATIVE) H 02/15/18 04:38 Urine Glucose (UA) NEGATIVE mg/dL (NEGATIVE) 02/15/18 04:38 Urine Ketones TRACE mg/dL (NEGATIVE) 02/15/18 04:38 Urine Blood LARGE (NEGATIVE) H 02/15/18 04:38 Urine Nitrate NEGATIVE (NEGATIVE) 02/15/18 04:38 Urine Bilirubin NEGATIVE (NEGATIVE) 02/15/18 04:38 Urine Urobilinogen 0.2 E.U./dL (0.2 - 1.0) 02/15/18 04:38 Ur Leukocyte Esterase SMALL (NEGATIVE) H 02/15/18 04:38 Urine RBC 2-5 /hpf (0-5) 02/15/18 04:38 Urine WBC 6-10 /hpf (0-5) H 02/15/18 04:38 Ur Epithelial Cells MODERATE /lpf (FEW) 02/15/18 04:38 Urine Bacteria FEW /hpf (NONE SEEN) 02/15/18 04:38 Fine Granular Casts 0-2 /lpf (NONE SEEN) H 02/11/18 15:43 Urine Opiates Screen NEGATIVE (NEGATIVE) 02/11/18 15:43 Urine Methadone Screen NEGATIVE (NEGATIVE) 02/11/18 15:43 Ur Barbiturates Screen NEGATIVE (NEGATIVE) 02/11/18 15:43 Ur Tricyclics Screen NEGATIVE (NEGATIVE) 02/11/18 15:43 Ur Phencyclidine Scrn NEGATIVE (NEGATIVE) 02/11/18 15:43 Amphetamines Screen NEGATIVE (NEGATIVE) 02/11/18 15:43 U Methamphetamines Scrn NEGATIVE (NEGATIVE) 02/11/18 15:43 U Benzodiazepines Scrn POSITIVE (NEGATIVE) H 02/11/18 15:43 U Cocaine Metab Screen NEGATIVE (NEGATIVE) 02/11/18 15:43 U Cannabinoids Screen NEGATIVE (NEGATIVE) 02/11/18 15:43 - Physical Exam Vitals and I&O: Vital Signs Temp 97.0 F 02/18/18 12:00 Pulse 71 02/18/18 18:44 Resp 18 02/18/18 12:00 BP 134/69 02/18/18 18:45 Pulse Ox 94 02/18/18 12:00 Intake & Output 02/18/18 02/18/18 02/19/18 06:59 18:59 06:59 Weight (lbs) 63.56 kg Other: Weight Source Bedscale Active Medications: Current Medications Acetaminophen (Tylenol 650mg Supp) 650 mg RC Q4H PRN PRN Reason: FEVER >100, OR MILD PAIN Stop: 04/13/18 08:40 Albuterol/Ipratropium (Duoneb Neb) 3 ml HHN Q4HRT PRN PRN Reason: Shortness of Breath Stop: 04/13/18 08:40 Alprazolam (Xanax) 0.5 mg PO BID [facility]; Protocol Stop: 04/13/18 08:59 Last Admin: 02/18/18 18:45 Dose: 0.5 mg Carvedilol (Coreg) 6.25 mg PO BID [facility] Stop: 04/13/18 09:59 Last Admin: 02/18/18 18:44 Dose: 6.25 mg Clopidogrel Bisulfate (Plavix) 75 mg PO DAILY [facility] Stop: 04/13/18 09:59 Last Admin: 02/18/18 09:47 Dose: 75 mg Doxycycline Hyclate (Vibramycin) 100 mg PO Q12HR [facility] Stop: 04/17/18 08:59 Last Admin: 02/18/18 09:47 Dose: 100 mg Furosemide (Lasix) 80 mg IVP BID [facility] Stop: 04/17/18 16:59 Last Admin: 02/18/18 18:40 Dose: 80 mg Heparin Sodium (Porcine) (Heparin) 5,000 units SUBQ Q12HR [facility] Stop: 04/13/18 20:59 Last Admin: 02/18/18 09:50 Dose: 5,000 units Meropenem 500 mg/ Sodium (Chloride) 50 mls @ 50 mls/hr IV Q12H [facility] Stop: 04/19/18 14:59 Last Admin: 02/18/18 15:50 Dose: 50 mls/hr Ibuprofen (Motrin) 400 mg PO Q4H PRN PRN Reason: PAIN Stop: 04/13/18 08:40 Lactobacillus Rhamnosus (Culturelle 15b) 1 each PO DAILY [facility] Stop: 04/13/18 13:59 Last Admin: 02/18/18 09:47 Dose: 1 each Levothyroxine Sodium 0.1 mg/ (Levothyroxine Sodium 0.05 mg) 0.15 mg PO QDAC [facility] Stop: 04/13/18 09:59 Last Admin: 02/18/18 06:43 Dose: Not Given Lorazepam (Ativan) 0.5 mg IM Q6HR PRN; Protocol PRN Reason: Anxiety Stop: 04/15/18 08:51 Last Admin: 02/18/18 06:27 Dose: 0.5 mg Megestrol Acetate (Megace) 200 mg PO DAILY [facility] Stop: 04/13/18 09:59 Last Admin: 02/18/18 09:49 Dose: 200 mg Metolazone (Zaroxolyn) 5 mg PO BID [facility] Stop: 04/15/18 16:59 Last Admin: 02/18/18 18:45 Dose: 5 mg Miscellaneous (Vte Chemical Prophylaxis Screen/ Admission) 1 ea MC PRN PRN PRN Reason: PROTOCOL Stop: 04/13/18 11:55 Miscellaneous (Probiotic Screen) 1 ea MC PRN PRN PRN Reason: PROTOCOL Stop: 04/13/18 12:31 Miscellaneous (Clinical Monitoring) 1 ea MC DAILY PRN PRN Reason: RENAL Stop: 04/16/18 15:38 Multivitamins/Vitamin C (Theragran) 1 tab PO DAILY [facility] Stop: 04/13/18 09:59 Last Admin: 02/18/18 09:50 Dose: 1 tab Nitroglycerin (Nitrostat) 0.4 mg SL Q5MIN PRN PRN Reason: Chest Pain Quetiapine Fumarate (Seroquel) 50 mg PO BID [facility]; Protocol Stop: 04/13/18 08:59 Last Admin: 02/18/18 18:45 Dose: 50 mg Vitamin D (Vitamin D3) 2,000 iu PO DAILY [facility] Stop: 04/13/18 09:59 Last Admin: 02/18/18 09:48 Dose: 2,000 iu General: no acute distress, well developed, well nourished HEENT: atraumatic, normocephalic, PERRLA Neck: supple, no thyromegaly Cardiovascular: S1S2, regular Lungs: clear to auscultation bilaterally, clear to percussion Abdomen: soft, no tender, no distended Extremities: no cyanosis, no clubbing, no edema Neurological: awake, alert, other (Confused) Infectious Disease Assmt/Plan - Problem List Patient Problems: All Active Problems Altered mental status (Acute) R41.82 Anemia (Acute) D64.9 Encephalopathy (Acute) G93.40 FALL WITH LEFT SHOULDER PAIN/CONFUSION (Acute) Facial injury (Acute) H/O fall (Acute) Z91.81 Renal insufficiency (Acute) rt parascapular bruising (Acute) - Assessment Assessment: 1. UTI. ESBL E coli 2. History of fall. 3. Dementia. 4. coronary artery disease.CABG 5. Thyroid disorder. 6. pacemaker placement. 7. CABG - Plan Plan: Continue Doxycycline for 3 days. check UA Nutritional Asmnt/Malnutr-PDOC - Dietary Evaluation Malnutrition Findings (Please click <Entered> for more info): Nutritional Asmnt/Malnutrition Start: 02/15/18 18: 13 Text: Status: Complete Freq: Protocol: Document 02/15/18 18:16 DAVEY (Rec: 02/15/18 18:28 [email or web address] [id number]) Nutritional Asmnt/Malnutrition Patient General Information Nutritional Screening Moderate Risk Diagnosis CHF, UTI,sinus Fx Pertinent Medical Hx/Surgical Hx CAD, thyroid disorder, aortic valve replacement, pacemaker, CAD, CABG Subjective Information Pt seen resting in bed at time of visit. Per ALMOND BLANCHER HAND, pt was not eating much, refusing to eat. Per nurse, pt is very confused, on restrains. Per EMR, PO intake 0-25%, refuse most of meals. MD ordered renal US per nurse note d/t blood in urine. Current Diet Order/ Nutrition Support [facility] soft chopped, cardiac Pertinent Medications lasix, culturelle, levothyroxine, megace, theragran, seroquel, vit D3 Pertinent Labs 02/15 K 3.4, BUN 47, Cr 1.3, glucose 124 Nutritional Hx/Data Height 1.6 m Height (Calculated Centimeters) 160.0 Current Weight (lbs) 66.224 kg Weight (Calculated Kilograms) 66.2 Weight (Calculated Grams) 46997.5 [place] Body Weight 115 Body Mass Index (BMI) 25.8 Weight Status Overweight GI Symptoms GI Symptoms None Last BM none Difficult in: None Skin Integrity/Comment: intact Current %PO Negligible < 25% Estimated Nutritional Goals BEE in Kcals: Using Current wt Calories/Kcals/Kg 23-27 Kcals Calculated 9024-3629 Protein: Using Current wt Protein g/k.8 Protein Calculated 52 Nutritional Problem 2. Problem Problem inadequate food intake Etiology confusion and poor cognition Signs/Symptoms: PO intake 0-25% 1. Problem Problem altered nutrition related labs Etiology electrolytes imbalance, possible renal function Signs/Symptoms: K 3.4, BUN 47, Cr 1.3 Malnutrition Alert Is there a minimum of two criteria No selected? Query Text:Check all the applicable criteria. A minimum of two criteria are recommended for diagnosis of either severe or non-severe malnutrition. Malnutrition Related to Morbid Obesity Malnutrition related to morbid obesity No Intervention/Recommendation Comments 1. Continue with current diet as ordered. Encourage oral intake and assist with meals as needed. 2. Monitor PO intake, wt, labs and skin integrity 3. F/U as moderate risk in 3-5 days, 02/18-02/20, PO check Expected Outcomes/Goals Expected Outcomes/Goals 1. PO intake to meet at least 75% of nutritional needs. 2. Wt stability, skin to remain intact, labs to approach WNL.
[2018-02-18] MEDS: Sodium Chloride 0.45% 1,000 ML IV SCH (22:47)
[2018-02-19] MEDS: Meropenem 500 MG in Sodium Chloride 0.9% 50 ML IV SCH ×2 (04:12→17:13)
[2018-02-19 06:04] LABS: ANION GAP 18.2 (7.0-16.0); CALCIUM SERUM 10.5 mg/dL (8.6-10.3); CARBON DIOXIDE 24.5 mEq/L (21.0-31.0); CHLORIDE 110 mEq/L (98-107); CREATININE - SERUM 2.5 mg/dL (0.6-1.2); GLUCOSE 137 mg/dL (70-105); POTASSIUM SERUM 3.7 mEq/L (3.5-5.1); SODIUM SERUM 149 mEq/L (136-145)
[2018-02-19 06:14] LABS: BUN - UREA NITROGEN 104 mg/dL (7-25)
[2018-02-19] MEDS: Sodium Chloride 0.45% 1,000 ML IV SCH ×2 (06:42→17:15)
[2018-02-19] MEDS: Multivitamin Tab PO SCH (09:29)
[2018-02-19] MEDS: Lactobacillus Rhamnosus GG 15 Billion CFU CAP.SPRINK PO SCH (09:29)
[2018-02-19] MEDS: Metolazone 5 MG TAB PO SCH (09:29)
[2018-02-19] MEDS: Vitamin D3 2,000 IU SGL PO SCH (09:29)
--- NOTE | 2018-02-19 13:29 | Infectious Disease Prog Note ---
Infectious Disease Subjective - Review of Systems Service Date: 02/19/18 Subjective: Doing well, no fever. Refusing IV antibiotics. Infectious Disease Objective - Results Result Diagrams: 02/18/18 11:01 02/19/18 05:00 Recent Labs: Laboratory Last Values WBC 14.8 Th/cmm (4.8-10.8) H 02/18/18 11:01 RBC 5.16 Mil/cmm (3.80-5.20) 02/18/18 11:01 Hgb 14.3 gm/dL (12-16) 02/18/18 11:01 Hct 43.8 % (41.0-60) 02/18/18 11:01 MCV 85.0 fl (81-100) 02/18/18 11:01 MCH 27.7 pg (27.0-31.0) 02/18/18 11:01 MCHC Differential 32.6 pg (28.0-36.0) 02/18/18 11:01 RDW 17.3 % (11.5-20.0) 02/18/18 11:01 Plt Count 193 Th/cmm (150-400) 02/18/18 11:01 MPV 10.0 fl 02/18/18 11:01 Neutrophils % 79.2 % (40.0-80.0) 02/18/18 11:01 Lymphocytes % 13.5 % (20.0-50.0) L 02/18/18 11:01 Monocytes % 6.5 % (2.0-10.0) 02/18/18 11:01 Eosinophils % 0.8 % (0.0-5.0) 02/18/18 11:01 Basophils % 0.0 % (0.0-2.0) 02/18/18 11:01 PT 10.8 SECONDS (9.5-11.5) 02/11/18 15:11 INR 1.04 (0.5-1.4) 02/11/18 15:11 PTT (Actin FS) 25.9 SECONDS (26.0-38.0) L 02/12/18 06:00 D-Dimer 2920 ng/mL (100-400) H 02/12/18 06:00 Sodium 149 mEq/L (136-145) H 02/19/18 05:00 Potassium 3.7 mEq/L (3.5-5.1) 02/19/18 05:00 Chloride 110 mEq/L (98-107) H 02/19/18 05:00 Carbon Dioxide 24.5 mEq/L (21.0-31.0) 02/19/18 05:00 Anion Gap 18.2 (7.0-16.0) H 02/19/18 05:00 BUN 104 mg/dL (7-25) H* 02/19/18 05:00 Creatinine 2.5 mg/dL (0.6-1.2) H 02/19/18 05:00 Est GFR ( Amer) TNP 02/19/18 05:00 Est GFR (Non-Af Amer) TNP 02/19/18 05:00 BUN/Creatinine Ratio 41.6 02/19/18 05:00 Glucose 137 mg/dL (70-105) H 02/19/18 05:00 POC Glucose 95 MG/DL (70 - 105) 02/11/18 21:11 Whole Bld Lactic Acid 1.16 mmol/L (0.60-1.99) 02/11/18 15:21 Calcium 10.5 mg/dL (8.6-10.3) H 02/19/18 05:00 Phosphorus 3.5 mg/dL (2.5-5.0) 02/11/18 15:11 Magnesium 2.3 mg/dL (1.9-2.7) 02/11/18 15:11 Total Bilirubin 0.8 mg/dL (0.3-1.0) 02/12/18 06:00 AST 18 U/L (13-39) 02/12/18 06:00 ALT 10 U/L (7-52) 02/12/18 06:00 Alkaline Phosphatase 66 U/L (34-104) 02/12/18 06:00 Creatine Kinase 40 U/L (30-223) 02/12/18 06:00 Troponin I < 0.01 ng/mL (0.01-0.05) L 02/11/18 14:14 B-Natriuretic Peptide 486.0 pg/mL (5.0-100.0) H 02/19/18 05:00 Total Protein 6.6 gm/dL (6.0-8.3) 02/12/18 06:00 Albumin 3.6 gm/dL (3.7-5.3) L 02/12/18 06:00 Globulin 3.0 gm/dL 02/12/18 06:00 Albumin/Globulin Ratio 1.2 (1.0-1.8) 02/12/18 06:00 TSH 1.01 uIU/ml (0.34-5.60) 02/11/18 15:11 Urine Source MIDSTREAM 02/15/18 04:38 Urine Color YELLOW 02/15/18 04:38 Urine Clarity HAZY (CLEAR) 02/15/18 04:38 Urine pH 5.5 (4.6 - 8.0) 02/15/18 04:38 Ur Specific [place] 1.020 (1.005-1.030) 02/15/18 04:38 Urine Protein 100 mg/dL (NEGATIVE) H 02/15/18 04:38 Urine Glucose (UA) NEGATIVE mg/dL (NEGATIVE) 02/15/18 04:38 Urine Ketones TRACE mg/dL (NEGATIVE) 02/15/18 04:38 Urine Blood LARGE (NEGATIVE) H 02/15/18 04:38 Urine Nitrate NEGATIVE (NEGATIVE) 02/15/18 04:38 Urine Bilirubin NEGATIVE (NEGATIVE) 02/15/18 04:38 Urine Urobilinogen 0.2 E.U./dL (0.2 - 1.0) 02/15/18 04:38 Ur Leukocyte Esterase SMALL (NEGATIVE) H 02/15/18 04:38 Urine RBC 2-5 /hpf (0-5) 02/15/18 04:38 Urine WBC 6-10 /hpf (0-5) H 02/15/18 04:38 Ur Epithelial Cells MODERATE /lpf (FEW) 02/15/18 04:38 Urine Bacteria FEW /hpf (NONE SEEN) 02/15/18 04:38 Fine Granular Casts 0-2 /lpf (NONE SEEN) H 02/11/18 15:43 Urine Opiates Screen NEGATIVE (NEGATIVE) 02/11/18 15:43 Urine Methadone Screen NEGATIVE (NEGATIVE) 02/11/18 15:43 Ur Barbiturates Screen NEGATIVE (NEGATIVE) 02/11/18 15:43 Ur Tricyclics Screen NEGATIVE (NEGATIVE) 02/11/18 15:43 Ur Phencyclidine Scrn NEGATIVE (NEGATIVE) 09/09/18 15:43 Amphetamines Screen NEGATIVE (NEGATIVE) 02/11/18 15:43 U Methamphetamines Scrn NEGATIVE (NEGATIVE) 02/11/18 15:43 U Benzodiazepines Scrn POSITIVE (NEGATIVE) H 02/11/18 15:43 U Cocaine Metab Screen NEGATIVE (NEGATIVE) 02/11/18 15:43 U Cannabinoids Screen NEGATIVE (NEGATIVE) 02/11/18 15:43 - Physical Exam Vitals and I&O: Vital Signs Temp 98.4 F 02/19/18 04:00 Pulse 75 02/19/18 09:28 Resp 14 02/19/18 07:00 BP 133/80 02/19/18 09:29 Pulse Ox 100 02/19/18 07:00 Intake & Output 02/18/18 02/19/18 02/19/18 18:59 06:59 18:59 Intake Total 50 1189.583 Balance 50 1189.583 Weight (lbs) 63.503 kg 63.503 kg Intake: Intake, IV Amount 50 989.583 Meropenem 500 mg In 50 Sodium Chloride 0.9% 50 ml @ 50 mls/hr IV Q12H [facility] Rx#:[id number] Sodium Chloride 0.45% 1, 989.583 000 ml @ 125 mls/hr IV . Q8H [facility] Rx#:[id number] Oral 200 Other: # Voids 3 Stool Characteristics Soft Soft Weight Source Bedscale Estimated Active Medications: Current Medications Acetaminophen (Tylenol 650mg Supp) 650 mg RC Q4H PRN PRN Reason: FEVER >100, OR MILD PAIN Stop: 04/13/18 08:40 Albuterol/Ipratropium (Duoneb Neb) 3 ml HHN Q4HRT PRN PRN Reason: Shortness of Breath Stop: 04/13/18 08:40 Alprazolam (Xanax) 0.5 mg PO BID [facility]; Protocol Stop: 04/13/18 08:59 Last Admin: 02/19/18 09:29 Dose: 0.5 mg Carvedilol (Coreg) 6.25 mg PO BID [facility] Stop: 04/13/18 09:59 Last Admin: 02/19/18 09:28 Dose: 6.25 mg Clopidogrel Bisulfate (Plavix) 75 mg PO DAILY [facility] Stop: 04/13/18 09:59 Last Admin: 02/19/18 09:29 Dose: 75 mg Meropenem 500 mg/ Sodium (Chloride) 50 mls @ 50 mls/hr IV Q12H [facility] Stop: 04/19/18 14:59 Last Admin: 02/19/18 04:12 Dose: 50 mls/hr Sodium Chloride (Nacl 0.45%) 1,000 mls @ 125 mls/hr IV .Q8H [facility] Stop: 04/20/18 11:59 Ibuprofen (Motrin) 400 mg PO Q4H PRN PRN Reason: PAIN Stop: 04/13/18 08:40 Lactobacillus Rhamnosus (Culturelle 15b) 1 each PO DAILY [facility] Stop: 04/13/18 13:59 Last Admin: 02/19/18 09:29 Dose: 1 each Levothyroxine Sodium 0.1 mg/ (Levothyroxine Sodium 0.05 mg) 0.15 mg PO QDAC [facility] Stop: 04/13/18 09:59 Last Admin: 02/19/18 06:42 Dose: 0.15 mg Lorazepam (Ativan) 0.5 mg IM Q6HR PRN; Protocol PRN Reason: Anxiety Stop: 04/15/18 08:51 Last Admin: 02/18/18 06:27 Dose: 0.5 mg Megestrol Acetate (Megace) 200 mg PO DAILY [facility] Stop: 04/13/18 09:59 Last Admin: 02/19/18 09:28 Dose: 200 mg Miscellaneous (Vte Chemical Prophylaxis Screen/ Admission) 1 ea MC PRN PRN PRN Reason: PROTOCOL Stop: 04/13/18 11:55 Miscellaneous (Probiotic Screen) 1 ea PRN PRN PRN Reason: PROTOCOL Stop: 04/13/18 12:31 Miscellaneous (Clinical Monitoring) 1 ea MC DAILY PRN PRN Reason: RENAL Stop: 04/16/18 15:38 Multivitamins/Vitamin C (Theragran) 1 tab PO DAILY [facility] Stop: 04/13/18 09:59 Last Admin: 02/19/18 09:29 Dose: 1 tab Nitroglycerin (Nitrostat) 0.4 mg SL Q5MIN PRN PRN Reason: Chest Pain Quetiapine Fumarate (Seroquel) 50 mg PO TID [facility]; Protocol Stop: 04/13/18 08:59 Vitamin D (Vitamin D3) 2,000 iu PO DAILY [facility] Stop: 04/13/18 09:59 Last Admin: 02/19/18 09:29 Dose: 2,000 iu General: no acute distress, well developed, well nourished HEENT: atraumatic, normocephalic, PERRLA Neck: supple, no thyromegaly Cardiovascular: S1S2, regular Lungs: clear to auscultation bilaterally, clear to percussion Abdomen: soft, no tender, no distended Extremities: no cyanosis, no clubbing, no edema Neurological: awake, alert Skin: intact Infectious Disease Assmt/Plan - Problem List Patient Problems: All Active Problems Altered mental status (Acute) R41.82 Anemia (Acute) D64.9 Encephalopathy (Acute) G93.40 FALL WITH LEFT SHOULDER PAIN/CONFUSION (Acute) Facial injury (Acute) H/O fall (Acute) Z91.81 Renal insufficiency (Acute) rt parascapular bruising (Acute) - Assessment Assessment: 1. UTI. ESBL E coli 2. History of fall. 3. Dementia. 4. coronary artery disease.CABG 5. Thyroid disorder. 6. pacemaker placement. 7. CABG - Plan Plan: dc Doxycycline for 3 days. Nutritional Asmnt/Malnutr-PDOC - Dietary Evaluation Malnutrition Findings (Please click <Entered> for more info): Nutritional Asmnt/Malnutrition Start: 02/15/18 18: 13 Text: Status: Complete Freq: Protocol: Document 02/15/18 18:16 LCHENG (Rec: 02/15/18 18:28 LCHENG [email or web address]) Nutritional Asmnt/Malnutrition Patient General Information Nutritional Screening Moderate Risk Diagnosis CHF, UTI,sinus Fx Pertinent Medical Hx/Surgical Hx CAD, thyroid disorder, aortic valve replacement, pacemaker, CAD, CABG Subjective Information Pt seen resting in bed at time of visit. Per MEDICAL CLAIMS MANAGER, pt was not eating much, refusing to eat. Per nurse, pt is very confused, on restrains. Per EMR, PO intake 0-25%, refuse most of meals. MD ordered renal US per nurse note d/t blood in urine. Current Diet Order/ Nutrition Support [facility] soft chopped, cardiac Pertinent Medications lasix, culturelle, levothyroxine, megace, theragran, seroquel, vit D3 Pertinent Labs 02/15 K 3.4, BUN 47, Cr 1.3, glucose 124 Nutritional Hx/Data Height 1.6 m Height (Calculated Centimeters) 160.0 Current Weight (lbs) 66.224 kg Weight (Calculated Kilograms) 66.2 Weight (Calculated Grams) 89400.5 [place] Body Weight 115 Body Mass Index (BMI) 25.8 Weight Status Overweight GI Symptoms GI Symptoms None Last BM none Difficult in: None Skin Integrity/Comment: intact Current %PO Negligible < 25% Estimated Nutritional Goals BEE in Kcals: Using Current wt Calories/Kcals/Kg 23-27 Kcals Calculated 5846-3680 Protein: Using Current wt Protein g/k.8 Protein Calculated 52 Nutritional Problem 2. Problem Problem inadequate food intake Etiology confusion and poor cognition Signs/Symptoms: PO intake 0-25% 1. Problem Problem altered nutrition related labs Etiology electrolytes imbalance, possible renal function Signs/Symptoms: K 3.4, BUN 47, Cr 1.3 Malnutrition Alert Is there a minimum of two criteria No selected? Query Text:Check all the applicable criteria. A minimum of two criteria are recommended for diagnosis of either severe or non-severe malnutrition. Malnutrition Related to Morbid Obesity Malnutrition related to morbid obesity No Intervention/Recommendation Comments 1. Continue with current diet as ordered. Encourage oral intake and assist with meals as needed. 2. Monitor PO intake, wt, labs and skin integrity 3. F/U as moderate risk in 3-5 days, 02/18-02/20, PO check Expected Outcomes/Goals Expected Outcomes/Goals 1. PO intake to meet at least 75% of nutritional needs. 2. Wt stability, skin to remain intact, labs to approach WNL.
--- NOTE | 2018-02-19 16:05 | General Progress Note ---
Subjective - Review of Systems Events since last encounter: doing well refused iv antibiotics denies pain Objective - Results Result Diagrams: 02/18/18 11:01 02/19/18 05:00 Recent Labs: Laboratory Last Values WBC 14.8 Th/cmm (4.8-10.8) H 02/18/18 11:01 RBC 5.16 Mil/cmm (3.80-5.20) 02/18/18 11:01 Hgb 14.3 gm/dL (12-16) 02/18/18 11:01 Hct 43.8 % (41.0-60) 02/18/18 11:01 MCV 85.0 fl (81-100) 02/18/18 11:01 MCH 27.7 pg (27.0-31.0) 02/18/18 11:01 MCHC Differential 32.6 pg (28.0-36.0) 02/18/18 11:01 RDW 17.3 % (11.5-20.0) 02/18/18 11:01 Plt Count 193 Th/cmm (150-400) 02/18/18 11:01 MPV 10.0 fl 02/18/18 11:01 Neutrophils % 79.2 % (40.0-80.0) 02/18/18 11:01 Lymphocytes % 13.5 % (20.0-50.0) L 02/18/18 11:01 Monocytes % 6.5 % (2.0-10.0) 02/18/18 11:01 Eosinophils % 0.8 % (0.0-5.0) 02/18/18 11:01 Basophils % 0.0 % (0.0-2.0) 02/18/18 11:01 PT 10.8 SECONDS (9.5-11.5) 02/11/18 15:11 INR 1.04 (0.5-1.4) 02/11/18 15:11 PTT (Actin FS) 25.9 SECONDS (26.0-38.0) L 02/12/18 06:00 D-Dimer 2920 ng/mL (100-400) H 02/12/18 06:00 Sodium 149 mEq/L (136-145) H 02/19/18 05:00 Potassium 3.7 mEq/L (3.5-5.1) 02/19/18 05:00 Chloride 110 mEq/L (98-107) H 02/19/18 05:00 Carbon Dioxide 24.5 mEq/L (21.0-31.0) 02/19/18 05:00 Anion Gap 18.2 (7.0-16.0) H 02/19/18 05:00 BUN 104 mg/dL (7-25) H* 02/19/18 05:00 Creatinine 2.5 mg/dL (0.6-1.2) H 02/19/18 05:00 Est GFR ( Amer) TNP 02/19/18 05:00 Est GFR (Non-Af Amer) TNP 02/19/18 05:00 BUN/Creatinine Ratio 41.6 02/19/18 05:00 Glucose 137 mg/dL (70-105) H 02/19/18 05:00 POC Glucose 95 MG/DL (70 - 105) 02/11/18 21:11 Whole Bld Lactic Acid 1.16 mmol/L (0.60-1.99) 02/11/18 15:21 Calcium 10.5 mg/dL (8.6-10.3) H 02/19/18 05:00 Phosphorus 3.5 mg/dL (2.5-5.0) 02/11/18 15:11 Magnesium 2.3 mg/dL (1.9-2.7) 02/11/18 15:11 Total Bilirubin 0.8 mg/dL (0.3-1.0) 02/12/18 06:00 AST 18 U/L (13-39) 02/12/18 06:00 ALT 10 U/L (7-52) 02/12/18 06:00 Alkaline Phosphatase 66 U/L (34-104) 02/12/18 06:00 Creatine Kinase 40 U/L (30-223) 02/12/18 06:00 Troponin I < 0.01 ng/mL (0.01-0.05) L 02/11/18 14:14 B-Natriuretic Peptide 486.0 pg/mL (5.0-100.0) H 02/19/18 05:00 Total Protein 6.6 gm/dL (6.0-8.3) 02/12/18 06:00 Albumin 3.6 gm/dL (3.7-5.3) L 02/12/18 06:00 Globulin 3.0 gm/dL 02/12/18 06:00 Albumin/Globulin Ratio 1.2 (1.0-1.8) 02/12/18 06:00 TSH 1.01 uIU/ml (0.34-5.60) 02/11/18 15:11 Urine Source MIDSTREAM 02/15/18 04:38 Urine Color YELLOW 02/15/18 04:38 Urine Clarity HAZY (CLEAR) 02/15/18 04:38 Urine pH 5.5 (4.6 - 8.0) 02/15/18 04:38 Ur Specific [place] 1.020 (1.005-1.030) 02/15/18 04:38 Urine Protein 100 mg/dL (NEGATIVE) H 02/15/18 04:38 Urine Glucose (UA) NEGATIVE mg/dL (NEGATIVE) 02/15/18 04:38 Urine Ketones TRACE mg/dL (NEGATIVE) 02/15/18 04:38 Urine Blood LARGE (NEGATIVE) H 02/15/18 04:38 Urine Nitrate NEGATIVE (NEGATIVE) 02/15/18 04:38 Urine Bilirubin NEGATIVE (NEGATIVE) 02/15/18 04:38 Urine Urobilinogen 0.2 E.U./dL (0.2 - 1.0) 02/15/18 04:38 Ur Leukocyte Esterase SMALL (NEGATIVE) H 02/15/18 04:38 Urine RBC 2-5 /hpf (0-5) 02/15/18 04:38 Urine WBC 6-10 /hpf (0-5) H 02/15/18 04:38 Ur Epithelial Cells MODERATE /lpf (FEW) 02/15/18 04:38 Urine Bacteria FEW /hpf (NONE SEEN) 02/15/18 04:38 Fine Granular Casts 0-2 /lpf (NONE SEEN) H 02/11/18 15:43 Urine Opiates Screen NEGATIVE (NEGATIVE) 02/11/18 15:43 Urine Methadone Screen NEGATIVE (NEGATIVE) 02/11/18 15:43 Ur Barbiturates Screen NEGATIVE (NEGATIVE) 02/11/18 15:43 Ur Tricyclics Screen NEGATIVE (NEGATIVE) 02/11/18 15:43 Ur Phencyclidine Scrn NEGATIVE (NEGATIVE) 02/11/18 15:43 Amphetamines Screen NEGATIVE (NEGATIVE) 02/11/18 15:43 U Methamphetamines Scrn NEGATIVE (NEGATIVE) 02/11/18 15:43 U Benzodiazepines Scrn POSITIVE (NEGATIVE) H 02/11/18 15:43 U Cocaine Metab Screen NEGATIVE (NEGATIVE) 02/11/18 15:43 U Cannabinoids Screen NEGATIVE (NEGATIVE) 02/11/18 15:43 - Physical Exam Vitals and I&O: Vital Signs Temp 98.6 F 02/19/18 15:34 Pulse 76 02/19/18 15:34 Resp 18 02/19/18 15:34 BP 130/61 02/19/18 15:34 Pulse Ox 95 02/19/18 15:34 Intake & Output 02/18/18 02/19/18 02/19/18 18:59 06:59 18:59 Intake Total 50 1189.583 Balance 50 1189.583 Weight (lbs) 63.503 kg 63.503 kg Intake: Intake, IV Amount 50 989.583 Meropenem 500 mg In 50 Sodium Chloride 0.9% 50 ml @ 50 mls/hr IV Q12H [facility] Rx#:[id number] Sodium Chloride 0.45% 1, 989.583 000 ml @ 125 mls/hr IV . Q8H [facility] Rx#:[id number] Oral 200 Other: # Voids 3 Stool Characteristics Soft Soft Soft Weight Source Bedscale Estimated Active Medications: Current Medications Acetaminophen (Tylenol 650mg Supp) 650 mg RC Q4H PRN PRN Reason: FEVER >100, OR MILD PAIN Stop: 04/13/18 08:40 Albuterol/Ipratropium (Duoneb Neb) 3 ml HHN Q4HRT PRN PRN Reason: Shortness of Breath Stop: 04/13/18 08:40 Alprazolam (Xanax) 0.5 mg PO BID [facility]; Protocol Stop: 04/13/18 08:59 Last Admin: 02/19/18 09:29 Dose: 0.5 mg Carvedilol (Coreg) 6.25 mg PO BID [facility] Stop: 04/13/18 09:59 Last Admin: 02/19/18 09:28 Dose: 6.25 mg Clopidogrel Bisulfate (Plavix) 75 mg PO DAILY [facility] Stop: 04/13/18 09:59 Last Admin: 02/19/18 09:29 Dose: 75 mg Meropenem 500 mg/ Sodium (Chloride) 50 mls @ 50 mls/hr IV Q12H [facility] Stop: 04/19/18 14:59 Last Admin: 02/19/18 04:12 Dose: 50 mls/hr Sodium Chloride (Nacl 0.45%) 1,000 mls @ 125 mls/hr IV .Q8H [facility] Stop: 04/20/18 11:59 Ibuprofen (Motrin) 400 mg PO Q4H PRN PRN Reason: PAIN Stop: 04/13/18 08:40 Lactobacillus Rhamnosus (Culturelle 15b) 1 each PO DAILY [facility] Stop: 04/13/18 13:59 Last Admin: 02/19/18 09:29 Dose: 1 each Levothyroxine Sodium 0.1 mg/ (Levothyroxine Sodium 0.05 mg) 0.15 mg PO QDAC [facility] Stop: 04/13/18 09:59 Last Admin: 02/19/18 06:42 Dose: 0.15 mg Lorazepam (Ativan) 0.5 mg IM Q6HR PRN; Protocol PRN Reason: Anxiety Stop: 04/15/18 08:51 Last Admin: 02/18/18 06:27 Dose: 0.5 mg Megestrol Acetate (Megace) 200 mg PO DAILY [facility] Stop: 04/13/18 09:59 Last Admin: 02/19/18 09:28 Dose: 200 mg Miscellaneous (Vte Chemical Prophylaxis Screen/ Admission) 1 ea PRN PRN PRN Reason: PROTOCOL Stop: 04/13/18 11:55 Miscellaneous (Probiotic Screen) 1 ea PRN PRN PRN Reason: PROTOCOL Stop: 04/13/18 12:31 Miscellaneous (Clinical Monitoring) 1 ea MC DAILY PRN PRN Reason: RENAL Stop: 04/16/18 15:38 Multivitamins/Vitamin C (Theragran) 1 tab PO DAILY [facility] Stop: 04/13/18 09:59 Last Admin: 02/19/18 09:29 Dose: 1 tab Nitroglycerin (Nitrostat) 0.4 mg SL Q5MIN PRN PRN Reason: Chest Pain Quetiapine Fumarate (Seroquel) 50 mg PO TID [facility]; Protocol Stop: 04/13/18 08:59 Vitamin D (Vitamin D3) 2,000 iu PO DAILY [facility] Stop: 04/13/18 09:59 Last Admin: 02/19/18 09:29 Dose: 2,000 iu General: No acute distress HEENT: Atraumatic, PERRLA Neck: Supple, JVD Cardiovascular: Regular rate, Normal S1 Lungs: Clear to auscultation Assessment/Plan - Problem List Patient Problems: All Active Problems Altered mental status (Acute) R41.82 Anemia (Acute) D64.9 Encephalopathy (Acute) G93.40 FALL WITH LEFT SHOULDER PAIN/CONFUSION (Acute) Facial injury (Acute) H/O fall (Acute) Z91.81 Renal insufficiency (Acute) rt parascapular bruising (Acute) - Plan Plan: as per order sheet Nutritional Asmnt/Malnutr-PDOC - Dietary Evaluation Malnutrition Findings (Please click <Entered> for more info): Nutritional Asmnt/Malnutrition Start: 02/15/18 18: 13 Text: Status: Complete Freq: Protocol: Document 02/15/18 18:16 LCHENG (Rec: 02/15/18 18:28 LCHENG [email or web address]) Nutritional Asmnt/Malnutrition Patient General Information Nutritional Screening Moderate Risk Diagnosis CHF, UTI,sinus Fx Pertinent Medical Hx/Surgical Hx CAD, thyroid disorder, aortic valve replacement, pacemaker, CAD, CABG Subjective Information Pt seen resting in bed at time of visit. Per NURSING SERVICE ADMINISTRATOR, pt was not eating much, refusing to eat. Per nurse, pt is very confused, on restrains. Per EMR, PO intake 0-25%, refuse most of meals. MD ordered renal US per nurse note d/t blood in urine. Current Diet Order/ Nutrition Support mech soft chopped, cardiac Pertinent Medications lasix, culturelle, levothyroxine, megace, theragran, seroquel, vit D3 Pertinent Labs 02/15 K 3.4, BUN 47, Cr 1.3, glucose 124 Nutritional Hx/Data Height 1.6 m Height (Calculated Centimeters) 160.0 Current Weight (lbs) 66.224 kg Weight (Calculated Kilograms) 66.2 Weight (Calculated Grams) 85265.5 [place] Body Weight 115 Body Mass Index (BMI) 25.8 Weight Status Overweight GI Symptoms GI Symptoms None Last BM none Difficult in: None Skin Integrity/Comment: intact Current %PO Negligible < 25% Estimated Nutritional Goals BEE in Kcals: Using Current wt Calories/Kcals/Kg 23-27 Kcals Calculated 4809-8500 Protein: Using Current wt Protein g/k.8 Protein Calculated 52 Nutritional Problem 2. Problem Problem inadequate food intake Etiology confusion and poor cognition Signs/Symptoms: PO intake 0-25% 1. Problem Problem altered nutrition related labs Etiology electrolytes imbalance, possible renal function Signs/Symptoms: K 3.4, BUN 47, Cr 1.3 Malnutrition Alert Is there a minimum of two criteria No selected? Query Text:Check all the applicable criteria. A minimum of two criteria are recommended for diagnosis of either severe or non-severe malnutrition. Malnutrition Related to Morbid Obesity Malnutrition related to morbid obesity No Intervention/Recommendation Comments 1. Continue with current diet as ordered. Encourage oral intake and assist with meals as needed. 2. Monitor PO intake, wt, labs and skin integrity 3. F/U as moderate risk in 3-5 days, 02/18-02/20, PO check Expected Outcomes/Goals Expected Outcomes/Goals 1. PO intake to meet at least 75% of nutritional needs. 2. Wt stability, skin to remain intact, labs to approach WNL.
--- NOTE | 2018-02-19 20:59 | Progress Notes ---
DATE: 02/19/2018 Case was discussed with staff of the patient, reviewed records. The patient continues to be unpredictable, impulsive, at times talking to herself. Continues to have poor insight. Continues to be unable to make safe plan for self-care, refusing IV antibiotic. The patient may needs to go to [facility] when medically cleared, if she is still talking to herself. Meanwhile, I will follow up with the patient. Thank you very much for allowing me to participate in the care of this most interesting lady. JOB# [id number]
[2018-02-20] MEDS: Meropenem 500 MG in Sodium Chloride 0.9% 50 ML IV SCH ×2 (02:14→14:13)
[2018-02-20] MEDS: Sodium Chloride 0.45% 1,000 ML IV SCH ×3 (07:52→16:54)
[2018-02-20] MEDS: Vitamin D3 2,000 IU SGL PO SCH (09:33)
[2018-02-20] MEDS: Lactobacillus Rhamnosus GG 15 Billion CFU CAP.SPRINK PO SCH (09:34)
[2018-02-20] MEDS: Multivitamin Tab PO SCH (09:34)
--- NOTE | 2018-02-20 13:23 | Internal Medicine Prog Note ---
Internal Medicine Subjective - Subjective Service Date: 02/20/18 Patient is:: awake, confused Per staff patient has:: tolerating meds Internal Medicine Objective - Results Result Diagrams: 02/18/18 11:01 02/19/18 05:00 Recent Labs: Laboratory Last Values WBC 14.8 Th/cmm (4.8-10.8) H 02/18/18 11:01 RBC 5.16 Mil/cmm (3.80-5.20) 02/18/18 11:01 Hgb 14.3 gm/dL (12-16) 02/18/18 11:01 Hct 43.8 % (41.0-60) 02/18/18 11:01 MCV 85.0 fl (81-100) 02/18/18 11:01 MCH 27.7 pg (27.0-31.0) 02/18/18 11:01 MCHC Differential 32.6 pg (28.0-36.0) 02/18/18 11:01 RDW 17.3 % (11.5-20.0) 02/18/18 11:01 Plt Count 193 Th/cmm (150-400) 02/18/18 11:01 MPV 10.0 fl 02/18/18 11:01 Neutrophils % 79.2 % (40.0-80.0) 02/18/18 11:01 Lymphocytes % 13.5 % (20.0-50.0) L 02/18/18 11:01 Monocytes % 6.5 % (2.0-10.0) 02/18/18 11:01 Eosinophils % 0.8 % (0.0-5.0) 02/18/18 11:01 Basophils % 0.0 % (0.0-2.0) 02/18/18 11:01 PT 10.8 SECONDS (9.5-11.5) 02/11/18 15:11 INR 1.04 (0.5-1.4) 02/11/18 15:11 PTT (Actin FS) 25.9 SECONDS (26.0-38.0) L 02/12/18 06:00 D-Dimer 2920 ng/mL (100-400) H 02/12/18 06:00 Sodium 149 mEq/L (136-145) H 02/19/18 05:00 Potassium 3.7 mEq/L (3.5-5.1) 02/19/18 05:00 Chloride 110 mEq/L (98-107) H 02/19/18 05:00 Carbon Dioxide 24.5 mEq/L (21.0-31.0) 02/19/18 05:00 Anion Gap 18.2 (7.0-16.0) H 02/19/18 05:00 BUN 104 mg/dL (7-25) H* 02/19/18 05:00 Creatinine 2.5 mg/dL (0.6-1.2) H 02/19/18 05:00 Est GFR ( Amer) TNP 02/19/18 05:00 Est GFR (Non-Af Amer) TNP 02/19/18 05:00 BUN/Creatinine Ratio 41.6 02/19/18 05:00 Glucose 137 mg/dL (70-105) H 02/19/18 05:00 POC Glucose 95 MG/DL (70 - 105) 02/11/18 21:11 Whole Bld Lactic Acid 1.16 mmol/L (0.60-1.99) 02/11/18 15:21 Calcium 10.5 mg/dL (8.6-10.3) H 02/19/18 05:00 Phosphorus 3.5 mg/dL (2.5-5.0) 02/11/18 15:11 Magnesium 2.3 mg/dL (1.9-2.7) 02/11/18 15:11 Total Bilirubin 0.8 mg/dL (0.3-1.0) 02/12/18 06:00 AST 18 U/L (13-39) 02/12/18 06:00 ALT 10 U/L (7-52) 02/12/18 06:00 Alkaline Phosphatase 66 U/L (34-104) 02/12/18 06:00 Creatine Kinase 40 U/L (30-223) 02/12/18 06:00 Troponin I < 0.01 ng/mL (0.01-0.05) L 02/11/18 14:14 B-Natriuretic Peptide 486.0 pg/mL (5.0-100.0) H 02/19/18 05:00 Total Protein 6.6 gm/dL (6.0-8.3) 02/12/18 06:00 Albumin 3.6 gm/dL (3.7-5.3) L 02/12/18 06:00 Globulin 3.0 gm/dL 02/12/18 06:00 Albumin/Globulin Ratio 1.2 (1.0-1.8) 02/12/18 06:00 TSH 1.01 uIU/ml (0.34-5.60) 02/11/18 15:11 Urine Source MIDSTREAM 02/15/18 04:38 Urine Color YELLOW 02/15/18 04:38 Urine Clarity HAZY (CLEAR) 02/15/18 04:38 Urine pH 5.5 (4.6 - 8.0) 02/15/18 04:38 Ur Specific [place] 1.020 (1.005-1.030) 02/15/18 04:38 Urine Protein 100 mg/dL (NEGATIVE) H 02/15/18 04:38 Urine Glucose (UA) NEGATIVE mg/dL (NEGATIVE) 02/15/18 04:38 Urine Ketones TRACE mg/dL (NEGATIVE) 02/15/18 04:38 Urine Blood LARGE (NEGATIVE) H 02/15/18 04:38 Urine Nitrate NEGATIVE (NEGATIVE) 02/15/18 04:38 Urine Bilirubin NEGATIVE (NEGATIVE) 02/15/18 04:38 Urine Urobilinogen 0.2 E.U./dL (0.2 - 1.0) 02/15/18 04:38 Ur Leukocyte Esterase SMALL (NEGATIVE) H 02/15/18 04:38 Urine RBC 2-5 /hpf (0-5) 02/15/18 04:38 Urine WBC 6-10 /hpf (0-5) H 02/15/18 04:38 Ur Epithelial Cells MODERATE /lpf (FEW) 02/15/18 04:38 Urine Bacteria FEW /hpf (NONE SEEN) 02/15/18 04:38 Fine Granular Casts 0-2 /lpf (NONE SEEN) H 02/11/18 15:43 Urine Opiates Screen NEGATIVE (NEGATIVE) 02/11/18 15:43 Urine Methadone Screen NEGATIVE (NEGATIVE) 02/11/18 15:43 Ur Barbiturates Screen NEGATIVE (NEGATIVE) 02/11/18 15:43 Ur Tricyclics Screen NEGATIVE (NEGATIVE) 02/11/18 15:43 Ur Phencyclidine Scrn NEGATIVE (NEGATIVE) 02/11/18 15:43 Amphetamines Screen NEGATIVE (NEGATIVE) 02/11/18 15:43 U Methamphetamines Scrn NEGATIVE (NEGATIVE) 02/11/18 15:43 U Benzodiazepines Scrn POSITIVE (NEGATIVE) H 02/11/18 15:43 U Cocaine Metab Screen NEGATIVE (NEGATIVE) 02/11/18 15:43 U Cannabinoids Screen NEGATIVE (NEGATIVE) 02/11/18 15:43 - Physical Exam Vitals and I&O: Vital Signs Temp 97.4 F 02/20/18 04:07 Pulse 74 02/20/18 09:34 Resp 18 02/20/18 07:18 BP 141/54 02/20/18 09:34 Pulse Ox 98 02/20/18 07:18 Intake & Output 02/19/18 02/20/18 02/20/18 18:59 06:59 18:59 Intake Total 550 1000 Balance 550 1000 Weight (lbs) 140 lb Intake: Intake, IV Amount 50 1000 Meropenem 500 mg In 50 Sodium Chloride 0.9% 50 ml @ 50 mls/hr IV Q12H [facility] Rx#:[id number] Sodium Chloride 0.45% 1, 1000 000 ml @ 125 mls/hr IV . Q8H [facility] Rx#:[id number] Oral 500 Other: # Voids 6 Stool Characteristics Soft Weight Source Estimated Active Medications: Current Medications Acetaminophen (Tylenol 650mg Supp) 650 mg RC Q4H PRN PRN Reason: FEVER >100, OR MILD PAIN Stop: 04/13/18 08:40 Albuterol/Ipratropium (Duoneb Neb) 3 ml HHN Q4HRT PRN PRN Reason: Shortness of Breath Stop: 04/13/18 08:40 Alprazolam (Xanax) 0.5 mg PO BID [facility]; Protocol Stop: 04/13/18 08:59 Last Admin: 02/20/18 09:33 Dose: 0.5 mg Carvedilol (Coreg) 6.25 mg PO BID [facility] Stop: 04/13/18 09:59 Last Admin: 02/20/18 09:34 Dose: 6.25 mg Clopidogrel Bisulfate (Plavix) 75 mg PO DAILY [facility] Stop: 04/13/18 09:59 Last Admin: 02/20/18 09:34 Dose: 75 mg Meropenem 500 mg/ Sodium (Chloride) 50 mls @ 50 mls/hr IV Q12H [facility] Stop: 04/19/18 14:59 Last Admin: 02/20/18 02:14 Dose: 50 mls/hr Sodium Chloride (Nacl 0.45%) 1,000 mls @ 125 mls/hr IV .Q8H [facility] Stop: 04/20/18 11:59 Last Admin: 02/20/18 07:52 Dose: 125 mls/hr Ibuprofen (Motrin) 400 mg PO Q4H PRN PRN Reason: PAIN Stop: 04/13/18 08:40 Lactobacillus Rhamnosus (Culturelle 15b) 1 each PO DAILY [facility] Stop: 04/13/18 13:59 Last Admin: 02/20/18 09:34 Dose: 1 each Levothyroxine Sodium 0.1 mg/ (Levothyroxine Sodium 0.05 mg) 0.15 mg PO QDAC [facility] Stop: 04/13/18 09:59 Last Admin: 02/20/18 11:44 Dose: Not Given Lorazepam (Ativan) 0.5 mg IM Q6HR PRN; Protocol PRN Reason: Anxiety Stop: 04/15/18 08:51 Last Admin: 02/20/18 07:53 Dose: 0.5 mg Megestrol Acetate (Megace) 200 mg PO DAILY [facility] Stop: 04/13/18 09:59 Last Admin: 02/20/18 09:34 Dose: 200 mg Miscellaneous (Vte Chemical Prophylaxis Screen/ Admission) 1 ea MC PRN PRN PRN Reason: PROTOCOL Stop: 04/13/18 11:55 Miscellaneous (Probiotic Screen) 1 ea MC PRN PRN PRN Reason: PROTOCOL Stop: 04/13/18 12:31 Miscellaneous (Clinical Monitoring) 1 ea MC DAILY PRN PRN Reason: RENAL Stop: 04/16/18 15:38 Multivitamins/Vitamin C (Theragran) 1 tab PO DAILY [facility] Stop: 04/13/18 09:59 Last Admin: 02/20/18 09:34 Dose: 1 tab Nitroglycerin (Nitrostat) 0.4 mg SL Q5MIN PRN PRN Reason: Chest Pain Quetiapine Fumarate (Seroquel) 50 mg PO TID [facility]; Protocol Stop: 04/13/18 08:59 Last Admin: 02/20/18 09:33 Dose: 50 mg Vitamin D (Vitamin D3) 2,000 iu PO DAILY [facility] Stop: 04/13/18 09:59 Last Admin: 02/20/18 09:33 Dose: 2,000 iu General: weak, alert HEENT: NC/AT, PERRLA Neck: Supple Cardiovascular: RRR, without murmur Abdomen: soft Extremities: excoriation Neurological: alert, unable to follow command Internal Medicine Assmt/Plan - Assessment Assessment: altered mental status encephalopathy hx fall facial injury acute renal insufficiency anemia right parascapular bruising - Plan Plan: fall precautions psych follow up continue current plan of care Nutritional Asmnt/Malnutr-PDOC - Dietary Evaluation Malnutrition Findings (Please click <Entered> for more info): Nutritional Asmnt/Malnutrition Start: 02/15/18 18: 13 Text: Status: Complete Freq: Protocol: Document 02/15/18 18:16 HENG (Rec: 02/15/18 18:28 [email or web address]) Nutritional Asmnt/Malnutrition Patient General Information Nutritional Screening Moderate Risk Diagnosis CHF, UTI,sinus Fx Pertinent Medical Hx/Surgical Hx CAD, thyroid disorder, aortic valve replacement, pacemaker, CAD, CABG Subjective Information Pt seen resting in bed at time of visit. Per TEMPERING KILN TENDER, pt was not eating much, refusing to eat. Per nurse, pt is very confused, on restrains. Per EMR, PO intake 0-25%, refuse most of meals. ordered renal US per nurse note d/t blood in urine. Current Diet Order/ Nutrition Support mech soft chopped, cardiac Pertinent Medications lasix, culturelle, levothyroxine, megace, theragran, seroquel, vit D3 Pertinent Labs 02/15 K 3.4, BUN 47, Cr 1.3, glucose 124 Nutritional Hx/Data Height 5 ft 3 in Height (Calculated Centimeters) 160.0 Current Weight (lbs) 146 lb Weight (Calculated Kilograms) 66.2 Weight (Calculated Grams) 77233.5 [place] Body Weight 115 Body Mass Index (BMI) 25.8 Weight Status Overweight GI Symptoms GI Symptoms None Last BM none Difficult in: None Skin Integrity/Comment: intact Current %PO Negligible < 25% Estimated Nutritional Goals BEE in Kcals: Using Current wt Calories/Kcals/Kg 23-27 Kcals Calculated 3527-7289 Protein: Using Current wt Protein g/k.8 Protein Calculated 52 Nutritional Problem 2. Problem Problem inadequate food intake Etiology confusion and poor cognition Signs/Symptoms: PO intake 0-25% 1. Problem Problem altered nutrition related labs Etiology electrolytes imbalance, possible renal function Signs/Symptoms: K 3.4, BUN 47, Cr 1.3 Malnutrition Alert Is there a minimum of two criteria No selected? Query Text:Check all the applicable criteria. A minimum of two criteria are recommended for diagnosis of either severe or non-severe malnutrition. Malnutrition Related to Morbid Obesity Malnutrition related to morbid obesity No Intervention/Recommendation Comments 1. Continue with current diet as ordered. Encourage oral intake and assist with meals as needed. 2. Monitor PO intake, wt, labs and skin integrity 3. F/U as moderate risk in 3-5 days, 02/18-02/20, PO check Expected Outcomes/Goals Expected Outcomes/Goals 1. PO intake to meet at least 75% of nutritional needs. 2. Wt stability, skin to remain intact, labs to approach WNL.
[2018-02-20 15:33] LABS: HEMATOCRIT 40.8 % (41.0-60); HEMOGLOBIN 13.8 gm/dL (12-16); MEAN CORPUSCULAR HEMOGLOBIN 28.4 pg (27.0-31.0); MEAN CORPUSCULAR HGB CONC 33.8 pg (28.0-36.0); MEAN PLATELET VOLUME 10.7 fl; PLATELET COUNT 169 Th/cmm (150-400); RED BLOOD COUNT 4.86 Mil/cmm (3.80-5.20); RED CELL DISTRIBUTION WIDTH 17.2 % (11.5-20.0)
[2018-02-20 15:37] LABS: WHITE BLOOD COUNT 16.4 Th/cmm (4.8-10.8)
[2018-02-20 15:55] LABS: BAND NEUTROPHILE 3 % (0-10); LYMPHOCYTE 16 % (20-50); MONOCYTE 3 % (2-10); NEUTROPHILS 78 % (40-80)
[2018-02-20 16:14] LABS: ALBUMIN 3.7 gm/dL (3.7-5.3); ALKALINE PHOSPHATASE 76 U/L (34-104); ANION GAP 17.6 (7.0-16.0); BILIRUBIN,TOTAL 1.1 mg/dL (0.3-1.0); CALCIUM SERUM 9.6 mg/dL (8.6-10.3); CARBON DIOXIDE 19.6 mEq/L (21.0-31.0); CHLORIDE 111 mEq/L (98-107); CREATININE - SERUM 1.8 mg/dL (0.6-1.2); GLUCOSE 106 mg/dL (70-105); POTASSIUM SERUM 3.2 mEq/L (3.5-5.1); SGOT 33 U/L (13-39); SGPT/ALT 18 U/L (7-52); SODIUM SERUM 145 mEq/L (136-145); TOTAL PROTEIN,SERUM 7.3 gm/dL (6.0-8.3)
[2018-02-20 16:33] LABS: BUN - UREA NITROGEN 114 mg/dL (7-25)
--- NOTE | 2018-02-20 17:36 | Progress Notes ---
DATE: 02/20/2018 FOLLOWUP CONSULT NOTE Case was discussed with staff of the patient, reviewed records. The patient continues to be talking to herself. Continues to be unpredictable, impulsive, very agitated, irritable. I did increase her Seroquel dose yesterday to 50 mg 3 times a day with no side effects, no sedation, no nausea, no extrapyramidal symptoms. We will continue to watch the patient and adjust medication as needed. Thank you very much for allowing me to participate in the care of this most interesting lady. JOB# [id number]
[2018-02-20] MEDS: Potassium Chloride 20 mEq ER Tab PO ONE (21:09)
[2018-02-21] MEDS: Potassium Chloride 20 mEq ER Tab PO ONE (03:54)
[2018-02-21] MEDS: Meropenem 500 MG in Sodium Chloride 0.9% 50 ML IV SCH (03:55)
[2018-02-21 06:50] LABS: HEMATOCRIT 41.6 % (41.0-60); HEMOGLOBIN 14.1 gm/dL (12-16); MEAN CELL VOLUME 84.2 fl (81-100); MEAN CORPUSCULAR HEMOGLOBIN 28.5 pg (27.0-31.0); MEAN CORPUSCULAR HGB CONC 33.9 pg (28.0-36.0); MEAN PLATELET VOLUME 10.1 fl; PLATELET COUNT 150 Th/cmm (150-400); RED BLOOD COUNT 4.94 Mil/cmm (3.80-5.20)
[2018-02-21 06:52] LABS: WHITE BLOOD COUNT 18.4 Th/cmm (4.8-10.8)
[2018-02-21 06:56] LABS: ALBUMIN 3.7 gm/dL (3.7-5.3); ALKALINE PHOSPHATASE 80 U/L (34-104); BILIRUBIN,TOTAL 1.2 mg/dL (0.3-1.0); CALCIUM SERUM 9.9 mg/dL (8.6-10.3); CARBON DIOXIDE 21.9 mEq/L (21.0-31.0); CHLORIDE 111 mEq/L (98-107); CREATININE - SERUM 1.6 mg/dL (0.6-1.2); GLUCOSE 98 mg/dL (70-105); MAGNESIUM 2.8 mg/dL (1.9-2.7); POTASSIUM SERUM 3.9 mEq/L (3.5-5.1); SGOT 36 U/L (13-39); SGPT/ALT 17 U/L (7-52); SODIUM SERUM 144 mEq/L (136-145); TOTAL PROTEIN,SERUM 7.5 gm/dL (6.0-8.3)
[2018-02-21 07:28] LABS: BUN - UREA NITROGEN 103 mg/dL (7-25)
[2018-02-21 07:42] LABS: BAND NEUTROPHILE 1 % (0-10); BASOPHIL 0 % (0-3); EOSINOPHIL 2 % (0-5); LYMPHOCYTE 15 % (20-50); MONOCYTE 5 % (2-10); NEUTROPHILS 77 % (40-80); PLATELET ESTIMATE ADEQUATE (NORMAL)
[2018-02-21] MEDS ORDERED: Sodium Chloride 0.45% 1,000 ML IV SCH ×2 (07:45)
[2018-02-21] MEDS: Vitamin D3 2,000 IU SGL PO SCH (09:50)
[2018-02-21] MEDS: Multivitamin Tab PO SCH (09:50)
[2018-02-21] MEDS: Lactobacillus Rhamnosus GG 15 Billion CFU CAP.SPRINK PO SCH (09:50)
--- NOTE | 2018-02-21 13:51 | Infectious Disease Prog Note ---
Infectious Disease Subjective - Review of Systems Service Date: 02/21/18 Subjective: Doing well, no fever. Refusing IV antibiotics. Infectious Disease Objective - Results Result Diagrams: 02/23/18 05:40 02/23/18 05:40 Recent Labs: Laboratory Last Values WBC 18.4 Th/cmm (4.8-10.8) H 02/21/18 06:20 RBC 4.94 Mil/cmm (3.80-5.20) 02/21/18 06:20 Hgb 14.1 gm/dL (12-16) 02/21/18 06:20 Hct 41.6 % (41.0-60) 02/21/18 06:20 MCV 84.2 fl (81-100) 02/21/18 06:20 MCH 28.5 pg (27.0-31.0) 02/21/18 06:20 MCHC Differential 33.9 pg (28.0-36.0) 02/21/18 06:20 RDW 17.0 % (11.5-20.0) 02/21/18 06:20 Plt Count 150 Th/cmm (150-400) 02/21/18 06:20 MPV 10.1 fl 02/21/18 06:20 Add Manual Diff YES 02/21/18 06:20 Neutrophils % 79.2 % (40.0-80.0) 02/18/18 11:01 Band Neutrophils % 1 % (0-10) 02/21/18 06:20 Lymphocytes % 13.5 % (20.0-50.0) L 02/18/18 11:01 Monocytes % 6.5 % (2.0-10.0) 02/18/18 11:01 Eosinophils % 0.8 % (0.0-5.0) 02/18/18 11:01 Basophils % 0.0 % (0.0-2.0) 02/18/18 11:01 Neutrophils (Manual) 77 % (40-80) 02/21/18 06:20 Lymphocytes 15 % (20-50) L 02/21/18 06:20 Monocytes 5 % (2-10) 02/21/18 06:20 Eosinophils 2 % (0-5) 02/21/18 06:20 Basophils 0 % (0-3) 02/21/18 06:20 Platelet Estimate ADEQUATE (NORMAL) 02/21/18 06:20 PT 10.8 SECONDS (9.5-11.5) 02/11/18 15:11 INR 1.04 (0.5-1.4) 02/11/18 15:11 PTT (Actin FS) 25.9 SECONDS (26.0-38.0) L 02/12/18 06:00 D-Dimer 2920 ng/mL (100-400) H 02/12/18 06:00 Sodium 144 mEq/L (136-145) 02/21/18 06:20 Potassium 3.9 mEq/L (3.5-5.1) 02/21/18 06:20 Chloride 111 mEq/L (98-107) H 02/21/18 06:20 Carbon Dioxide 21.9 mEq/L (21.0-31.0) 02/21/18 06:20 Anion Gap 15.0 (7.0-16.0) 02/21/18 06:20 BUN 103 mg/dL (7-25) H* 02/21/18 06:20 Creatinine 1.6 mg/dL (0.6-1.2) H 02/21/18 06:20 Est GFR ( Amer) TNP 02/21/18 06:20 Est GFR (Non-Af Amer) TNP 02/21/18 06:20 BUN/Creatinine Ratio 64.4 02/21/18 06:20 Glucose 98 mg/dL (70-105) 02/21/18 06:20 POC Glucose 95 MG/DL (70 - 105) 02/11/18 21:11 Whole Bld Lactic Acid 1.16 mmol/L (0.60-1.99) 02/11/18 15:21 Calcium 9.9 mg/dL (8.6-10.3) 02/21/18 06:20 Phosphorus 3.5 mg/dL (2.5-5.0) 02/11/18 15:11 Magnesium 2.8 mg/dL (1.9-2.7) H 02/21/18 06:20 Total Bilirubin 1.2 mg/dL (0.3-1.0) H 02/21/18 06:20 AST 36 U/L (13-39) 02/21/18 06:20 ALT 17 U/L (7-52) 02/21/18 06:20 Alkaline Phosphatase 80 U/L (34-104) 02/21/18 06:20 Creatine Kinase 40 U/L (30-223) 02/12/18 06:00 Troponin I < 0.01 ng/mL (0.01-0.05) L 02/11/18 14:14 B-Natriuretic Peptide 317.0 pg/mL (5.0-100.0) H 02/21/18 06:20 Total Protein 7.5 gm/dL (6.0-8.3) 02/21/18 06:20 Albumin 3.7 gm/dL (3.7-5.3) 02/21/18 06:20 Globulin 3.8 gm/dL 02/21/18 06:20 Albumin/Globulin Ratio 1.0 (1.0-1.8) 02/21/18 06:20 TSH 1.01 uIU/ml (0.34-5.60) 02/11/18 15:11 Urine Source MIDSTREAM 02/15/18 04:38 Urine Color YELLOW 02/15/18 04:38 Urine Clarity HAZY (CLEAR) 02/15/18 04:38 Urine pH 5.5 (4.6 - 8.0) 02/15/18 04:38 Ur Specific [place] 1.020 (1.005-1.030) 02/15/18 04:38 Urine Protein 100 mg/dL (NEGATIVE) H 02/15/18 04:38 Urine Glucose (UA) NEGATIVE mg/dL (NEGATIVE) 02/15/18 04:38 Urine Ketones TRACE mg/dL (NEGATIVE) 02/15/18 04:38 Urine Blood LARGE (NEGATIVE) H 02/15/18 04:38 Urine Nitrate NEGATIVE (NEGATIVE) 02/15/18 04:38 Urine Bilirubin NEGATIVE (NEGATIVE) 02/15/18 04:38 Urine Urobilinogen 0.2 E.U./dL (0.2 - 1.0) 02/15/18 04:38 Ur Leukocyte Esterase SMALL (NEGATIVE) H 02/15/18 04:38 Urine RBC 2-5 /hpf (0-5) 02/15/18 04:38 Urine WBC 6-10 /hpf (0-5) H 02/15/18 04:38 Ur Epithelial Cells MODERATE /lpf (FEW) 02/15/18 04:38 Urine Bacteria FEW /hpf (NONE SEEN) 02/15/18 04:38 Fine Granular Casts 0-2 /lpf (NONE SEEN) H 02/11/18 15:43 Urine Opiates Screen NEGATIVE (NEGATIVE) 02/11/18 15:43 Urine Methadone Screen NEGATIVE (NEGATIVE) 02/11/18 15:43 Ur Barbiturates Screen NEGATIVE (NEGATIVE) 02/11/18 15:43 Ur Tricyclics Screen NEGATIVE (NEGATIVE) 02/11/18 15:43 Ur Phencyclidine Scrn NEGATIVE (NEGATIVE) 02/11/18 15:43 Amphetamines Screen NEGATIVE (NEGATIVE) 02/11/18 15:43 U Methamphetamines Scrn NEGATIVE (NEGATIVE) 02/11/18 15:43 U Benzodiazepines Scrn POSITIVE (NEGATIVE) H 02/11/18 15:43 U Cocaine Metab Screen NEGATIVE (NEGATIVE) 02/11/18 15:43 U Cannabinoids Screen NEGATIVE (NEGATIVE) 02/11/18 15:43 - Physical Exam Vitals and I&O: Vital Signs Temp 96.5 F 02/21/18 06:00 Pulse 77 02/21/18 07:13 Resp 18 02/21/18 07:13 BP 146/69 02/21/18 06:00 Pulse Ox 96 02/21/18 07:13 Intake & Output 02/20/18 02/21/18 02/21/18 18:59 06:59 18:59 Intake Total 1179.167 50 Output Total 950 Balance 1179.167 -900 Weight (lbs) 65.136 kg Intake: Intake, IV Amount 1179.167 50 Meropenem 500 mg In 50 50 Sodium Chloride 0.9% 50 ml @ 50 mls/hr IV Q12H [facility] Rx#:[id number] Sodium Chloride 0.45% 1, 1129.167 000 ml @ 125 mls/hr IV . Q8H [facility] Rx#:[id number] Output: Urine 950 Other: Weight Source Bedscale Active Medications: Current Medications Acetaminophen (Tylenol 650mg Supp) 650 mg RC Q4H PRN PRN Reason: FEVER >100, OR MILD PAIN Stop: 04/13/18 08:40 Albuterol/Ipratropium (Duoneb Neb) 3 ml HHN Q4HRT PRN PRN Reason: Shortness of Breath Stop: 04/13/18 08:40 Alprazolam (Xanax) 0.5 mg PO BID [facility]; Protocol Stop: 04/13/18 08:59 Last Admin: 02/21/18 09:50 Dose: Not Given Carvedilol (Coreg) 6.25 mg PO BID [facility] Stop: 04/13/18 09:59 Last Admin: 02/21/18 09:35 Dose: Not Given Clopidogrel Bisulfate (Plavix) 75 mg PO DAILY [facility] Stop: 04/13/18 09:59 Last Admin: 02/21/18 09:50 Dose: Not Given Lactobacillus Rhamnosus (Culturelle 15b) 1 each PO DAILY [facility] Stop: 04/13/18 13:59 Last Admin: 02/21/18 09:50 Dose: Not Given Levothyroxine Sodium 0.1 mg/ (Levothyroxine Sodium 0.05 mg) 0.15 mg PO QDAC [facility] Stop: 04/13/18 09:59 Last Admin: 02/21/18 07:55 Dose: Not Given Lorazepam (Ativan) 0.5 mg IM Q6HR PRN; Protocol PRN Reason: Anxiety Stop: 04/15/18 08:51 Last Admin: 02/21/18 09:03 Dose: 0.5 mg Megestrol Acetate (Megace) 200 mg PO DAILY [facility] Stop: 04/13/18 09:59 Last Admin: 02/21/18 11:52 Dose: Not Given Miscellaneous (Vte Chemical Prophylaxis Screen/ Admission) 1 ea MC PRN PRN PRN Reason: PROTOCOL Stop: 04/13/18 11:55 Miscellaneous (Probiotic Screen) 1 ea PRN PRN PRN Reason: PROTOCOL Stop: 04/13/18 12:31 Miscellaneous (Clinical Monitoring) 1 ea MC DAILY PRN PRN Reason: RENAL Stop: 04/16/18 15:38 Multivitamins/Vitamin C (Theragran) 1 tab PO DAILY [facility] Stop: 04/13/18 09:59 Last Admin: 02/21/18 09:50 Dose: Not Given Nitroglycerin (Nitrostat) 0.4 mg SL Q5MIN PRN PRN Reason: Chest Pain Quetiapine Fumarate (Seroquel) 50 mg PO TID [facility]; Protocol Stop: 04/13/18 08:59 Last Admin: 02/21/18 09:50 Dose: Not Given Vitamin D (Vitamin D3) 2,000 iu PO DAILY [facility] Stop: 04/13/18 09:59 Last Admin: 02/21/18 09:50 Dose: Not Given General: no acute distress, well developed, well nourished HEENT: atraumatic, normocephalic, PERRLA, EOMI Neck: supple, no thyromegaly Cardiovascular: S1S2, regular Lungs: clear to auscultation bilaterally, clear to percussion Abdomen: soft, no tender, no distended, no mass Extremities: other, no cyanosis, no clubbing, no edema Neurological: awake, alert Infectious Disease Assmt/Plan - Problem List Patient Problems: All Active Problems Altered mental status (Acute) R41.82 Anemia (Acute) D64.9 Encephalopathy (Acute) G93.40 FALL WITH LEFT SHOULDER PAIN/CONFUSION (Acute) Facial injury (Acute) H/O fall (Acute) Z91.81 Renal insufficiency (Acute) rt parascapular bruising (Acute) - Assessment Assessment: 1. UTI. ESBL E coli treated. 2. History of fall. 3. Dementia. 4. coronary artery disease.CABG 5. Thyroid disorder. 6. pacemaker placement. 7. CABG 8. Leukocytosis. - Plan Plan: DC meropenem. Check CBC in am Sepsis w/u. Flagyl/ Nutritional Asmnt/Malnutr-PDOC - Dietary Evaluation Malnutrition Findings (Please click <Entered> for more info): Nutritional Asmnt/Malnutrition Start: 02/15/18 18: 13 Text: Status: Complete Freq: Protocol: Document 02/15/18 18:16 LCHENG (Rec: 02/15/18 18:28 [email or web address] [email or web address]) Nutritional Asmnt/Malnutrition Patient General Information Nutritional Screening Moderate Risk Diagnosis CHF, UTI,sinus Fx Pertinent Medical Hx/Surgical Hx CAD, thyroid disorder, aortic valve replacement, pacemaker, CAD, CABG Subjective Information Pt seen resting in bed at time of visit. Per MANAGER WATER WASTEWATER, pt was not eating much, refusing to eat. Per nurse, pt is very confused, on restrains. Per EMR, PO intake 0-25%, refuse most of meals. MD ordered renal US per nurse note d/t blood in urine. Current Diet Order/ Nutrition Support mech soft chopped, cardiac Pertinent Medications lasix, culturelle, levothyroxine, megace, theragran, seroquel, vit D3 Pertinent Labs 02/15 K 3.4, BUN 47, Cr 1.3, glucose 124 Nutritional Hx/Data Height 1.6 m Height (Calculated Centimeters) 160.0 Current Weight (lbs) 66.224 kg Weight (Calculated Kilograms) 66.2 Weight (Calculated Grams) 47874.5 [place] Body Weight 115 Body Mass Index (BMI) 25.8 Weight Status Overweight GI Symptoms GI Symptoms None Last BM none Difficult in: None Skin Integrity/Comment: intact Current %PO Negligible < 25% Estimated Nutritional Goals BEE in Kcals: Using Current wt Calories/Kcals/Kg 23-27 Kcals Calculated 1901-1485 Protein: Using Current wt Protein g/k.8 Protein Calculated 52 Nutritional Problem 2. Problem Problem inadequate food intake Etiology confusion and poor cognition Signs/Symptoms: PO intake 0-25% 1. Problem Problem altered nutrition related labs Etiology electrolytes imbalance, possible renal function Signs/Symptoms: K 3.4, BUN 47, Cr 1.3 Malnutrition Alert Is there a minimum of two criteria No selected? Query Text:Check all the applicable criteria. A minimum of two criteria are recommended for diagnosis of either severe or non-severe malnutrition. Malnutrition Related to Morbid Obesity Malnutrition related to morbid obesity No Intervention/Recommendation Comments 1. Continue with current diet as ordered. Encourage oral intake and assist with meals as needed. 2. Monitor PO intake, wt, labs and skin integrity 3. F/U as moderate risk in 3-5 days, 02/18-02/20, PO check Expected Outcomes/Goals Expected Outcomes/Goals 1. PO intake to meet at least 75% of nutritional needs. 2. Wt stability, skin to remain intact, labs to approach WNL.
--- NOTE | 2018-02-21 14:42 | Progress Notes ---
DATE: 02/21/2018 Case was discussed with staff of the patient, reviewed records. The patient was calmer. She is not yelling and screaming as she was. Tolerated the increase in Seroquel with no side effects. No sedation, no nausea, no extrapyramidal symptoms. If the patient start acting out again and if she is medically stable, can go to [facility]. Thank you very much for allowing me to participate in the care of this most interesting lady. JOB# [id number]
--- NOTE | 2018-02-21 16:42 | General Progress Note ---
Subjective - Review of Systems Events since last encounter: doing well no fever Objective - Results Result Diagrams: 02/22/18 05:48 02/21/18 06:20 Recent Labs: Laboratory Last Values WBC 18.4 Th/cmm (4.8-10.8) H 02/21/18 06:20 RBC 4.94 Mil/cmm (3.80-5.20) 02/21/18 06:20 Hgb 14.1 gm/dL (12-16) 02/21/18 06:20 Hct 41.6 % (41.0-60) 02/21/18 06:20 MCV 84.2 fl (81-100) 02/21/18 06:20 MCH 28.5 pg (27.0-31.0) 02/21/18 06:20 MCHC Differential 33.9 pg (28.0-36.0) 02/21/18 06:20 RDW 17.0 % (11.5-20.0) 02/21/18 06:20 Plt Count 150 Th/cmm (150-400) 02/21/18 06:20 MPV 10.1 fl 02/21/18 06:20 Add Manual Diff YES 02/21/18 06:20 Neutrophils % 79.2 % (40.0-80.0) 02/18/18 11:01 Band Neutrophils % 1 % (0-10) 02/21/18 06:20 Lymphocytes % 13.5 % (20.0-50.0) L 02/18/18 11:01 Monocytes % 6.5 % (2.0-10.0) 02/18/18 11:01 Eosinophils % 0.8 % (0.0-5.0) 02/18/18 11:01 Basophils % 0.0 % (0.0-2.0) 02/18/18 11:01 Neutrophils (Manual) 77 % (40-80) 02/21/18 06:20 Lymphocytes 15 % (20-50) L 02/21/18 06:20 Monocytes 5 % (2-10) 02/21/18 06:20 Eosinophils 2 % (0-5) 02/21/18 06:20 Basophils 0 % (0-3) 02/21/18 06:20 Platelet Estimate ADEQUATE (NORMAL) 02/21/18 06:20 PT 10.8 SECONDS (9.5-11.5) 02/11/18 15:11 INR 1.04 (0.5-1.4) 02/11/18 15:11 PTT (Actin FS) 25.9 SECONDS (26.0-38.0) L 02/12/18 06:00 D-Dimer 2920 ng/mL (100-400) H 02/12/18 06:00 Sodium 144 mEq/L (136-145) 02/21/18 06:20 Potassium 3.9 mEq/L (3.5-5.1) 02/21/18 06:20 Chloride 111 mEq/L (98-107) H 02/21/18 06:20 Carbon Dioxide 21.9 mEq/L (21.0-31.0) 02/21/18 06:20 Anion Gap 15.0 (7.0-16.0) 02/21/18 06:20 BUN 103 mg/dL (7-25) H* 02/21/18 06:20 Creatinine 1.6 mg/dL (0.6-1.2) H 02/21/18 06:20 Est GFR ( Amer) TNP 02/21/18 06:20 Est GFR (Non-Af Amer) TNP 02/21/18 06:20 BUN/Creatinine Ratio 64.4 02/21/18 06:20 Glucose 98 mg/dL (70-105) 02/21/18 06:20 POC Glucose 95 MG/DL (70 - 105) 02/11/18 21:11 Whole Bld Lactic Acid 1.16 mmol/L (0.60-1.99) 02/11/18 15:21 Calcium 9.9 mg/dL (8.6-10.3) 02/21/18 06:20 Phosphorus 3.5 mg/dL (2.5-5.0) 02/11/18 15:11 Magnesium 2.8 mg/dL (1.9-2.7) H 02/21/18 06:20 Total Bilirubin 1.2 mg/dL (0.3-1.0) H 02/21/18 06:20 AST 36 U/L (13-39) 02/21/18 06:20 ALT 17 U/L (7-52) 02/21/18 06:20 Alkaline Phosphatase 80 U/L (34-104) 02/21/18 06:20 Creatine Kinase 40 U/L (30-223) 02/12/18 06:00 Troponin I < 0.01 ng/mL (0.01-0.05) L 02/11/18 14:14 B-Natriuretic Peptide 317.0 pg/mL (5.0-100.0) H 02/21/18 06:20 Total Protein 7.5 gm/dL (6.0-8.3) 02/21/18 06:20 Albumin 3.7 gm/dL (3.7-5.3) 02/21/18 06:20 Globulin 3.8 gm/dL 02/21/18 06:20 Albumin/Globulin Ratio 1.0 (1.0-1.8) 02/21/18 06:20 TSH 1.01 uIU/ml (0.34-5.60) 02/11/18 15:11 Urine Source MIDSTREAM 02/15/18 04:38 Urine Color YELLOW 02/15/18 04:38 Urine Clarity HAZY (CLEAR) 02/15/18 04:38 Urine pH 5.5 (4.6 - 8.0) 02/15/18 04:38 Ur Specific [place] 1.020 (1.005-1.030) 02/15/18 04:38 Urine Protein 100 mg/dL (NEGATIVE) H 02/15/18 04:38 Urine Glucose (UA) NEGATIVE mg/dL (NEGATIVE) 02/15/18 04:38 Urine Ketones TRACE mg/dL (NEGATIVE) 02/15/18 04:38 Urine Blood LARGE (NEGATIVE) H 02/15/18 04:38 Urine Nitrate NEGATIVE (NEGATIVE) 02/15/18 04:38 Urine Bilirubin NEGATIVE (NEGATIVE) 02/15/18 04:38 Urine Urobilinogen 0.2 E.U./dL (0.2 - 1.0) 02/15/18 04:38 Ur Leukocyte Esterase SMALL (NEGATIVE) H 02/15/18 04:38 Urine RBC 2-5 /hpf (0-5) 02/15/18 04:38 Urine WBC 6-10 /hpf (0-5) H 02/15/18 04:38 Ur Epithelial Cells MODERATE /lpf (FEW) 02/15/18 04:38 Urine Bacteria FEW /hpf (NONE SEEN) 02/15/18 04:38 Fine Granular Casts 0-2 /lpf (NONE SEEN) H 02/11/18 15:43 Urine Opiates Screen NEGATIVE (NEGATIVE) 02/11/18 15:43 Urine Methadone Screen NEGATIVE (NEGATIVE) 02/11/18 15:43 Ur Barbiturates Screen NEGATIVE (NEGATIVE) 02/11/18 15:43 Ur Tricyclics Screen NEGATIVE (NEGATIVE) 02/11/18 15:43 Ur Phencyclidine Scrn NEGATIVE (NEGATIVE) 02/11/18 15:43 Amphetamines Screen NEGATIVE (NEGATIVE) 02/11/18 15:43 U Methamphetamines Scrn NEGATIVE (NEGATIVE) 02/11/18 15:43 U Benzodiazepines Scrn POSITIVE (NEGATIVE) H 02/11/18 15:43 U Cocaine Metab Screen NEGATIVE (NEGATIVE) 02/11/18 15:43 U Cannabinoids Screen NEGATIVE (NEGATIVE) 02/11/18 15:43 - Physical Exam Vitals and I&O: Vital Signs Temp 97.4 F 02/21/18 14:00 Pulse 74 02/21/18 14:00 Resp 18 02/21/18 14:00 BP 126/78 02/21/18 14:00 Pulse Ox 96 02/21/18 07:13 Intake & Output 02/20/18 02/21/18 02/21/18 18:59 06:59 18:59 Intake Total 1179.167 50 Output Total 950 Balance 1179.167 -900 Weight (lbs) 65.136 kg Intake: Intake, IV Amount 1179.167 50 Meropenem 500 mg In 50 50 Sodium Chloride 0.9% 50 ml @ 50 mls/hr IV Q12H [facility] Rx#:[id number] Sodium Chloride 0.45% 1, 1129.167 000 ml @ 125 mls/hr IV . Q8H [facility] Rx#:[id number] Output: Urine 950 Other: Weight Source Bedscale Active Medications: Current Medications Acetaminophen (Tylenol 650mg Supp) 650 mg RC Q4H PRN PRN Reason: FEVER >100, OR MILD PAIN Stop: 04/13/18 08:40 Albuterol/Ipratropium (Duoneb Neb) 3 ml HHN Q4HRT PRN PRN Reason: Shortness of Breath Stop: 04/13/18 08:40 Alprazolam (Xanax) 0.5 mg PO BID [facility]; Protocol Stop: 04/13/18 08:59 Last Admin: 02/21/18 09:50 Dose: Not Given Carvedilol (Coreg) 6.25 mg PO BID [facility] Stop: 04/13/18 09:59 Last Admin: 02/21/18 09:35 Dose: Not Given Clopidogrel Bisulfate (Plavix) 75 mg PO DAILY [facility] Stop: 04/13/18 09:59 Last Admin: 02/21/18 09:50 Dose: Not Given Sodium Chloride (Nacl 0.45%) 1,000 mls @ 100 mls/hr IV .Q10H [facility] Stop: 04/22/18 13:59 Lactobacillus Rhamnosus (Culturelle 15b) 1 each PO DAILY [facility] Stop: 04/13/18 13:59 Last Admin: 02/21/18 09:50 Dose: Not Given Levothyroxine Sodium 0.1 mg/ (Levothyroxine Sodium 0.05 mg) 0.15 mg PO QDAC [facility] Stop: 04/13/18 09:59 Last Admin: 02/21/18 07:55 Dose: Not Given Lorazepam (Ativan) 0.5 mg IM Q6HR PRN; Protocol PRN Reason: Anxiety Stop: 04/15/18 08:51 Last Admin: 02/21/18 09:03 Dose: 0.5 mg Megestrol Acetate (Megace) 200 mg PO DAILY [facility] Stop: 04/13/18 09:59 Last Admin: 02/21/18 11:52 Dose: Not Given Miscellaneous (Vte Chemical Prophylaxis Screen/ Admission) 1 ea MC PRN PRN PRN Reason: PROTOCOL Stop: 04/13/18 11:55 Miscellaneous (Probiotic Screen) 1 ea MC PRN PRN PRN Reason: PROTOCOL Stop: 04/13/18 12:31 Miscellaneous (Clinical Monitoring) 1 ea MC DAILY PRN PRN Reason: RENAL Stop: 04/16/18 15:38 Multivitamins/Vitamin C (Theragran) 1 tab PO DAILY [facility] Stop: 04/13/18 09:59 Last Admin: 02/21/18 09:50 Dose: Not Given Nitroglycerin (Nitrostat) 0.4 mg SL Q5MIN PRN PRN Reason: Chest Pain Quetiapine Fumarate (Seroquel) 50 mg PO TID [facility]; Protocol Stop: 04/13/18 08:59 Last Admin: 02/21/18 09:50 Dose: Not Given Vitamin D (Vitamin D3) 2,000 iu PO DAILY [facility] Stop: 04/13/18 09:59 Last Admin: 02/21/18 09:50 Dose: Not Given General: No acute distress HEENT: Atraumatic, PERRLA Neck: Supple, JVD Cardiovascular: Regular rate, Normal S1 Lungs: Clear to auscultation Assessment/Plan - Problem List Patient Problems: All Active Problems Altered mental status (Acute) R41.82 Anemia (Acute) D64.9 Encephalopathy (Acute) G93.40 FALL WITH LEFT SHOULDER PAIN/CONFUSION (Acute) Facial injury (Acute) H/O fall (Acute) Z91.81 Renal insufficiency (Acute) rt parascapular bruising (Acute) - Plan Plan: as per order sheet Nutritional Asmnt/Malnutr-PDOC - Dietary Evaluation Malnutrition Findings (Please click <Entered> for more info): Nutritional Asmnt/Malnutrition Start: 02/15/18 18: 13 Text: Status: Complete Freq: Protocol: Document 02/15/18 18:16 LCHENG (Rec: 02/15/18 18:28 [email or web address]) Nutritional Asmnt/Malnutrition Patient General Information Nutritional Screening Moderate Risk Diagnosis CHF, UTI,sinus Fx Pertinent Medical Hx/Surgical Hx CAD, thyroid disorder, aortic valve replacement, pacemaker, CAD, CABG Subjective Information Pt seen resting in bed at time of visit. Per PAINT TECHNICIAN, pt was not eating much, refusing to eat. Per nurse, pt is very confused, on restrains. Per EMR, PO intake 0-25%, refuse most of meals. ordered renal US per nurse note d/t blood in urine. Current Diet Order/ Nutrition Support [facility] soft chopped, cardiac Pertinent Medications lasix, culturelle, levothyroxine, megace, theragran, seroquel, vit D3 Pertinent Labs 02/15 K 3.4, BUN 47, Cr 1.3, glucose 124 Nutritional Hx/Data Height 1.6 m Height (Calculated Centimeters) 160.0 Current Weight (lbs) 66.224 kg Weight (Calculated Kilograms) 66.2 Weight (Calculated Grams) 02666.5 [place] Body Weight 115 Body Mass Index (BMI) 25.8 Weight Status Overweight GI Symptoms GI Symptoms None Last BM none Difficult in: None Skin Integrity/Comment: intact Current %PO Negligible < 25% Estimated Nutritional Goals BEE in Kcals: Using Current wt Calories/Kcals/Kg 23-27 Kcals Calculated 3824-1924 Protein: Using Current wt Protein g/k.8 Protein Calculated 52 Nutritional Problem 2. Problem Problem inadequate food intake Etiology confusion and poor cognition Signs/Symptoms: PO intake 0-25% 1. Problem Problem altered nutrition related labs Etiology electrolytes imbalance, possible renal function Signs/Symptoms: K 3.4, BUN 47, Cr 1.3 Malnutrition Alert Is there a minimum of two criteria No selected? Query Text:Check all the applicable criteria. A minimum of two criteria are recommended for diagnosis of either severe or non-severe malnutrition. Malnutrition Related to Morbid Obesity Malnutrition related to morbid obesity No Intervention/Recommendation Comments 1. Continue with current diet as ordered. Encourage oral intake and assist with meals as needed. 2. Monitor PO intake, wt, labs and skin integrity 3. F/U as moderate risk in 3-5 days, 02/18-02/20, PO check Expected Outcomes/Goals Expected Outcomes/Goals 1. PO intake to meet at least 75% of nutritional needs. 2. Wt stability, skin to remain intact, labs to approach WNL.
--- NOTE | 2018-02-22 01:47 | Consultation ---
DATE OF CONSULTATION: 02/19/2018 TIME: Around 11:45 a.m. REQUESTING PHYSICIAN: Dr. Correa. REASON FOR CONSULTATION: Acute renal failure with increasing BUN and creatinine. HISTORY OF PRESENT ILLNESS: When seen patient was almost semicomatose, seemed to be in deep sleep, tried to awake. She has hardly any movement. The patient's oropharynx revealed tongue to be completely dry and so was the oral mucosa. Further the history reviewed revealed the patient was admitted here on 02/11 with a history of "confusion, disorientation, and fall." The patient was seen in the Emergency Room at that time for facial injuries. We went through some CT scans and other studies. The patient had also a coronary artery disease . The patient also has "advanced congestive heart failure with ejection fraction of 28%" as per discussion with Dr. Eulogio Colbert, the cia agent. The patient's skin turgor was very poor on examination. No direct history could be obtained. Chest examination seems to be having good air entry bilaterally. No significant rales or rhonchi were noticed. Heart sounds were heard regularly. The patient also has a pacemaker. The patient's blood pressures were in the range of 110-100 systolic, diastolic in the range of 60-70 per minute. Heart rate noticed was about 70 per minute. Neurologically, I could not awake this lady. When I tried to awake, she says do not wake me up, let me sleep. The patient's biochemical data available that day was sodium 149, potassium 3.7, CO2 content 24.5, chloride 110, BUN 104, glucose 137, creatinine 2.5, calcium 10.5. BNP reported was 588. Considering that it was felt that patient is markedly dehydrated, could be due to multiple reasons that she is not waking up and has not been having much fluid, although recently the patient had been ordered normal saline at 125 mL per hour, which has been just started. MEDICATIONS: Reviewing the medicine, they were as follows: The patient was on Xanax 0.5 mg p.o. b.i.d., Coreg 6.25 mg p.o. b.i.d., Plavix 75 mg p.o. daily; doxycycline 100 mg q. 12 hours, reasons not known; Lasix 80 mg IV push b.i.d., heparin sodium subcutaneously q. 12 hours, meropenem 500 mg q. 12 hours. Sodium chloride as already mentioned, Motrin 400 mg p.o. q. 4 hours p.r.n. The patient was also on levothyroxine 0.1 mg in addition with that the patient was megestrol. The patient was also on metolazone that is Zaroxolyn 5 mg p.o. b.i.d. along with that the patient has been also on quetiapine 50 mg p.o. b.i.d., vitamin D 2000 international units. Reviewing that it was felt that some of the medicines need to be definitely cut down especially in view of dehydration and other problems. Therefore, it was advised to stop Lasix, stop Zaroxolyn, stop ibuprofen and also please stop heparin since the patient is already getting Plavix. To continue IV fluids, but change it to half normal saline to run at 125 mL per hour. The patient will be reviewed again. IMPRESSION: Remains as beside underlying heart disease and probably underlying confusion and psychiatric disease, the patient at present is markedly dehydrated and is in acute renal failure due to multiple reasons. Anti-inflammatory medication was also stopped like Motrin since in dehydration they may give rise to and add to the acute renal failure. Plan to repeat the CBC, CMP on 02/20 and then follow what happens. Also, advised the nursing people to clean the mouth well, so that oral mucosa is much more clear and better, so that she does not get any infection of the mouth. JOB# [id number]
[2018-02-22 06:18] LABS: % BASOPHILS 0.5 % (0.0-2.0); % EOSINOPHILS 2.2 % (0.0-5.0); % LYMPHOCYTES 14.9 % (20.0-50.0); % MONOCYTES 6.6 % (2.0-10.0); % NEUTROPHILS 75.8 % (40.0-80.0); BASOPHILE ABSOLUTE 0.1 Th/cumm (0-0.2); EOSINOPHILE ABSOLUTE 0.3 Th/cmm (0.1-0.4); HEMATOCRIT 38.6 % (41.0-60); HEMOGLOBIN 13.1 gm/dL (12-16); LYMPHOCYTE ABSOLUTE 2.1 Th/cmm (1.5-3.0); MEAN CELL VOLUME 83.8 fl (81-100); MEAN CORPUSCULAR HEMOGLOBIN 28.5 pg (27.0-31.0); MEAN PLATELET VOLUME 10.9 fl; MONOCYTE ABSOLUTE 0.9 Th/cmm (0.3-1.0); NEUTROPHILE ABSOLUTE 10.7 Th/cmm (1.8-8.0); PLATELET COUNT 143 Th/cmm (150-400); RED BLOOD COUNT 4.61 Mil/cmm (3.80-5.20); RED CELL DISTRIBUTION WIDTH 16.7 % (11.5-20.0)
[2018-02-22 06:22] LABS: WHITE BLOOD COUNT 14.1 Th/cmm (4.8-10.8)
[2018-02-22] MEDS: Lactobacillus Rhamnosus GG 15 Billion CFU CAP.SPRINK PO SCH (08:47)
[2018-02-22] MEDS: Vitamin D3 2,000 IU SGL PO SCH (08:47)
[2018-02-22] MEDS: Multivitamin Tab PO SCH (08:48)
--- NOTE | 2018-02-22 11:47 | Progress Notes ---
DATE: 02/22/2018 Case was discussed with staff of the patient, reviewed records. The patient has been calmer since I increased the Seroquel dose. Continues to be demented, confused, unable to make safe plan for self-care, unpredictable, impulsive, needing redirection. She is sleeping well and eating well, had to be prompted to eat by the staff. No side effects with the medication, no sedation, no nausea, no extrapyramidal symptoms. Thank you very much for allowing me to participate in the care of this most interesting lady. JOB# [id number]
[2018-02-22 13:37] LABS: ALB/GLOB RATIO 1.1 (1.0-1.8); ALBUMIN 3.6 gm/dL (3.7-5.3); ALKALINE PHOSPHATASE 74 U/L (34-104); ANION GAP 12.8 (7.0-16.0); BILIRUBIN,TOTAL 1.2 mg/dL (0.3-1.0); CALCIUM SERUM 9.7 mg/dL (8.6-10.3); CARBON DIOXIDE 23.6 mEq/L (21.0-31.0); CHLORIDE 111 mEq/L (98-107); CREATININE - SERUM 1.2 mg/dL (0.6-1.2); GLUCOSE 78 mg/dL (70-105); POTASSIUM SERUM 3.4 mEq/L (3.5-5.1); SGOT 38 U/L (13-39); SGPT/ALT 17 U/L (7-52); SODIUM SERUM 144 mEq/L (136-145); TOTAL PROTEIN,SERUM 6.9 gm/dL (6.0-8.3)
[2018-02-22 13:56] LABS: BUN - UREA NITROGEN 83 mg/dL (7-25)
[2018-02-22] MEDS: Sodium Chloride 0.45% 1,000 ML IV SCH (16:31)
--- NOTE | 2018-02-22 23:41 | Infectious Disease Prog Note ---
Infectious Disease Subjective - Review of Systems Service Date: 02/22/18 Subjective: Doing well, no fever. Refusing IV antibiotics. Infectious Disease Objective - Results Result Diagrams: 02/23/18 05:40 02/23/18 05:40 Recent Labs: Laboratory Last Values WBC 14.1 Th/cmm (4.8-10.8) H D 02/22/18 05:48 RBC 4.61 Mil/cmm (3.80-5.20) 02/22/18 05:48 Hgb 13.1 gm/dL (12-16) 02/22/18 05:48 Hct 38.6 % (41.0-60) L 02/22/18 05:48 MCV 83.8 fl (81-100) 02/22/18 05:48 MCH 28.5 pg (27.0-31.0) 02/22/18 05:48 MCHC Differential 34.0 pg (28.0-36.0) 02/22/18 05:48 RDW 16.7 % (11.5-20.0) 02/22/18 05:48 Plt Count 143 Th/cmm (150-400) L 02/22/18 05:48 MPV 10.9 fl 02/22/18 05:48 Add Manual Diff YES 02/21/18 06:20 Neutrophils % 75.8 % (40.0-80.0) 02/22/18 05:48 Band Neutrophils % 1 % (0-10) 02/21/18 06:20 Lymphocytes % 14.9 % (20.0-50.0) L 02/22/18 05:48 Monocytes % 6.6 % (2.0-10.0) 02/22/18 05:48 Eosinophils % 2.2 % (0.0-5.0) 02/22/18 05:48 Basophils % 0.5 % (0.0-2.0) 02/22/18 05:48 Neutrophils (Manual) 77 % (40-80) 02/21/18 06:20 Lymphocytes 15 % (20-50) L 02/21/18 06:20 Monocytes 5 % (2-10) 02/21/18 06:20 Eosinophils 2 % (0-5) 02/21/18 06:20 Basophils 0 % (0-3) 02/21/18 06:20 Platelet Estimate ADEQUATE (NORMAL) 02/21/18 06:20 PT 10.8 SECONDS (9.5-11.5) 02/11/18 15:11 INR 1.04 (0.5-1.4) 02/11/18 15:11 PTT (Actin FS) 25.9 SECONDS (26.0-38.0) L 02/12/18 06:00 D-Dimer 2920 ng/mL (100-400) H 02/12/18 06:00 Sodium 144 mEq/L (136-145) 02/22/18 05:48 Potassium 3.4 mEq/L (3.5-5.1) L 02/22/18 05:48 Chloride 111 mEq/L (98-107) H 02/22/18 05:48 Carbon Dioxide 23.6 mEq/L (21.0-31.0) 02/22/18 05:48 Anion Gap 12.8 (7.0-16.0) 02/22/18 05:48 BUN 83 mg/dL (7-25) H* 02/22/18 05:48 Creatinine 1.2 mg/dL (0.6-1.2) 02/22/18 05:48 Est GFR ( Amer) TNP 02/22/18 05:48 Est GFR (Non-Af Amer) TNP 02/22/18 05:48 BUN/Creatinine Ratio 69.2 02/22/18 05:48 Glucose 78 mg/dL (70-105) 02/22/18 05:48 POC Glucose 95 MG/DL (70 - 105) 02/11/18 21:11 Whole Bld Lactic Acid 1.16 mmol/L (0.60-1.99) 02/11/18 15:21 Calcium 9.7 mg/dL (8.6-10.3) 02/22/18 05:48 Phosphorus 3.5 mg/dL (2.5-5.0) 02/11/18 15:11 Magnesium 2.8 mg/dL (1.9-2.7) H 02/21/18 06:20 Total Bilirubin 1.2 mg/dL (0.3-1.0) H 02/22/18 05:48 AST 38 U/L (13-39) 02/22/18 05:48 ALT 17 U/L (7-52) 02/22/18 05:48 Alkaline Phosphatase 74 U/L (34-104) 02/22/18 05:48 Creatine Kinase 40 U/L (30-223) 02/12/18 06:00 Troponin I < 0.01 ng/mL (0.01-0.05) L 02/11/18 14:14 B-Natriuretic Peptide 317.0 pg/mL (5.0-100.0) H 02/21/18 06:20 Total Protein 6.9 gm/dL (6.0-8.3) 02/22/18 05:48 Albumin 3.6 gm/dL (3.7-5.3) L 02/22/18 05:48 Globulin 3.3 gm/dL 02/22/18 05:48 Albumin/Globulin Ratio 1.1 (1.0-1.8) 02/22/18 05:48 TSH 1.01 uIU/ml (0.34-5.60) 02/11/18 15:11 Urine Source MIDSTREAM 02/15/18 04:38 Urine Color YELLOW 02/15/18 04:38 Urine Clarity HAZY (CLEAR) 02/15/18 04:38 Urine pH 5.5 (4.6 - 8.0) 02/15/18 04:38 Ur Specific [place] 1.020 (1.005-1.030) 02/15/18 04:38 Urine Protein 100 mg/dL (NEGATIVE) H 02/15/18 04:38 Urine Glucose (UA) NEGATIVE mg/dL (NEGATIVE) 02/15/18 04:38 Urine Ketones TRACE mg/dL (NEGATIVE) 02/15/18 04:38 Urine Blood LARGE (NEGATIVE) H 02/15/18 04:38 Urine Nitrate NEGATIVE (NEGATIVE) 02/15/18 04:38 Urine Bilirubin NEGATIVE (NEGATIVE) 02/15/18 04:38 Urine Urobilinogen 0.2 E.U./dL (0.2 - 1.0) 02/15/18 04:38 Ur Leukocyte Esterase SMALL (NEGATIVE) H 02/15/18 04:38 Urine RBC 2-5 /hpf (0-5) 02/15/18 04:38 Urine WBC 6-10 /hpf (0-5) H 02/15/18 04:38 Ur Epithelial Cells MODERATE /lpf (FEW) 02/15/18 04:38 Urine Bacteria FEW /hpf (NONE SEEN) 02/15/18 04:38 Fine Granular Casts 0-2 /lpf (NONE SEEN) H 02/11/18 15:43 Urine Opiates Screen NEGATIVE (NEGATIVE) 02/11/18 15:43 Urine Methadone Screen NEGATIVE (NEGATIVE) 02/11/18 15:43 Ur Barbiturates Screen NEGATIVE (NEGATIVE) 02/11/18 15:43 Ur Tricyclics Screen NEGATIVE (NEGATIVE) 02/11/18 15:43 Ur Phencyclidine Scrn NEGATIVE (NEGATIVE) 02/11/18 15:43 Amphetamines Screen NEGATIVE (NEGATIVE) 02/11/18 15:43 U Methamphetamines Scrn NEGATIVE (NEGATIVE) 02/11/18 15:43 U Benzodiazepines Scrn POSITIVE (NEGATIVE) H 02/11/18 15:43 U Cocaine Metab Screen NEGATIVE (NEGATIVE) 02/11/18 15:43 U Cannabinoids Screen NEGATIVE (NEGATIVE) 02/11/18 15:43 - Physical Exam Vitals and I&O: Vital Signs Temp 98.2 F 02/22/18 22:00 Pulse 72 02/22/18 22:00 Resp 18 02/22/18 22:00 BP 149/69 02/22/18 22:00 Pulse Ox 95 02/22/18 20:00 Intake & Output 02/22/18 02/22/18 02/23/18 06:59 18:59 06:59 Intake Total 20 100 400 Output Total 1000 900 Balance -980 -800 400 Weight (lbs) 63.957 kg 63.957 kg 63.957 kg Intake: Oral 20 100 400 Output: Urine 1000 900 Other: # Bowel Movements 0 0 Weight Source Bedscale Bedscale Bedscale Active Medications: Current Medications Acetaminophen (Tylenol 650mg Supp) 650 mg RC Q4H PRN PRN Reason: FEVER >100, OR MILD PAIN Stop: 04/13/18 08:40 Albuterol/Ipratropium (Duoneb Neb) 3 ml HHN Q4HRT PRN PRN Reason: Shortness of Breath Stop: 04/13/18 08:40 Alprazolam (Xanax) 0.5 mg PO BID [facility]; Protocol Stop: 04/13/18 08:59 Last Admin: 02/22/18 16:08 Dose: Not Given Carvedilol (Coreg) 6.25 mg PO BID [facility] Stop: 04/13/18 09:59 Last Admin: 02/22/18 16:08 Dose: Not Given Clopidogrel Bisulfate (Plavix) 75 mg PO DAILY [facility] Stop: 04/13/18 09:59 Last Admin: 02/22/18 08:47 Dose: Not Given Sodium Chloride (Nacl 0.45%) 1,000 mls @ 100 mls/hr IV .Q10H [facility] Stop: 04/22/18 13:59 Last Admin: 02/22/18 16:31 Dose: 100 mls/hr Lactobacillus Rhamnosus (Culturelle 15b) 1 each PO DAILY [facility] Stop: 04/13/18 13:59 Last Admin: 02/22/18 08:47 Dose: Not Given Levothyroxine Sodium 0.1 mg/ (Levothyroxine Sodium 0.05 mg) 0.15 mg PO QDAC [facility] Stop: 04/13/18 09:59 Last Admin: 02/22/18 08:47 Dose: Not Given Megestrol Acetate (Megace) 200 mg PO DAILY [facility] Stop: 04/13/18 09:59 Last Admin: 02/22/18 08:47 Dose: Not Given Metronidazole (Flagyl) 500 mg PO TID [facility] Stop: 02/28/18 20:59 Last Admin: 02/22/18 22:02 Dose: Not Given Miscellaneous (Vte Chemical Prophylaxis Screen/ Admission) 1 ea PRN PRN PRN Reason: PROTOCOL Stop: 04/13/18 11:55 Miscellaneous (Probiotic Screen) 1 ea PRN PRN PRN Reason: PROTOCOL Stop: 04/13/18 12:31 Miscellaneous (Clinical Monitoring) 1 ea MC DAILY PRN PRN Reason: RENAL Stop: 04/16/18 15:38 Multivitamins/Vitamin C (Theragran) 1 tab PO DAILY [facility] Stop: 04/13/18 09:59 Last Admin: 02/22/18 08:48 Dose: Not Given Nitroglycerin (Nitrostat) 0.4 mg SL Q5MIN PRN PRN Reason: Chest Pain Quetiapine Fumarate (Seroquel) 50 mg PO TID [facility]; Protocol Stop: 04/13/18 08:59 Last Admin: 02/22/18 22:02 Dose: Not Given Vitamin D (Vitamin D3) 2,000 iu PO DAILY [facility] Stop: 04/13/18 09:59 Last Admin: 02/22/18 08:47 Dose: Not Given General: no acute distress, well developed, well nourished HEENT: atraumatic, normocephalic, PERRLA Neck: supple, no thyromegaly Cardiovascular: S1S2, regular Lungs: clear to auscultation bilaterally, clear to percussion Abdomen: soft, no tender, no distended Extremities: no cyanosis, no clubbing, no edema Neurological: awake, alert, oriented Skin: intact Infectious Disease Assmt/Plan - Problem List Patient Problems: All Active Problems Altered mental status (Acute) R41.82 Anemia (Acute) D64.9 Encephalopathy (Acute) G93.40 FALL WITH LEFT SHOULDER PAIN/CONFUSION (Acute) Facial injury (Acute) H/O fall (Acute) Z91.81 Renal insufficiency (Acute) rt parascapular bruising (Acute) - Assessment Assessment: 1. UTI. ESBL E coli treated. 2. History of fall. 3. Dementia. 4. coronary artery disease.CABG 5. Thyroid disorder. 6. pacemaker placement. 7. CABG 8. Leukocytosis. Improving. - Plan Plan: Check CBC in am Flagyl/ Nutritional Asmnt/Malnutr-PDOC - Dietary Evaluation Malnutrition Findings (Please click <Entered> for more info): Nutritional Asmnt/Malnutrition Start: 02/15/18 18: 13 Text: Status: Complete Freq: Protocol: Document 02/15/18 18:16 LCHENG (Rec: 02/15/18 18:28 [email or web address]) Nutritional Asmnt/Malnutrition Patient General Information Nutritional Screening Moderate Risk Diagnosis CHF, UTI,sinus Fx Pertinent Medical Hx/Surgical Hx CAD, thyroid disorder, aortic valve replacement, pacemaker, CAD, CABG Subjective Information Pt seen resting in bed at time of visit. Per DIETETIC TECHNICIAN REGISTERED, pt was not eating much, refusing to eat. Per nurse, pt is very confused, on restrains. Per EMR, PO intake 0-25%, refuse most of meals. ordered renal US per nurse note d/t blood in urine. Current Diet Order/ Nutrition Support [facility] soft chopped, cardiac Pertinent Medications lasix, culturelle, levothyroxine, megace, theragran, seroquel, vit D3 Pertinent Labs 02/15 K 3.4, BUN 47, Cr 1.3, glucose 124 Nutritional Hx/Data Height 1.6 m Height (Calculated Centimeters) 160.0 Current Weight (lbs) 66.224 kg Weight (Calculated Kilograms) 66.2 Weight (Calculated Grams) 25125.5 [place] Body Weight 115 Body Mass Index (BMI) 25.8 Weight Status Overweight GI Symptoms GI Symptoms None Last BM none Difficult in: None Skin Integrity/Comment: intact Current %PO Negligible < 25% Estimated Nutritional Goals BEE in Kcals: Using Current wt Calories/Kcals/Kg 23-27 Kcals Calculated 0624-3587 Protein: Using Current wt Protein g/k.8 Protein Calculated 52 Nutritional Problem 2. Problem Problem inadequate food intake Etiology confusion and poor cognition Signs/Symptoms: PO intake 0-25% 1. Problem Problem altered nutrition related labs Etiology electrolytes imbalance, possible renal function Signs/Symptoms: K 3.4, BUN 47, Cr 1.3 Malnutrition Alert Is there a minimum of two criteria No selected? Query Text:Check all the applicable criteria. A minimum of two criteria are recommended for diagnosis of either severe or non-severe malnutrition. Malnutrition Related to Morbid Obesity Malnutrition related to morbid obesity No Intervention/Recommendation Comments 1. Continue with current diet as ordered. Encourage oral intake and assist with meals as needed. 2. Monitor PO intake, wt, labs and skin integrity 3. F/U as moderate risk in 3-5 days, 02/18-02/20, PO check Expected Outcomes/Goals Expected Outcomes/Goals 1. PO intake to meet at least 75% of nutritional needs. 2. Wt stability, skin to remain intact, labs to approach WNL.
[2018-02-23 06:18] LABS: ALBUMIN 3.3 gm/dL (3.7-5.3); ALKALINE PHOSPHATASE 77 U/L (34-104); ANION GAP 10.8 (7.0-16.0); BILIRUBIN,TOTAL 1.3 mg/dL (0.3-1.0); BUN - UREA NITROGEN 57 mg/dL (7-25); CALCIUM SERUM 9.4 mg/dL (8.6-10.3); CARBON DIOXIDE 24.8 mEq/L (21.0-31.0); CHLORIDE 109 mEq/L (98-107); GLUCOSE 84 mg/dL (70-105); POTASSIUM SERUM 3.6 mEq/L (3.5-5.1); SGOT 39 U/L (13-39); SGPT/ALT 19 U/L (7-52); SODIUM SERUM 141 mEq/L (136-145); TOTAL PROTEIN,SERUM 6.5 gm/dL (6.0-8.3)
[2018-02-23 06:38] LABS: % BASOPHILS 0.9 % (0.0-2.0); % EOSINOPHILS 4.2 % (0.0-5.0); % MONOCYTES 8.3 % (2.0-10.0); % NEUTROPHILS 69.6 % (40.0-80.0); BASOPHILE ABSOLUTE 0.1 Th/cumm (0-0.2); EOSINOPHILE ABSOLUTE 0.5 Th/cmm (0.1-0.4); HEMATOCRIT 37.6 % (41.0-60); HEMOGLOBIN 13.1 gm/dL (12-16); LYMPHOCYTE ABSOLUTE 2.2 Th/cmm (1.5-3.0); MEAN CELL VOLUME 83.6 fl (81-100); MEAN CORPUSCULAR HEMOGLOBIN 29.1 pg (27.0-31.0); MEAN CORPUSCULAR HGB CONC 34.9 pg (28.0-36.0); MEAN PLATELET VOLUME 11.7 fl; MONOCYTE ABSOLUTE 1.1 Th/cmm (0.3-1.0); PLATELET COUNT 139 Th/cmm (150-400); RED CELL DISTRIBUTION WIDTH 16.8 % (11.5-20.0); WHITE BLOOD COUNT 12.9 Th/cmm (4.8-10.8)
[2018-02-23] MEDS: Sodium Chloride 0.45% 1,000 ML IV SCH ×2 (07:40→17:37)
[2018-02-23] MEDS: Multivitamin Tab PO SCH (09:50)
[2018-02-23] MEDS: Lactobacillus Rhamnosus GG 15 Billion CFU CAP.SPRINK PO SCH (09:50)
[2018-02-23] MEDS: Vitamin D3 2,000 IU SGL PO SCH (09:50)
--- NOTE | 2018-02-23 12:36 | Infectious Disease Prog Note ---
Infectious Disease Subjective - Review of Systems Service Date: 02/23/18 Subjective: Doing well, no fever. Infectious Disease Objective - Results Result Diagrams: 02/23/18 05:40 02/23/18 05:40 Recent Labs: Laboratory Last Values WBC 12.9 Th/cmm (4.8-10.8) H 02/23/18 05:40 RBC 4.50 Mil/cmm (3.80-5.20) 02/23/18 05:40 Hgb 13.1 gm/dL (12-16) 02/23/18 05:40 Hct 37.6 % (41.0-60) L 02/23/18 05:40 MCV 83.6 fl (81-100) 02/23/18 05:40 MCH 29.1 pg (27.0-31.0) 02/23/18 05:40 MCHC Differential 34.9 pg (28.0-36.0) 02/23/18 05:40 RDW 16.8 % (11.5-20.0) 02/23/18 05:40 Plt Count 139 Th/cmm (150-400) L 02/23/18 05:40 MPV 11.7 fl 02/23/18 05:40 Add Manual Diff YES 02/21/18 06:20 Neutrophils % 69.6 % (40.0-80.0) 02/23/18 05:40 Band Neutrophils % 1 % (0-10) 02/21/18 06:20 Lymphocytes % 17.0 % (20.0-50.0) L 02/23/18 05:40 Monocytes % 8.3 % (2.0-10.0) 02/23/18 05:40 Eosinophils % 4.2 % (0.0-5.0) 02/23/18 05:40 Basophils % 0.9 % (0.0-2.0) 02/23/18 05:40 Neutrophils (Manual) 77 % (40-80) 02/21/18 06:20 Lymphocytes 15 % (20-50) L 02/21/18 06:20 Monocytes 5 % (2-10) 02/21/18 06:20 Eosinophils 2 % (0-5) 02/21/18 06:20 Basophils 0 % (0-3) 02/21/18 06:20 Platelet Estimate ADEQUATE (NORMAL) 02/21/18 06:20 PT 10.8 SECONDS (9.5-11.5) 02/11/18 15:11 INR 1.04 (0.5-1.4) 02/11/18 15:11 PTT (Actin FS) 25.9 SECONDS (26.0-38.0) L 02/12/18 06:00 D-Dimer 2920 ng/mL (100-400) H 02/12/18 06:00 Sodium 141 mEq/L (136-145) 02/23/18 05:40 Potassium 3.6 mEq/L (3.5-5.1) 02/23/18 05:40 Chloride 109 mEq/L (98-107) H 02/23/18 05:40 Carbon Dioxide 24.8 mEq/L (21.0-31.0) 02/23/18 05:40 Anion Gap 10.8 (7.0-16.0) 02/23/18 05:40 BUN 57 mg/dL (7-25) H 02/23/18 05:40 Creatinine 1.0 mg/dL (0.6-1.2) 02/23/18 05:40 Est GFR ( Amer) TNP 02/23/18 05:40 Est GFR (Non-Af Amer) TNP 02/23/18 05:40 BUN/Creatinine Ratio 57.0 02/23/18 05:40 Glucose 84 mg/dL (70-105) 02/23/18 05:40 POC Glucose 95 MG/DL (70 - 105) 02/11/18 21:11 Whole Bld Lactic Acid 1.16 mmol/L (0.60-1.99) 02/11/18 15:21 Calcium 9.4 mg/dL (8.6-10.3) 02/23/18 05:40 Phosphorus 3.5 mg/dL (2.5-5.0) 02/11/18 15:11 Magnesium 2.8 mg/dL (1.9-2.7) H 02/21/18 06:20 Total Bilirubin 1.3 mg/dL (0.3-1.0) H 02/23/18 05:40 AST 39 U/L (13-39) 02/23/18 05:40 ALT 19 U/L (7-52) 02/23/18 05:40 Alkaline Phosphatase 77 U/L (34-104) 02/23/18 05:40 Creatine Kinase 40 U/L (30-223) 02/12/18 06:00 Troponin I < 0.01 ng/mL (0.01-0.05) L 02/11/18 14:14 B-Natriuretic Peptide 317.0 pg/mL (5.0-100.0) H 02/21/18 06:20 Total Protein 6.5 gm/dL (6.0-8.3) 02/23/18 05:40 Albumin 3.3 gm/dL (3.7-5.3) L 02/23/18 05:40 Globulin 3.2 gm/dL 02/23/18 05:40 Albumin/Globulin Ratio 1.0 (1.0-1.8) 02/23/18 05:40 TSH 1.01 uIU/ml (0.34-5.60) 02/11/18 15:11 Urine Source MIDSTREAM 02/15/18 04:38 Urine Color YELLOW 02/15/18 04:38 Urine Clarity HAZY (CLEAR) 02/15/18 04:38 Urine pH 5.5 (4.6 - 8.0) 02/15/18 04:38 Ur Specific [place] 1.020 (1.005-1.030) 02/15/18 04:38 Urine Protein 100 mg/dL (NEGATIVE) H 02/15/18 04:38 Urine Glucose (UA) NEGATIVE mg/dL (NEGATIVE) 02/15/18 04:38 Urine Ketones TRACE mg/dL (NEGATIVE) 02/15/18 04:38 Urine Blood LARGE (NEGATIVE) H 02/15/18 04:38 Urine Nitrate NEGATIVE (NEGATIVE) 02/15/18 04:38 Urine Bilirubin NEGATIVE (NEGATIVE) 02/15/18 04:38 Urine Urobilinogen 0.2 E.U./dL (0.2 - 1.0) 02/15/18 04:38 Ur Leukocyte Esterase SMALL (NEGATIVE) H 02/15/18 04:38 Urine RBC 2-5 /hpf (0-5) 02/15/18 04:38 Urine WBC 6-10 /hpf (0-5) H 02/15/18 04:38 Ur Epithelial Cells MODERATE /lpf (FEW) 02/15/18 04:38 Urine Bacteria FEW /hpf (NONE SEEN) 02/15/18 04:38 Fine Granular Casts 0-2 /lpf (NONE SEEN) H 02/11/18 15:43 Urine Opiates Screen NEGATIVE (NEGATIVE) 02/11/18 15:43 Urine Methadone Screen NEGATIVE (NEGATIVE) 02/11/18 15:43 Ur Barbiturates Screen NEGATIVE (NEGATIVE) 02/11/18 15:43 Ur Tricyclics Screen NEGATIVE (NEGATIVE) 02/11/18 15:43 Ur Phencyclidine Scrn NEGATIVE (NEGATIVE) 02/11/18 15:43 Amphetamines Screen NEGATIVE (NEGATIVE) 02/11/18 15:43 U Methamphetamines Scrn NEGATIVE (NEGATIVE) 02/11/18 15:43 U Benzodiazepines Scrn POSITIVE (NEGATIVE) H 02/11/18 15:43 U Cocaine Metab Screen NEGATIVE (NEGATIVE) 02/11/18 15:43 U Cannabinoids Screen NEGATIVE (NEGATIVE) 02/11/18 15:43 - Physical Exam Vitals and I&O: Vital Signs Temp 97.6 F 02/23/18 10:00 Pulse 70 02/23/18 10:00 Resp 18 02/23/18 10:00 BP 131/69 02/23/18 10:00 Pulse Ox 99 02/23/18 08:00 Intake & Output 02/22/18 02/23/18 02/23/18 18:59 06:59 18:59 Intake Total 100 1400 Output Total 900 800 Balance -800 600 Weight (lbs) 63.957 kg 63.957 kg Intake: Intake, IV Amount 1000 Sodium Chloride 0.45% 1, 1000 000 ml @ 100 mls/hr IV . Q10H [facility] Rx#:[id number] Oral 100 400 Output: Urine 900 800 Other: # Bowel Movements 0 Weight Source Bedscale Bedscale Active Medications: Current Medications Acetaminophen (Tylenol 650mg Supp) 650 mg RC Q4H PRN PRN Reason: FEVER >100, OR MILD PAIN Stop: 04/13/18 08:40 Albuterol/Ipratropium (Duoneb Neb) 3 ml HHN Q4HRT PRN PRN Reason: Shortness of Breath Stop: 04/13/18 08:40 Alprazolam (Xanax) 0.5 mg PO BID [facility]; Protocol Stop: 04/13/18 08:59 Last Admin: 02/23/18 11:47 Dose: 0.5 mg Carvedilol (Coreg) 6.25 mg PO BID [facility] Stop: 04/13/18 09:59 Last Admin: 02/23/18 09:50 Dose: Not Given Clopidogrel Bisulfate (Plavix) 75 mg PO DAILY [facility] Stop: 04/13/18 09:59 Last Admin: 02/23/18 09:50 Dose: Not Given Sodium Chloride (Nacl 0.45%) 1,000 mls @ 100 mls/hr IV .Q10H [facility] Stop: 04/22/18 13:59 Last Admin: 02/23/18 07:40 Dose: 100 mls/hr Lactobacillus Rhamnosus (Culturelle 15b) 1 each PO DAILY [facility] Stop: 04/13/18 13:59 Last Admin: 02/23/18 09:50 Dose: Not Given Levothyroxine Sodium 0.1 mg/ (Levothyroxine Sodium 0.05 mg) 0.15 mg PO QDAC [facility] Stop: 04/13/18 09:59 Last Admin: 02/23/18 06:51 Dose: Not Given Megestrol Acetate (Megace) 200 mg PO DAILY [facility] Stop: 04/13/18 09:59 Last Admin: 02/23/18 09:50 Dose: Not Given Metronidazole (Flagyl) 500 mg PO TID [facility] Stop: 02/28/18 20:59 Last Admin: 02/23/18 09:50 Dose: Not Given Miscellaneous (Vte Chemical Prophylaxis Screen/ Admission) 1 ea MC PRN PRN PRN Reason: PROTOCOL Stop: 04/13/18 11:55 Miscellaneous (Probiotic Screen) 1 ea PRN PRN PRN Reason: PROTOCOL Stop: 04/13/18 12:31 Miscellaneous (Clinical Monitoring) 1 ea MC DAILY PRN PRN Reason: RENAL Stop: 04/16/18 15:38 Multivitamins/Vitamin C (Theragran) 1 tab PO DAILY [facility] Stop: 04/13/18 09:59 Last Admin: 02/23/18 09:50 Dose: Not Given Nitroglycerin (Nitrostat) 0.4 mg SL Q5MIN PRN PRN Reason: Chest Pain Quetiapine Fumarate (Seroquel) 100 mg PO BID [facility]; Protocol Stop: 04/24/18 16:59 Vitamin D (Vitamin D3) 2,000 iu PO DAILY [facility] Stop: 04/13/18 09:59 Last Admin: 02/23/18 09:50 Dose: Not Given General: no acute distress, well developed, well nourished HEENT: atraumatic, normocephalic, PERRLA, EOMI Neck: supple, no thyromegaly Cardiovascular: S1S2, regular Lungs: clear to auscultation bilaterally, clear to percussion Abdomen: soft, no tender Extremities: no cyanosis, no clubbing, no edema Neurological: awake, alert Skin: intact, no rash, no subcutaneous nodules Infectious Disease Assmt/Plan - Problem List Patient Problems: All Active Problems Altered mental status (Acute) R41.82 Anemia (Acute) D64.9 Encephalopathy (Acute) G93.40 FALL WITH LEFT SHOULDER PAIN/CONFUSION (Acute) Facial injury (Acute) H/O fall (Acute) Z91.81 Renal insufficiency (Acute) rt parascapular bruising (Acute) - Assessment Assessment: 1. UTI. ESBL E coli treated. 2. History of fall. 3. Dementia. 4. coronary artery disease.CABG 5. Thyroid disorder. 6. pacemaker placement. 7. CABG 8. Leukocytosis. Improving. - Plan Plan: Check CBC in am dc Flagyl/ DC plan. Nutritional Asmnt/Malnutr-PDOC - Dietary Evaluation Malnutrition Findings (Please click <Entered> for more info): Nutritional Asmnt/Malnutrition Start: 02/15/18 18: 13 Text: Status: Complete Freq: Protocol: Document 02/15/18 18:16 LCHENG (Rec: 02/15/18 18:28 [email or web address]) Nutritional Asmnt/Malnutrition Patient General Information Nutritional Screening Moderate Risk Diagnosis CHF, UTI,sinus Fx Pertinent Medical Hx/Surgical Hx CAD, thyroid disorder, aortic valve replacement, pacemaker, CAD, CABG Subjective Information Pt seen resting in bed at time of visit. Per TEXTILE ARTIST, pt was not eating much, refusing to eat. Per nurse, pt is very confused, on restrains. Per EMR, PO intake 0-25%, refuse most of meals. MD ordered renal US per nurse note d/t blood in urine. Current Diet Order/ Nutrition Support mech soft chopped, cardiac Pertinent Medications lasix, culturelle, levothyroxine, megace, theragran, seroquel, vit D3 Pertinent Labs 02/15 K 3.4, BUN 47, Cr 1.3, glucose 124 Nutritional Hx/Data Height 1.6 m Height (Calculated Centimeters) 160.0 Current Weight (lbs) 66.224 kg Weight (Calculated Kilograms) 66.2 Weight (Calculated Grams) 72468.5 [place] Body Weight 115 Body Mass Index (BMI) 25.8 Weight Status Overweight GI Symptoms GI Symptoms None Last BM none Difficult in: None Skin Integrity/Comment: intact Current %PO Negligible < 25% Estimated Nutritional Goals BEE in Kcals: Using Current wt Calories/Kcals/Kg 23-27 Kcals Calculated 9974-5667 Protein: Using Current wt Protein g/k.8 Protein Calculated 52 Nutritional Problem 2. Problem Problem inadequate food intake Etiology confusion and poor cognition Signs/Symptoms: PO intake 0-25% 1. Problem Problem altered nutrition related labs Etiology electrolytes imbalance, possible renal function Signs/Symptoms: K 3.4, BUN 47, Cr 1.3 Malnutrition Alert Is there a minimum of two criteria No selected? Query Text:Check all the applicable criteria. A minimum of two criteria are recommended for diagnosis of either severe or non-severe malnutrition. Malnutrition Related to Morbid Obesity Malnutrition related to morbid obesity No Intervention/Recommendation Comments 1. Continue with current diet as ordered. Encourage oral intake and assist with meals as needed. 2. Monitor PO intake, wt, labs and skin integrity 3. F/U as moderate risk in 3-5 days, 02/18-02/20, PO check Expected Outcomes/Goals Expected Outcomes/Goals 1. PO intake to meet at least 75% of nutritional needs. 2. Wt stability, skin to remain intact, labs to approach WNL.
--- NOTE | 2018-02-23 13:00 | Progress Notes ---
DATE: 02/23/2018 FOLLOW-UP PROGRESS NOTE PROGRESS ON THE UNIT: Case was discussed with staff of the patient. The patient, though was calmer, now started having episodes where she is talking to herself. She continues to have poor insight, unpredictable, impulsive, needing redirection. She continues to be easily agitated. PLAN: I will be increasing her Seroquel dose to 100 mg twice a day to help improve her psychotic symptoms, agitation. Thank you very much for allowing me to participate in the care of this most interesting lady. JOB# [id number]
[2018-02-24 06:53] LABS: % BASOPHILS 0.3 % (0.0-2.0); % EOSINOPHILS 3.4 % (0.0-5.0); % LYMPHOCYTES 14.5 % (20.0-50.0); % MONOCYTES 6.8 % (2.0-10.0); EOSINOPHILE ABSOLUTE 0.5 Th/cmm (0.1-0.4); HEMATOCRIT 41.1 % (41.0-60); LYMPHOCYTE ABSOLUTE 2.1 Th/cmm (1.5-3.0); MEAN CELL VOLUME 84.1 fl (81-100); MEAN CORPUSCULAR HEMOGLOBIN 28.6 pg (27.0-31.0); MEAN PLATELET VOLUME 10.9 fl; NEUTROPHILE ABSOLUTE 10.9 Th/cmm (1.8-8.0); PLATELET COUNT 158 Th/cmm (150-400); RED BLOOD COUNT 4.89 Mil/cmm (3.80-5.20); RED CELL DISTRIBUTION WIDTH 16.6 % (11.5-20.0); WHITE BLOOD COUNT 14.5 Th/cmm (4.8-10.8)
[2018-02-24] MEDS: Sodium Chloride 0.45% 1,000 ML IV SCH ×2 (08:52→16:43)
[2018-02-24] MEDS: Vitamin D3 2,000 IU SGL PO SCH (08:59)
[2018-02-24] MEDS: Lactobacillus Rhamnosus GG 15 Billion CFU CAP.SPRINK PO SCH (09:00)
[2018-02-24] MEDS: Multivitamin Tab PO SCH (09:00)
--- NOTE | 2018-02-24 15:15 | Infectious Disease Prog Note ---
Infectious Disease Subjective - Review of Systems Service Date: 02/24/18 Subjective: Doing well, no fever. Infectious Disease Objective - Results Result Diagrams: 02/24/18 06:06 02/23/18 05:40 Recent Labs: Laboratory Last Values WBC 14.5 Th/cmm (4.8-10.8) H 02/24/18 06:06 RBC 4.89 Mil/cmm (3.80-5.20) 02/24/18 06:06 Hgb 14.0 gm/dL (12-16) 02/24/18 06:06 Hct 41.1 % (41.0-60) 02/24/18 06:06 MCV 84.1 fl (81-100) 02/24/18 06:06 MCH 28.6 pg (27.0-31.0) 02/24/18 06:06 MCHC Differential 34.0 pg (28.0-36.0) 02/24/18 06:06 RDW 16.6 % (11.5-20.0) 02/24/18 06:06 Plt Count 158 Th/cmm (150-400) 02/24/18 06:06 MPV 10.9 fl 02/24/18 06:06 Add Manual Diff YES 02/21/18 06:20 Neutrophils % 75.0 % (40.0-80.0) 02/24/18 06:06 Band Neutrophils % 1 % (0-10) 02/21/18 06:20 Lymphocytes % 14.5 % (20.0-50.0) L 02/24/18 06:06 Monocytes % 6.8 % (2.0-10.0) 02/24/18 06:06 Eosinophils % 3.4 % (0.0-5.0) 02/24/18 06:06 Basophils % 0.3 % (0.0-2.0) 02/24/18 06:06 Neutrophils (Manual) 77 % (40-80) 02/21/18 06:20 Lymphocytes 15 % (20-50) L 02/21/18 06:20 Monocytes 5 % (2-10) 02/21/18 06:20 Eosinophils 2 % (0-5) 02/21/18 06:20 Basophils 0 % (0-3) 02/21/18 06:20 Platelet Estimate ADEQUATE (NORMAL) 02/21/18 06:20 PT 10.8 SECONDS (9.5-11.5) 02/11/18 15:11 INR 1.04 (0.5-1.4) 02/11/18 15:11 PTT (Actin FS) 25.9 SECONDS (26.0-38.0) L 02/12/18 06:00 D-Dimer 2920 ng/mL (100-400) H 02/12/18 06:00 Sodium 141 mEq/L (136-145) 02/23/18 05:40 Potassium 3.6 mEq/L (3.5-5.1) 02/23/18 05:40 Chloride 109 mEq/L (98-107) H 02/23/18 05:40 Carbon Dioxide 24.8 mEq/L (21.0-31.0) 02/23/18 05:40 Anion Gap 10.8 (7.0-16.0) 02/23/18 05:40 BUN 57 mg/dL (7-25) H 02/23/18 05:40 Creatinine 1.0 mg/dL (0.6-1.2) 02/23/18 05:40 Est GFR ( Amer) TNP 02/23/18 05:40 Est GFR (Non-Af Amer) TNP 02/23/18 05:40 BUN/Creatinine Ratio 57.0 02/23/18 05:40 Glucose 84 mg/dL (70-105) 02/23/18 05:40 POC Glucose 95 MG/DL (70 - 105) 02/11/18 21:11 Whole Bld Lactic Acid 1.16 mmol/L (0.60-1.99) 02/11/18 15:21 Calcium 9.4 mg/dL (8.6-10.3) 02/23/18 05:40 Phosphorus 3.5 mg/dL (2.5-5.0) 02/11/18 15:11 Magnesium 2.8 mg/dL (1.9-2.7) H 02/21/18 06:20 Total Bilirubin 1.3 mg/dL (0.3-1.0) H 02/23/18 05:40 AST 39 U/L (13-39) 02/23/18 05:40 ALT 19 U/L (7-52) 02/23/18 05:40 Alkaline Phosphatase 77 U/L (34-104) 02/23/18 05:40 Creatine Kinase 40 U/L (30-223) 02/12/18 06:00 Troponin I < 0.01 ng/mL (0.01-0.05) L 02/11/18 14:14 B-Natriuretic Peptide 317.0 pg/mL (5.0-100.0) H 02/21/18 06:20 Total Protein 6.5 gm/dL (6.0-8.3) 02/23/18 05:40 Albumin 3.3 gm/dL (3.7-5.3) L 02/23/18 05:40 Globulin 3.2 gm/dL 02/23/18 05:40 Albumin/Globulin Ratio 1.0 (1.0-1.8) 02/23/18 05:40 TSH 1.01 uIU/ml (0.34-5.60) 02/11/18 15:11 Urine Source MIDSTREAM 02/15/18 04:38 Urine Color YELLOW 02/15/18 04:38 Urine Clarity HAZY (CLEAR) 02/15/18 04:38 Urine pH 5.5 (4.6 - 8.0) 02/15/18 04:38 Ur Specific [place] 1.020 (1.005-1.030) 02/15/18 04:38 Urine Protein 100 mg/dL (NEGATIVE) H 02/15/18 04:38 Urine Glucose (UA) NEGATIVE mg/dL (NEGATIVE) 02/15/18 04:38 Urine Ketones TRACE mg/dL (NEGATIVE) 02/15/18 04:38 Urine Blood LARGE (NEGATIVE) H 02/15/18 04:38 Urine Nitrate NEGATIVE (NEGATIVE) 02/15/18 04:38 Urine Bilirubin NEGATIVE (NEGATIVE) 02/15/18 04:38 Urine Urobilinogen 0.2 E.U./dL (0.2 - 1.0) 02/15/18 04:38 Ur Leukocyte Esterase SMALL (NEGATIVE) H 02/15/18 04:38 Urine RBC 2-5 /hpf (0-5) 02/15/18 04:38 Urine WBC 6-10 /hpf (0-5) H 02/15/18 04:38 Ur Epithelial Cells MODERATE /lpf (FEW) 02/15/18 04:38 Urine Bacteria FEW /hpf (NONE SEEN) 02/15/18 04:38 Fine Granular Casts 0-2 /lpf (NONE SEEN) H 02/11/18 15:43 Urine Opiates Screen NEGATIVE (NEGATIVE) 02/11/18 15:43 Urine Methadone Screen NEGATIVE (NEGATIVE) 02/11/18 15:43 Ur Barbiturates Screen NEGATIVE (NEGATIVE) 02/11/18 15:43 Ur Tricyclics Screen NEGATIVE (NEGATIVE) 02/11/18 15:43 Ur Phencyclidine Scrn NEGATIVE (NEGATIVE) 02/11/18 15:43 Amphetamines Screen NEGATIVE (NEGATIVE) 02/11/18 15:43 U Methamphetamines Scrn NEGATIVE (NEGATIVE) 02/11/18 15:43 U Benzodiazepines Scrn POSITIVE (NEGATIVE) H 02/11/18 15:43 U Cocaine Metab Screen NEGATIVE (NEGATIVE) 02/11/18 15:43 U Cannabinoids Screen NEGATIVE (NEGATIVE) 02/11/18 15:43 - Physical Exam Vitals and I&O: Vital Signs Temp 98 F 02/24/18 14:00 Pulse 69 02/24/18 14:00 Resp 18 02/24/18 14:00 BP 121/65 02/24/18 14:00 Pulse Ox 91 02/24/18 11:49 Intake & Output 02/23/18 02/24/18 02/24/18 18:59 06:59 18:59 Intake Total 1195 1000 Output Total 750 250 Balance 445 750 Weight (lbs) 65.771 kg 65.771 kg Intake: Intake, IV Amount 995 1000 Sodium Chloride 0.45% 1, 995 1000 000 ml @ 100 mls/hr IV . Q10H [facility] Rx#:[id number] Oral 200 Output: Urine 750 250 Other: # Bowel Movements 0 Weight Source Bedscale Bedscale Active Medications: Current Medications Acetaminophen (Tylenol 650mg Supp) 650 mg RC Q4H PRN PRN Reason: FEVER >100, OR MILD PAIN Stop: 04/13/18 08:40 Albuterol/Ipratropium (Duoneb Neb) 3 ml HHN Q4HRT PRN PRN Reason: Shortness of Breath Stop: 04/13/18 08:40 Alprazolam (Xanax) 0.5 mg PO BID PRN; Protocol PRN Reason: Agitation Stop: 04/24/18 13:10 Last Admin: 02/24/18 00:18 Dose: 0.5 mg Carvedilol (Coreg) 6.25 mg PO BID [facility] Stop: 04/13/18 09:59 Last Admin: 02/24/18 08:59 Dose: Not Given Clopidogrel Bisulfate (Plavix) 75 mg PO DAILY [facility] Stop: 04/13/18 09:59 Last Admin: 02/24/18 08:59 Dose: Not Given Sodium Chloride (Nacl 0.45%) 1,000 mls @ 75 mls/hr IV .[id number] [facility] Stop: 04/25/18 13:05 Lactobacillus Rhamnosus (Culturelle 15b) 1 each PO DAILY [facility] Stop: 04/13/18 13:59 Last Admin: 02/24/18 09:00 Dose: Not Given Levothyroxine Sodium 0.1 mg/ (Levothyroxine Sodium 0.05 mg) 0.15 mg PO QDAC [facility] Stop: 04/13/18 09:59 Last Admin: 02/24/18 06:36 Dose: Not Given Megestrol Acetate (Megace) 200 mg PO DAILY [facility] Stop: 04/13/18 09:59 Last Admin: 02/24/18 09:00 Dose: Not Given Miscellaneous (Vte Chemical Prophylaxis Screen/ Admission) 1 ea PRN PRN PRN Reason: PROTOCOL Stop: 04/13/18 11:55 Miscellaneous (Probiotic Screen) 1 ea PRN PRN PRN Reason: PROTOCOL Stop: 04/13/18 12:31 Miscellaneous (Clinical Monitoring) 1 ea DAILY PRN PRN Reason: RENAL Stop: 04/16/18 15:38 Multivitamins/Vitamin C (Theragran) 1 tab PO DAILY [facility] Stop: 04/13/18 09:59 Last Admin: 02/24/18 09:00 Dose: Not Given Nitroglycerin (Nitrostat) 0.4 mg SL Q5MIN PRN PRN Reason: Chest Pain Quetiapine Fumarate (Seroquel) 100 mg PO BID [facility]; Protocol Stop: 04/24/18 16:59 Vitamin D (Vitamin D3) 2,000 iu PO DAILY [facility] Stop: 04/13/18 09:59 Last Admin: 02/24/18 08:59 Dose: Not Given General: no acute distress, well developed, well nourished HEENT: atraumatic, normocephalic, PERRLA Neck: supple Cardiovascular: S1S2, regular Lungs: clear to auscultation bilaterally, clear to percussion Abdomen: soft, no tender, no distended Extremities: no cyanosis, no clubbing, no edema Neurological: awake, alert, oriented Skin: intact Infectious Disease Assmt/Plan - Problem List Patient Problems: All Active Problems Altered mental status (Acute) R41.82 Anemia (Acute) D64.9 Encephalopathy (Acute) G93.40 FALL WITH LEFT SHOULDER PAIN/CONFUSION (Acute) Facial injury (Acute) H/O fall (Acute) Z91.81 Renal insufficiency (Acute) rt parascapular bruising (Acute) - Assessment Assessment: 1. UTI. ESBL E coli treated. 2. History of fall. 3. Dementia. 4. coronary artery disease.CABG 5. Thyroid disorder. 6. pacemaker placement. 7. CABG 8. Leukocytosis. No fever. - Plan Plan: Check CBC in am DC plan. Nutritional Asmnt/Malnutr-PDOC - Dietary Evaluation Malnutrition Findings (Please click <Entered> for more info): Nutritional Asmnt/Malnutrition Start: 02/15/18 18: 13 Text: Status: Complete Freq: Protocol: Document 02/15/18 18:16 LCHENG (Rec: 02/15/18 18:28 [email or web address]) Nutritional Asmnt/Malnutrition Patient General Information Nutritional Screening Moderate Risk Diagnosis CHF, UTI,sinus Fx Pertinent Medical Hx/Surgical Hx CAD, thyroid disorder, aortic valve replacement, pacemaker, CAD, CABG Subjective Information Pt seen resting in bed at time of visit. Per BOTTOM STAINER, pt was not eating much, refusing to eat. Per nurse, pt is very confused, on restrains. Per EMR, PO intake 0-25%, refuse most of meals. MD ordered renal US per nurse note d/t blood in urine. Current Diet Order/ Nutrition Support [facility] soft chopped, cardiac Pertinent Medications lasix, culturelle, levothyroxine, megace, theragran, seroquel, vit D3 Pertinent Labs 02/15 K 3.4, BUN 47, Cr 1.3, glucose 124 Nutritional Hx/Data Height 1.6 m Height (Calculated Centimeters) 160.0 Current Weight (lbs) 66.224 kg Weight (Calculated Kilograms) 66.2 Weight (Calculated Grams) 77818.5 [place] Body Weight 115 Body Mass Index (BMI) 25.8 Weight Status Overweight GI Symptoms GI Symptoms None Last BM none Difficult in: None Skin Integrity/Comment: intact Current %PO Negligible < 25% Estimated Nutritional Goals BEE in Kcals: Using Current wt Calories/Kcals/Kg 23-27 Kcals Calculated 2444-5636 Protein: Using Current wt Protein g/k.8 Protein Calculated 52 Nutritional Problem 2. Problem Problem inadequate food intake Etiology confusion and poor cognition Signs/Symptoms: PO intake 0-25% 1. Problem Problem altered nutrition related labs Etiology electrolytes imbalance, possible renal function Signs/Symptoms: K 3.4, BUN 47, Cr 1.3 Malnutrition Alert Is there a minimum of two criteria No selected? Query Text:Check all the applicable criteria. A minimum of two criteria are recommended for diagnosis of either severe or non-severe malnutrition. Malnutrition Related to Morbid Obesity Malnutrition related to morbid obesity No Intervention/Recommendation Comments 1. Continue with current diet as ordered. Encourage oral intake and assist with meals as needed. 2. Monitor PO intake, wt, labs and skin integrity 3. F/U as moderate risk in 3-5 days, 02/18-02/20, PO check Expected Outcomes/Goals Expected Outcomes/Goals 1. PO intake to meet at least 75% of nutritional needs. 2. Wt stability, skin to remain intact, labs to approach WNL.
--- NOTE | 2018-02-24 16:30 | Internal Medicine Prog Note ---
Internal Medicine Subjective - Subjective Service Date: 02/24/18 Patient is:: awake, confused Per staff patient has:: tolerating meds Internal Medicine Objective - Results Result Diagrams: 02/24/18 06:06 02/23/18 05:40 Recent Labs: Laboratory Last Values WBC 14.5 Th/cmm (4.8-10.8) H 02/24/18 06:06 RBC 4.89 Mil/cmm (3.80-5.20) 02/24/18 06:06 Hgb 14.0 gm/dL (12-16) 02/24/18 06:06 Hct 41.1 % (41.0-60) 02/24/18 06:06 MCV 84.1 fl (81-100) 02/24/18 06:06 MCH 28.6 pg (27.0-31.0) 02/24/18 06:06 MCHC Differential 34.0 pg (28.0-36.0) 02/24/18 06:06 RDW 16.6 % (11.5-20.0) 02/24/18 06:06 Plt Count 158 Th/cmm (150-400) 02/24/18 06:06 MPV 10.9 fl 02/24/18 06:06 Add Manual Diff YES 02/21/18 06:20 Neutrophils % 75.0 % (40.0-80.0) 02/24/18 06:06 Band Neutrophils % 1 % (0-10) 02/21/18 06:20 Lymphocytes % 14.5 % (20.0-50.0) L 02/24/18 06:06 Monocytes % 6.8 % (2.0-10.0) 02/24/18 06:06 Eosinophils % 3.4 % (0.0-5.0) 02/24/18 06:06 Basophils % 0.3 % (0.0-2.0) 02/24/18 06:06 Neutrophils (Manual) 77 % (40-80) 02/21/18 06:20 Lymphocytes 15 % (20-50) L 02/21/18 06:20 Monocytes 5 % (2-10) 02/21/18 06:20 Eosinophils 2 % (0-5) 02/21/18 06:20 Basophils 0 % (0-3) 02/21/18 06:20 Platelet Estimate ADEQUATE (NORMAL) 02/21/18 06:20 PT 10.8 SECONDS (9.5-11.5) 02/11/18 15:11 INR 1.04 (0.5-1.4) 02/11/18 15:11 PTT (Actin FS) 25.9 SECONDS (26.0-38.0) L 02/12/18 06:00 D-Dimer 2920 ng/mL (100-400) H 02/12/18 06:00 Sodium 141 mEq/L (136-145) 02/23/18 05:40 Potassium 3.6 mEq/L (3.5-5.1) 02/23/18 05:40 Chloride 109 mEq/L (98-107) H 02/23/18 05:40 Carbon Dioxide 24.8 mEq/L (21.0-31.0) 02/23/18 05:40 Anion Gap 10.8 (7.0-16.0) 02/23/18 05:40 BUN 57 mg/dL (7-25) H 02/23/18 05:40 Creatinine 1.0 mg/dL (0.6-1.2) 02/23/18 05:40 Est GFR ( Amer) TNP 02/23/18 05:40 Est GFR (Non-Af Amer) TNP 02/23/18 05:40 BUN/Creatinine Ratio 57.0 02/23/18 05:40 Glucose 84 mg/dL (70-105) 02/23/18 05:40 POC Glucose 95 MG/DL (70 - 105) 02/11/18 21:11 Whole Bld Lactic Acid 1.16 mmol/L (0.60-1.99) 02/11/18 15:21 Calcium 9.4 mg/dL (8.6-10.3) 02/23/18 05:40 Phosphorus 3.5 mg/dL (2.5-5.0) 02/11/18 15:11 Magnesium 2.8 mg/dL (1.9-2.7) H 02/21/18 06:20 Total Bilirubin 1.3 mg/dL (0.3-1.0) H 02/23/18 05:40 AST 39 U/L (13-39) 02/23/18 05:40 ALT 19 U/L (7-52) 02/23/18 05:40 Alkaline Phosphatase 77 U/L (34-104) 02/23/18 05:40 Creatine Kinase 40 U/L (30-223) 02/12/18 06:00 Troponin I < 0.01 ng/mL (0.01-0.05) L 02/11/18 14:14 B-Natriuretic Peptide 317.0 pg/mL (5.0-100.0) H 02/21/18 06:20 Total Protein 6.5 gm/dL (6.0-8.3) 02/23/18 05:40 Albumin 3.3 gm/dL (3.7-5.3) L 02/23/18 05:40 Globulin 3.2 gm/dL 02/23/18 05:40 Albumin/Globulin Ratio 1.0 (1.0-1.8) 02/23/18 05:40 TSH 1.01 uIU/ml (0.34-5.60) 02/11/18 15:11 Urine Source MIDSTREAM 02/15/18 04:38 Urine Color YELLOW 02/15/18 04:38 Urine Clarity HAZY (CLEAR) 02/15/18 04:38 Urine pH 5.5 (4.6 - 8.0) 02/15/18 04:38 Ur Specific [place] 1.020 (1.005-1.030) 02/15/18 04:38 Urine Protein 100 mg/dL (NEGATIVE) H 02/15/18 04:38 Urine Glucose (UA) NEGATIVE mg/dL (NEGATIVE) 02/15/18 04:38 Urine Ketones TRACE mg/dL (NEGATIVE) 02/15/18 04:38 Urine Blood LARGE (NEGATIVE) H 02/15/18 04:38 Urine Nitrate NEGATIVE (NEGATIVE) 02/15/18 04:38 Urine Bilirubin NEGATIVE (NEGATIVE) 02/15/18 04:38 Urine Urobilinogen 0.2 E.U./dL (0.2 - 1.0) 02/15/18 04:38 Ur Leukocyte Esterase SMALL (NEGATIVE) H 02/15/18 04:38 Urine RBC 2-5 /hpf (0-5) 02/15/18 04:38 Urine WBC 6-10 /hpf (0-5) H 02/15/18 04:38 Ur Epithelial Cells MODERATE /lpf (FEW) 02/15/18 04:38 Urine Bacteria FEW /hpf (NONE SEEN) 02/15/18 04:38 Fine Granular Casts 0-2 /lpf (NONE SEEN) H 02/11/18 15:43 Urine Opiates Screen NEGATIVE (NEGATIVE) 02/11/18 15:43 Urine Methadone Screen NEGATIVE (NEGATIVE) 02/11/18 15:43 Ur Barbiturates Screen NEGATIVE (NEGATIVE) 02/11/18 15:43 Ur Tricyclics Screen NEGATIVE (NEGATIVE) 02/11/18 15:43 Ur Phencyclidine Scrn NEGATIVE (NEGATIVE) 02/11/18 15:43 Amphetamines Screen NEGATIVE (NEGATIVE) 02/11/18 15:43 U Methamphetamines Scrn NEGATIVE (NEGATIVE) 02/11/18 15:43 U Benzodiazepines Scrn POSITIVE (NEGATIVE) H 02/11/18 15:43 U Cocaine Metab Screen NEGATIVE (NEGATIVE) 02/11/18 15:43 U Cannabinoids Screen NEGATIVE (NEGATIVE) 02/11/18 15:43 - Physical Exam Vitals and I&O: Vital Signs Temp 97.2 F 02/24/18 16:00 Pulse 72 02/24/18 16:00 Resp 18 02/24/18 16:00 BP 128/72 02/24/18 16:00 Pulse Ox 94 02/24/18 15:53 Intake & Output 02/23/18 02/24/18 02/24/18 18:59 06:59 18:59 Intake Total 1195 1000 Output Total 750 250 Balance 445 750 Weight (lbs) 145 lb 145 lb Intake: Intake, IV Amount 995 1000 Sodium Chloride 0.45% 1, 995 1000 000 ml @ 100 mls/hr IV . Q10H [facility] Rx#:[id number] Oral 200 Output: Urine 750 250 Other: # Bowel Movements 0 Weight Source Bedscale Bedscale Active Medications: Current Medications Acetaminophen (Tylenol 650mg Supp) 650 mg RC Q4H PRN PRN Reason: FEVER >100, OR MILD PAIN Stop: 04/13/18 08:40 Albuterol/Ipratropium (Duoneb Neb) 3 ml HHN Q4HRT PRN PRN Reason: Shortness of Breath Stop: 04/13/18 08:40 Alprazolam (Xanax) 0.5 mg PO BID PRN; Protocol PRN Reason: Agitation Stop: 04/24/18 13:10 Last Admin: 02/24/18 00:18 Dose: 0.5 mg Carvedilol (Coreg) 6.25 mg PO BID [facility] Stop: 04/13/18 09:59 Last Admin: 02/24/18 16:09 Dose: Not Given Clopidogrel Bisulfate (Plavix) 75 mg PO DAILY [facility] Stop: 04/13/18 09:59 Last Admin: 02/24/18 08:59 Dose: Not Given Sodium Chloride (Nacl 0.45%) 1,000 mls @ 75 mls/hr IV .[id number] [facility] Stop: 04/25/18 13:05 Lactobacillus Rhamnosus (Culturelle 15b) 1 each PO DAILY [facility] Stop: 04/13/18 13:59 Last Admin: 02/24/18 09:00 Dose: Not Given Levothyroxine Sodium 0.1 mg/ (Levothyroxine Sodium 0.05 mg) 0.15 mg PO QDAC [facility] Stop: 04/13/18 09:59 Last Admin: 02/24/18 06:36 Dose: Not Given Megestrol Acetate (Megace) 200 mg PO DAILY [facility] Stop: 04/13/18 09:59 Last Admin: 02/24/18 09:00 Dose: Not Given Miscellaneous (Vte Chemical Prophylaxis Screen/ Admission) 1 ea PRN PRN PRN Reason: PROTOCOL Stop: 04/13/18 11:55 Miscellaneous (Probiotic Screen) 1 ea PRN PRN PRN Reason: PROTOCOL Stop: 04/13/18 12:31 Miscellaneous (Clinical Monitoring) 1 ea DAILY PRN PRN Reason: RENAL Stop: 04/16/18 15:38 Multivitamins/Vitamin C (Theragran) 1 tab PO DAILY [facility] Stop: 04/13/18 09:59 Last Admin: 02/24/18 09:00 Dose: Not Given Nitroglycerin (Nitrostat) 0.4 mg SL Q5MIN PRN PRN Reason: Chest Pain Quetiapine Fumarate (Seroquel) 100 mg PO BID [facility]; Protocol Stop: 04/24/18 16:59 Vitamin D (Vitamin D3) 2,000 iu PO DAILY [facility] Stop: 04/13/18 09:59 Last Admin: 02/24/18 08:59 Dose: Not Given General: weak, alert HEENT: NC/AT, PERRLA Neck: Supple Cardiovascular: RRR, without murmur Abdomen: soft Extremities: excoriation Neurological: alert, unable to follow command Internal Medicine Assmt/Plan - Assessment Assessment: altered mental status encephalopathy hx fall facial injury acute renal insufficiency anemia right parascapular bruising - Plan Plan: dc planning fall precautions psych follow up continue current plan of care Nutritional Asmnt/Malnutr-PDOC - Dietary Evaluation Malnutrition Findings (Please click <Entered> for more info): Nutritional Asmnt/Malnutrition Start: 02/15/18 18: 13 Text: Status: Complete Freq: Protocol: Document 02/15/18 18:16 LCHENG (Rec: 02/15/18 18:28 [email or web address]) Nutritional Asmnt/Malnutrition Patient General Information Nutritional Screening Moderate Risk Diagnosis CHF, UTI,sinus Fx Pertinent Medical Hx/Surgical Hx CAD, thyroid disorder, aortic valve replacement, pacemaker, CAD, CABG Subjective Information Pt seen resting in bed at time of visit. Per UNHAIRER, pt was not eating much, refusing to eat. Per nurse, pt is very confused, on restrains. Per EMR, PO intake 0-25%, refuse most of meals. ordered renal US per nurse note d/t blood in urine. Current Diet Order/ Nutrition Support [facility] soft chopped, cardiac Pertinent Medications lasix, culturelle, levothyroxine, megace, theragran, seroquel, vit D3 Pertinent Labs 02/15 K 3.4, BUN 47, Cr 1.3, glucose 124 Nutritional Hx/Data Height 5 ft 3 in Height (Calculated Centimeters) 160.0 Current Weight (lbs) 146 lb Weight (Calculated Kilograms) 66.2 Weight (Calculated Grams) 03820.5 [place] Body Weight 115 Body Mass Index (BMI) 25.8 Weight Status Overweight GI Symptoms GI Symptoms None Last BM none Difficult in: None Skin Integrity/Comment: intact Current %PO Negligible < 25% Estimated Nutritional Goals BEE in Kcals: Using Current wt Calories/Kcals/Kg 23-27 Kcals Calculated 7377-4781 Protein: Using Current wt Protein g/k.8 Protein Calculated 52 Nutritional Problem 2. Problem Problem inadequate food intake Etiology confusion and poor cognition Signs/Symptoms: PO intake 0-25% 1. Problem Problem altered nutrition related labs Etiology electrolytes imbalance, possible renal function Signs/Symptoms: K 3.4, BUN 47, Cr 1.3 Malnutrition Alert Is there a minimum of two criteria No selected? Query Text:Check all the applicable criteria. A minimum of two criteria are recommended for diagnosis of either severe or non-severe malnutrition. Malnutrition Related to Morbid Obesity Malnutrition related to morbid obesity No Intervention/Recommendation Comments 1. Continue with current diet as ordered. Encourage oral intake and assist with meals as needed. 2. Monitor PO intake, wt, labs and skin integrity 3. F/U as moderate risk in 3-5 days, 02/18-02/20, PO check Expected Outcomes/Goals Expected Outcomes/Goals 1. PO intake to meet at least 75% of nutritional needs. 2. Wt stability, skin to remain intact, labs to approach WNL.
[2018-02-25 07:20] LABS: % BASOPHILS 0.1 % (0.0-2.0); % EOSINOPHILS 2.9 % (0.0-5.0); % LYMPHOCYTES 16.3 % (20.0-50.0); % NEUTROPHILS 72.7 % (40.0-80.0); EOSINOPHILE ABSOLUTE 0.4 Th/cmm (0.1-0.4); HEMATOCRIT 39.5 % (41.0-60); HEMOGLOBIN 13.5 gm/dL (12-16); LYMPHOCYTE ABSOLUTE 2.1 Th/cmm (1.5-3.0); MEAN CELL VOLUME 84.7 fl (81-100); MEAN CORPUSCULAR HEMOGLOBIN 28.8 pg (27.0-31.0); MEAN CORPUSCULAR HGB CONC 34.1 pg (28.0-36.0); MEAN PLATELET VOLUME 12.7 fl; NEUTROPHILE ABSOLUTE 9.1 Th/cmm (1.8-8.0); PLATELET COUNT 169 Th/cmm (150-400); RED BLOOD COUNT 4.66 Mil/cmm (3.80-5.20); WHITE BLOOD COUNT 12.6 Th/cmm (4.8-10.8)
[2018-02-25 07:22] LABS: ALBUMIN 3.2 gm/dL (3.7-5.3); ALKALINE PHOSPHATASE 82 U/L (34-104); ANION GAP 11.1 (7.0-16.0); BILIRUBIN,TOTAL 1.3 mg/dL (0.3-1.0); BUN - UREA NITROGEN 34 mg/dL (7-25); CALCIUM SERUM 9.6 mg/dL (8.6-10.3); CARBON DIOXIDE 23.4 mEq/L (21.0-31.0); CHLORIDE 106 mEq/L (98-107); GLUCOSE 79 mg/dL (70-105); POTASSIUM SERUM 3.5 mEq/L (3.5-5.1); SGOT 40 U/L (13-39); SGPT/ALT 17 U/L (7-52); SODIUM SERUM 137 mEq/L (136-145); TOTAL PROTEIN,SERUM 6.4 gm/dL (6.0-8.3)
[2018-02-25] MEDS: Vitamin D3 2,000 IU SGL PO SCH (09:18)
[2018-02-25] MEDS: Multivitamin Tab PO SCH (09:18)
[2018-02-25] MEDS: Lactobacillus Rhamnosus GG 15 Billion CFU CAP.SPRINK PO SCH (09:18)
--- NOTE | 2018-02-25 13:25 | Internal Medicine Prog Note ---
Internal Medicine Subjective - Subjective Service Date: 02/25/18 Patient is:: awake, confused Per staff patient has:: tolerating meds Internal Medicine Objective - Results Result Diagrams: 02/25/18 05:55 02/25/18 05:55 Recent Labs: Laboratory Last Values WBC 12.6 Th/cmm (4.8-10.8) H 02/25/18 05:55 RBC 4.66 Mil/cmm (3.80-5.20) 02/25/18 05:55 Hgb 13.5 gm/dL (12-16) 02/25/18 05:55 Hct 39.5 % (41.0-60) L 02/25/18 05:55 MCV 84.7 fl (81-100) 02/25/18 05:55 MCH 28.8 pg (27.0-31.0) 02/25/18 05:55 MCHC Differential 34.1 pg (28.0-36.0) 02/25/18 05:55 RDW 17.0 % (11.5-20.0) 02/25/18 05:55 Plt Count 169 Th/cmm (150-400) 02/25/18 05:55 MPV 12.7 fl 02/25/18 05:55 Add Manual Diff YES 02/21/18 06:20 Neutrophils % 72.7 % (40.0-80.0) 02/25/18 05:55 Band Neutrophils % 1 % (0-10) 02/21/18 06:20 Lymphocytes % 16.3 % (20.0-50.0) L 02/25/18 05:55 Monocytes % 8.0 % (2.0-10.0) 02/25/18 05:55 Eosinophils % 2.9 % (0.0-5.0) 02/25/18 05:55 Basophils % 0.1 % (0.0-2.0) 02/25/18 05:55 Neutrophils (Manual) 77 % (40-80) 02/21/18 06:20 Lymphocytes 15 % (20-50) L 02/21/18 06:20 Monocytes 5 % (2-10) 02/21/18 06:20 Eosinophils 2 % (0-5) 02/21/18 06:20 Basophils 0 % (0-3) 02/21/18 06:20 Platelet Estimate ADEQUATE (NORMAL) 02/21/18 06:20 PT 10.8 SECONDS (9.5-11.5) 02/11/18 15:11 INR 1.04 (0.5-1.4) 02/11/18 15:11 PTT (Actin FS) 25.9 SECONDS (26.0-38.0) L 02/12/18 06:00 D-Dimer 2920 ng/mL (100-400) H 02/12/18 06:00 Sodium 137 mEq/L (136-145) 02/25/18 05:55 Potassium 3.5 mEq/L (3.5-5.1) 02/25/18 05:55 Chloride 106 mEq/L (98-107) 02/25/18 05:55 Carbon Dioxide 23.4 mEq/L (21.0-31.0) 02/25/18 05:55 Anion Gap 11.1 (7.0-16.0) 02/25/18 05:55 BUN 34 mg/dL (7-25) H 02/25/18 05:55 Creatinine 1.0 mg/dL (0.6-1.2) 02/25/18 05:55 Est GFR ( Amer) TNP 02/25/18 05:55 Est GFR (Non-Af Amer) TNP 02/25/18 05:55 BUN/Creatinine Ratio 34.0 02/25/18 05:55 Glucose 79 mg/dL (70-105) 02/25/18 05:55 POC Glucose 95 MG/DL (70 - 105) 02/11/18 21:11 Whole Bld Lactic Acid 1.16 mmol/L (0.60-1.99) 02/11/18 15:21 Calcium 9.6 mg/dL (8.6-10.3) 02/25/18 05:55 Phosphorus 3.5 mg/dL (2.5-5.0) 02/11/18 15:11 Magnesium 2.8 mg/dL (1.9-2.7) H 02/21/18 06:20 Total Bilirubin 1.3 mg/dL (0.3-1.0) H 02/25/18 05:55 AST 40 U/L (13-39) H 02/25/18 05:55 ALT 17 U/L (7-52) 02/25/18 05:55 Alkaline Phosphatase 82 U/L (34-104) 02/25/18 05:55 Creatine Kinase 40 U/L (30-223) 02/12/18 06:00 Troponin I < 0.01 ng/mL (0.01-0.05) L 02/11/18 14:14 B-Natriuretic Peptide 317.0 pg/mL (5.0-100.0) H 02/21/18 06:20 Total Protein 6.4 gm/dL (6.0-8.3) 02/25/18 05:55 Albumin 3.2 gm/dL (3.7-5.3) L 02/25/18 05:55 Globulin 3.2 gm/dL 02/25/18 05:55 Albumin/Globulin Ratio 1.0 (1.0-1.8) 02/25/18 05:55 TSH 1.01 uIU/ml (0.34-5.60) 02/11/18 15:11 Urine Source MIDSTREAM 02/15/18 04:38 Urine Color YELLOW 02/15/18 04:38 Urine Clarity HAZY (CLEAR) 02/15/18 04:38 Urine pH 5.5 (4.6 - 8.0) 02/15/18 04:38 Ur Specific [place] 1.020 (1.005-1.030) 02/15/18 04:38 Urine Protein 100 mg/dL (NEGATIVE) H 02/15/18 04:38 Urine Glucose (UA) NEGATIVE mg/dL (NEGATIVE) 02/15/18 04:38 Urine Ketones TRACE mg/dL (NEGATIVE) 02/15/18 04:38 Urine Blood LARGE (NEGATIVE) H 02/15/18 04:38 Urine Nitrate NEGATIVE (NEGATIVE) 02/15/18 04:38 Urine Bilirubin NEGATIVE (NEGATIVE) 02/15/18 04:38 Urine Urobilinogen 0.2 E.U./dL (0.2 - 1.0) 02/15/18 04:38 Ur Leukocyte Esterase SMALL (NEGATIVE) H 02/15/18 04:38 Urine RBC 2-5 /hpf (0-5) 02/15/18 04:38 Urine WBC 6-10 /hpf (0-5) H 02/15/18 04:38 Ur Epithelial Cells MODERATE /lpf (FEW) 02/15/18 04:38 Urine Bacteria FEW /hpf (NONE SEEN) 02/15/18 04:38 Fine Granular Casts 0-2 /lpf (NONE SEEN) H 02/11/18 15:43 Urine Opiates Screen NEGATIVE (NEGATIVE) 02/11/18 15:43 Urine Methadone Screen NEGATIVE (NEGATIVE) 02/11/18 15:43 Ur Barbiturates Screen NEGATIVE (NEGATIVE) 02/11/18 15:43 Ur Tricyclics Screen NEGATIVE (NEGATIVE) 02/11/18 15:43 Ur Phencyclidine Scrn NEGATIVE (NEGATIVE) 02/11/18 15:43 Amphetamines Screen NEGATIVE (NEGATIVE) 02/11/18 15:43 U Methamphetamines Scrn NEGATIVE (NEGATIVE) 02/11/18 15:43 U Benzodiazepines Scrn POSITIVE (NEGATIVE) H 02/11/18 15:43 U Cocaine Metab Screen NEGATIVE (NEGATIVE) 02/11/18 15:43 U Cannabinoids Screen NEGATIVE (NEGATIVE) 02/11/18 15:43 - Physical Exam Vitals and I&O: Vital Signs Temp 97.8 F 02/25/18 12:10 Pulse 81 02/25/18 12:10 Resp 18 02/25/18 12:10 BP 143/78 02/25/18 12:10 Pulse Ox 98 02/25/18 12:10 Intake & Output 02/24/18 02/25/18 02/25/18 18:59 06:59 18:59 Intake Total 50 50 Output Total 600 250 Balance -550 -200 Weight (lbs) 148 lb 145 lb 8 oz Intake: Oral 50 50 Output: Urine 600 250 Other: # Bowel Movements 0 Stool Characteristics Soft Weight Source Bedscale Bedscale Active Medications: Current Medications Acetaminophen (Tylenol 650mg Supp) 650 mg RC Q4H PRN PRN Reason: FEVER >100, OR MILD PAIN Stop: 04/13/18 08:40 Albuterol/Ipratropium (Duoneb Neb) 3 ml HHN Q4HRT PRN PRN Reason: Shortness of Breath Stop: 04/13/18 08:40 Alprazolam (Xanax) 0.25 mg PO BID PRN; Protocol PRN Reason: Agitation Stop: 04/24/18 16:59 Carvedilol (Coreg) 6.25 mg PO BID [facility] Stop: 04/13/18 09:59 Last Admin: 02/25/18 09:18 Dose: 6.25 mg Clopidogrel Bisulfate (Plavix) 75 mg PO DAILY [facility] Stop: 04/13/18 09:59 Last Admin: 02/25/18 09:18 Dose: 75 mg Sodium Chloride (Nacl 0.45%) 1,000 mls @ 75 mls/hr IV .[id number] [facility] Stop: 04/25/18 13:05 Last Admin: 02/24/18 16:43 Dose: 75 mls/hr Lactobacillus Rhamnosus (Culturelle 15b) 1 each PO DAILY [facility] Stop: 04/13/18 13:59 Last Admin: 02/25/18 09:18 Dose: 1 each Levothyroxine Sodium 0.1 mg/ (Levothyroxine Sodium 0.05 mg) 0.15 mg PO QDAC [facility] Stop: 04/13/18 09:59 Last Admin: 02/25/18 06:30 Dose: Not Given Megestrol Acetate (Megace) 200 mg PO DAILY [facility] Stop: 04/13/18 09:59 Last Admin: 02/25/18 09:32 Dose: Not Given Miscellaneous (Vte Chemical Prophylaxis Screen/ Admission) 1 ea PRN PRN PRN Reason: PROTOCOL Stop: 04/13/18 11:55 Miscellaneous (Probiotic Screen) 1 ea PRN PRN PRN Reason: PROTOCOL Stop: 04/13/18 12:31 Miscellaneous (Clinical Monitoring) 1 ea MC DAILY PRN PRN Reason: RENAL Stop: 04/16/18 15:38 Multivitamins/Vitamin C (Theragran) 1 tab PO DAILY [facility] Stop: 04/13/18 09:59 Last Admin: 02/25/18 09:18 Dose: 1 tab Nitroglycerin (Nitrostat) 0.4 mg SL Q5MIN PRN PRN Reason: Chest Pain Quetiapine Fumarate (Seroquel) 100 mg PO BID [facility]; Protocol Stop: 04/26/18 08:59 Last Admin: 02/25/18 09:18 Dose: 100 mg Vitamin D (Vitamin D3) 2,000 iu PO DAILY [facility] Stop: 04/13/18 09:59 Last Admin: 02/25/18 09:18 Dose: 2,000 iu General: weak, alert HEENT: NC/AT, PERRLA Neck: Supple Cardiovascular: RRR, without murmur Abdomen: soft Extremities: excoriation Neurological: alert, unable to follow command Internal Medicine Assmt/Plan - Assessment Assessment: altered mental status encephalopathy hx fall facial injury acute renal insufficiency anemia right parascapular bruising - Plan Plan: dc planning with home health fall precautions psych follow up continue current plan of care Nutritional Asmnt/Malnutr-PDOC - Dietary Evaluation Malnutrition Findings (Please click <Entered> for more info): Nutritional Asmnt/Malnutrition Start: 02/15/18 18: 13 Text: Status: Complete Freq: Protocol: Document 02/15/18 18:16 LCHENG (Rec: 02/15/18 18:28 [email or web address]) Nutritional Asmnt/Malnutrition Patient General Information Nutritional Screening Moderate Risk Diagnosis CHF, UTI,sinus Fx Pertinent Medical Hx/Surgical Hx CAD, thyroid disorder, aortic valve replacement, pacemaker, CAD, CABG Subjective Information Pt seen resting in bed at time of visit. Per HEAT TRANSFER TECHNICIAN, pt was not eating much, refusing to eat. Per nurse, pt is very confused, on restrains. Per EMR, PO intake 0-25%, refuse most of meals. MD ordered renal US per nurse note d/t blood in urine. Current Diet Order/ Nutrition Support mech soft chopped, cardiac Pertinent Medications lasix, culturelle, levothyroxine, megace, theragran, seroquel, vit D3 Pertinent Labs 02/15 K 3.4, BUN 47, Cr 1.3, glucose 124 Nutritional Hx/Data Height 5 ft 3 in Height (Calculated Centimeters) 160.0 Current Weight (lbs) 146 lb Weight (Calculated Kilograms) 66.2 Weight (Calculated Grams) 53525.5 [place] Body Weight 115 Body Mass Index (BMI) 25.8 Weight Status Overweight GI Symptoms GI Symptoms None Last BM none Difficult in: None Skin Integrity/Comment: intact Current %PO Negligible < 25% Estimated Nutritional Goals BEE in Kcals: Using Current wt Calories/Kcals/Kg 23-27 Kcals Calculated 0329-4598 Protein: Using Current wt Protein g/k.8 Protein Calculated 52 Nutritional Problem 2. Problem Problem inadequate food intake Etiology confusion and poor cognition Signs/Symptoms: PO intake 0-25% 1. Problem Problem altered nutrition related labs Etiology electrolytes imbalance, possible renal function Signs/Symptoms: K 3.4, BUN 47, Cr 1.3 Malnutrition Alert Is there a minimum of two criteria No selected? Query Text:Check all the applicable criteria. A minimum of two criteria are recommended for diagnosis of either severe or non-severe malnutrition. Malnutrition Related to Morbid Obesity Malnutrition related to morbid obesity No Intervention/Recommendation Comments 1. Continue with current diet as ordered. Encourage oral intake and assist with meals as needed. 2. Monitor PO intake, wt, labs and skin integrity 3. F/U as moderate risk in 3-5 days, 02/18-02/20, PO check Expected Outcomes/Goals Expected Outcomes/Goals 1. PO intake to meet at least 75% of nutritional needs. 2. Wt stability, skin to remain intact, labs to approach WNL.
[2018-02-25] MEDS: Sodium Chloride 0.45% 1,000 ML IV SCH (21:11)
--- NOTE | 2018-02-26 03:33 | Infectious Disease Prog Note ---
Infectious Disease Subjective - Review of Systems Service Date: 02/26/18 Subjective: Doing well, no fever. Infectious Disease Objective - Results Result Diagrams: 02/25/18 05:55 02/25/18 05:55 Recent Labs: Laboratory Last Values WBC 12.6 Th/cmm (4.8-10.8) H 02/25/18 05:55 RBC 4.66 Mil/cmm (3.80-5.20) 02/25/18 05:55 Hgb 13.5 gm/dL (12-16) 02/25/18 05:55 Hct 39.5 % (41.0-60) L 02/25/18 05:55 MCV 84.7 fl (81-100) 02/25/18 05:55 MCH 28.8 pg (27.0-31.0) 02/25/18 05:55 MCHC Differential 34.1 pg (28.0-36.0) 02/25/18 05:55 RDW 17.0 % (11.5-20.0) 02/25/18 05:55 Plt Count 169 Th/cmm (150-400) 02/25/18 05:55 MPV 12.7 fl 02/25/18 05:55 Add Manual Diff YES 02/21/18 06:20 Neutrophils % 72.7 % (40.0-80.0) 02/25/18 05:55 Band Neutrophils % 1 % (0-10) 02/21/18 06:20 Lymphocytes % 16.3 % (20.0-50.0) L 02/25/18 05:55 Monocytes % 8.0 % (2.0-10.0) 02/25/18 05:55 Eosinophils % 2.9 % (0.0-5.0) 02/25/18 05:55 Basophils % 0.1 % (0.0-2.0) 02/25/18 05:55 Neutrophils (Manual) 77 % (40-80) 02/21/18 06:20 Lymphocytes 15 % (20-50) L 02/21/18 06:20 Monocytes 5 % (2-10) 02/21/18 06:20 Eosinophils 2 % (0-5) 02/21/18 06:20 Basophils 0 % (0-3) 02/21/18 06:20 Platelet Estimate ADEQUATE (NORMAL) 02/21/18 06:20 PT 10.8 SECONDS (9.5-11.5) 02/11/18 15:11 INR 1.04 (0.5-1.4) 02/11/18 15:11 PTT (Actin FS) 25.9 SECONDS (26.0-38.0) L 02/12/18 06:00 D-Dimer 2920 ng/mL (100-400) H 02/12/18 06:00 Sodium 137 mEq/L (136-145) 02/25/18 05:55 Potassium 3.5 mEq/L (3.5-5.1) 02/25/18 05:55 Chloride 106 mEq/L (98-107) 02/25/18 05:55 Carbon Dioxide 23.4 mEq/L (21.0-31.0) 02/25/18 05:55 Anion Gap 11.1 (7.0-16.0) 02/25/18 05:55 BUN 34 mg/dL (7-25) H 02/25/18 05:55 Creatinine 1.0 mg/dL (0.6-1.2) 02/25/18 05:55 Est GFR ( Amer) TNP 02/25/18 05:55 Est GFR (Non-Af Amer) TNP 02/25/18 05:55 BUN/Creatinine Ratio 34.0 02/25/18 05:55 Glucose 79 mg/dL (70-105) 02/25/18 05:55 POC Glucose 95 MG/DL (70 - 105) 02/11/18 21:11 Whole Bld Lactic Acid 1.16 mmol/L (0.60-1.99) 02/11/18 15:21 Calcium 9.6 mg/dL (8.6-10.3) 02/25/18 05:55 Phosphorus 3.5 mg/dL (2.5-5.0) 02/11/18 15:11 Magnesium 2.8 mg/dL (1.9-2.7) H 02/21/18 06:20 Total Bilirubin 1.3 mg/dL (0.3-1.0) H 02/25/18 05:55 AST 40 U/L (13-39) H 02/25/18 05:55 ALT 17 U/L (7-52) 02/25/18 05:55 Alkaline Phosphatase 82 U/L (34-104) 02/25/18 05:55 Creatine Kinase 40 U/L (30-223) 02/12/18 06:00 Troponin I < 0.01 ng/mL (0.01-0.05) L 02/11/18 14:14 B-Natriuretic Peptide 317.0 pg/mL (5.0-100.0) H 02/21/18 06:20 Total Protein 6.4 gm/dL (6.0-8.3) 02/25/18 05:55 Albumin 3.2 gm/dL (3.7-5.3) L 02/25/18 05:55 Globulin 3.2 gm/dL 02/25/18 05:55 Albumin/Globulin Ratio 1.0 (1.0-1.8) 02/25/18 05:55 TSH 1.01 uIU/ml (0.34-5.60) 02/11/18 15:11 Urine Source MIDSTREAM 02/15/18 04:38 Urine Color YELLOW 02/15/18 04:38 Urine Clarity HAZY (CLEAR) 02/15/18 04:38 Urine pH 5.5 (4.6 - 8.0) 02/15/18 04:38 Ur Specific [place] 1.020 (1.005-1.030) 02/15/18 04:38 Urine Protein 100 mg/dL (NEGATIVE) H 02/15/18 04:38 Urine Glucose (UA) NEGATIVE mg/dL (NEGATIVE) 02/15/18 04:38 Urine Ketones TRACE mg/dL (NEGATIVE) 02/15/18 04:38 Urine Blood LARGE (NEGATIVE) H 02/15/18 04:38 Urine Nitrate NEGATIVE (NEGATIVE) 02/15/18 04:38 Urine Bilirubin NEGATIVE (NEGATIVE) 02/15/18 04:38 Urine Urobilinogen 0.2 E.U./dL (0.2 - 1.0) 02/15/18 04:38 Ur Leukocyte Esterase SMALL (NEGATIVE) H 02/15/18 04:38 Urine RBC 2-5 /hpf (0-5) 02/15/18 04:38 Urine WBC 6-10 /hpf (0-5) H 02/15/18 04:38 Ur Epithelial Cells MODERATE /lpf (FEW) 02/15/18 04:38 Urine Bacteria FEW /hpf (NONE SEEN) 02/15/18 04:38 Fine Granular Casts 0-2 /lpf (NONE SEEN) H 02/11/18 15:43 Urine Opiates Screen NEGATIVE (NEGATIVE) 02/11/18 15:43 Urine Methadone Screen NEGATIVE (NEGATIVE) 02/11/18 15:43 Ur Barbiturates Screen NEGATIVE (NEGATIVE) 02/11/18 15:43 Ur Tricyclics Screen NEGATIVE (NEGATIVE) 02/11/18 15:43 Ur Phencyclidine Scrn NEGATIVE (NEGATIVE) 02/11/18 15:43 Amphetamines Screen NEGATIVE (NEGATIVE) 02/11/18 15:43 U Methamphetamines Scrn NEGATIVE (NEGATIVE) 02/11/18 15:43 U Benzodiazepines Scrn POSITIVE (NEGATIVE) H 02/11/18 15:43 U Cocaine Metab Screen NEGATIVE (NEGATIVE) 02/11/18 15:43 U Cannabinoids Screen NEGATIVE (NEGATIVE) 02/11/18 15:43 - Physical Exam Vitals and I&O: Vital Signs Temp 96.5 F 02/26/18 00:00 Pulse 84 02/26/18 00:00 Resp 18 02/26/18 00:00 BP 128/45 02/26/18 00:00 Pulse Ox 92 02/26/18 00:00 Intake & Output 02/25/18 02/25/18 02/26/18 06:59 18:59 06:59 Intake Total 1050 200 Output Total 250 350 Balance 800 -150 Weight (lbs) 65.998 kg 65.998 kg Intake: Intake, IV Amount 1000 Sodium Chloride 0.45% 1, 1000 000 ml @ 75 mls/hr IV . [id number] [facility] Rx#:[id number] Oral 50 200 Output: Urine 250 350 Other: # Bowel Movements 0 Stool Characteristics Soft Weight Source Bedscale Bedscale Active Medications: Current Medications Acetaminophen (Tylenol 650mg Supp) 650 mg RC Q4H PRN PRN Reason: FEVER >100, OR MILD PAIN Stop: 04/13/18 08:40 Albuterol/Ipratropium (Duoneb Neb) 3 ml HHN Q4HRT PRN PRN Reason: Shortness of Breath Stop: 04/13/18 08:40 Alprazolam (Xanax) 0.25 mg PO BID PRN; Protocol PRN Reason: Agitation Stop: 04/24/18 16:59 Carvedilol (Coreg) 6.25 mg PO BID [facility] Stop: 04/13/18 09:59 Last Admin: 02/25/18 16:30 Dose: 6.25 mg Clopidogrel Bisulfate (Plavix) 75 mg PO DAILY [facility] Stop: 04/13/18 09:59 Last Admin: 02/25/18 09:18 Dose: 75 mg Sodium Chloride (Nacl 0.45%) 1,000 mls @ 75 mls/hr IV .[id number] [facility] Stop: 04/25/18 13:05 Last Admin: 02/25/18 21:11 Dose: 75 mls/hr Lactobacillus Rhamnosus (Culturelle 15b) 1 each PO DAILY [facility] Stop: 04/13/18 13:59 Last Admin: 02/25/18 09:18 Dose: 1 each Levothyroxine Sodium 0.1 mg/ (Levothyroxine Sodium 0.05 mg) 0.15 mg PO QDAC [facility] Stop: 04/13/18 09:59 Last Admin: 02/25/18 06:30 Dose: Not Given Megestrol Acetate (Megace) 200 mg PO DAILY [facility] Stop: 04/13/18 09:59 Last Admin: 02/25/18 09:32 Dose: Not Given Miscellaneous (Vte Chemical Prophylaxis Screen/ Admission) 1 ea PRN PRN PRN Reason: PROTOCOL Stop: 04/13/18 11:55 Miscellaneous (Probiotic Screen) 1 ea PRN PRN PRN Reason: PROTOCOL Stop: 04/13/18 12:31 Miscellaneous (Clinical Monitoring) 1 ea DAILY PRN PRN Reason: RENAL Stop: 04/16/18 15:38 Multivitamins/Vitamin C (Theragran) 1 tab PO DAILY [facility] Stop: 04/13/18 09:59 Last Admin: 02/25/18 09:18 Dose: 1 tab Nitroglycerin (Nitrostat) 0.4 mg SL Q5MIN PRN PRN Reason: Chest Pain Quetiapine Fumarate (Seroquel) 100 mg PO BID [facility]; Protocol Stop: 04/26/18 08:59 Last Admin: 02/25/18 16:30 Dose: 100 mg Vitamin D (Vitamin D3) 2,000 iu PO DAILY [facility] Stop: 04/13/18 09:59 Last Admin: 02/25/18 09:18 Dose: 2,000 iu General: no acute distress, well developed, well nourished HEENT: atraumatic, normocephalic, PERRLA Neck: supple, no thyromegaly Cardiovascular: S1S2, regular Lungs: clear to auscultation bilaterally, clear to percussion Abdomen: soft, no tender, no distended, no mass, no hepatomegaly Extremities: no cyanosis, no clubbing, no edema Neurological: awake, alert, other (Confused) Infectious Disease Assmt/Plan - Problem List Patient Problems: All Active Problems Altered mental status (Acute) R41.82 Anemia (Acute) D64.9 Encephalopathy (Acute) G93.40 FALL WITH LEFT SHOULDER PAIN/CONFUSION (Acute) Facial injury (Acute) H/O fall (Acute) Z91.81 Renal insufficiency (Acute) rt parascapular bruising (Acute) - Assessment Assessment: 1. UTI. ESBL E coli treated. 2. History of fall. 3. Dementia. 4. coronary artery disease.CABG 5. Thyroid disorder. 6. pacemaker placement. 7. CABG 8. Leukocytosis. No fever. - Plan Plan: Check CBC in am DC plan. Off antibiotics. Nutritional Asmnt/Malnutr-PDOC - Dietary Evaluation Malnutrition Findings (Please click <Entered> for more info): Nutritional Asmnt/Malnutrition Start: 02/15/18 18: 13 Text: Status: Complete Freq: Protocol: Document 02/15/18 18:16 LCHENG (Rec: 02/15/18 18:28 LCHENG [email or web address]) Nutritional Asmnt/Malnutrition Patient General Information Nutritional Screening Moderate Risk Diagnosis CHF, UTI,sinus Fx Pertinent Medical Hx/Surgical Hx CAD, thyroid disorder, aortic valve replacement, pacemaker, CAD, CABG Subjective Information Pt seen resting in bed at time of visit. Per BUSINESS ATTORNEY, pt was not eating much, refusing to eat. Per nurse, pt is very confused, on restrains. Per EMR, PO intake 0-25%, refuse most of meals. MD ordered renal US per nurse note d/t blood in urine. Current Diet Order/ Nutrition Support [facility] soft chopped, cardiac Pertinent Medications lasix, culturelle, levothyroxine, megace, theragran, seroquel, vit D3 Pertinent Labs 02/15 K 3.4, BUN 47, Cr 1.3, glucose 124 Nutritional Hx/Data Height 1.6 m Height (Calculated Centimeters) 160.0 Current Weight (lbs) 66.224 kg Weight (Calculated Kilograms) 66.2 Weight (Calculated Grams) 47038.5 [place] Body Weight 115 Body Mass Index (BMI) 25.8 Weight Status Overweight GI Symptoms GI Symptoms None Last BM none Difficult in: None Skin Integrity/Comment: intact Current %PO Negligible < 25% Estimated Nutritional Goals BEE in Kcals: Using Current wt Calories/Kcals/Kg 23-27 Kcals Calculated 0488-9096 Protein: Using Current wt Protein g/k.8 Protein Calculated 52 Nutritional Problem 2. Problem Problem inadequate food intake Etiology confusion and poor cognition Signs/Symptoms: PO intake 0-25% 1. Problem Problem altered nutrition related labs Etiology electrolytes imbalance, possible renal function Signs/Symptoms: K 3.4, BUN 47, Cr 1.3 Malnutrition Alert Is there a minimum of two criteria No selected? Query Text:Check all the applicable criteria. A minimum of two criteria are recommended for diagnosis of either severe or non-severe malnutrition. Malnutrition Related to Morbid Obesity Malnutrition related to morbid obesity No Intervention/Recommendation Comments 1. Continue with current diet as ordered. Encourage oral intake and assist with meals as needed. 2. Monitor PO intake, wt, labs and skin integrity 3. F/U as moderate risk in 3-5 days, 02/18-02/20, PO check Expected Outcomes/Goals Expected Outcomes/Goals 1. PO intake to meet at least 75% of nutritional needs. 2. Wt stability, skin to remain intact, labs to approach WNL.
[2018-02-26 06:31] LABS: % BASOPHILS 0.8 % (0.0-2.0); % EOSINOPHILS 4.6 % (0.0-5.0); % LYMPHOCYTES 19.8 % (20.0-50.0); % MONOCYTES 8.2 % (2.0-10.0); % NEUTROPHILS 66.6 % (40.0-80.0); BASOPHILE ABSOLUTE 0.1 Th/cumm (0-0.2); EOSINOPHILE ABSOLUTE 0.5 Th/cmm (0.1-0.4); HEMATOCRIT 37.8 % (41.0-60); HEMOGLOBIN 12.5 gm/dL (12-16); LYMPHOCYTE ABSOLUTE 2.4 Th/cmm (1.5-3.0); MEAN PLATELET VOLUME 11.5 fl; NEUTROPHILE ABSOLUTE 7.9 Th/cmm (1.8-8.0); PLATELET COUNT 169 Th/cmm (150-400); RED BLOOD COUNT 4.44 Mil/cmm (3.80-5.20); RED CELL DISTRIBUTION WIDTH 17.7 % (11.5-20.0); WHITE BLOOD COUNT 11.9 Th/cmm (4.8-10.8)
[2018-02-26 06:56] LABS: ALBUMIN 3.1 gm/dL (3.7-5.3); ALKALINE PHOSPHATASE 84 U/L (34-104); ANION GAP 15.7 (7.0-16.0); BILIRUBIN,TOTAL 1.1 mg/dL (0.3-1.0); BUN - UREA NITROGEN 32 mg/dL (7-25); CALCIUM SERUM 9.4 mg/dL (8.6-10.3); CARBON DIOXIDE 20.1 mEq/L (21.0-31.0); CHLORIDE 105 mEq/L (98-107); CREATININE - SERUM 1.1 mg/dL (0.6-1.2); GLUCOSE 75 mg/dL (70-105); POTASSIUM SERUM 3.8 mEq/L (3.5-5.1); SGOT 38 U/L (13-39); SGPT/ALT 16 U/L (7-52); SODIUM SERUM 137 mEq/L (136-145); TOTAL PROTEIN,SERUM 6.1 gm/dL (6.0-8.3)
[2018-02-26] MEDS: Vitamin D3 2,000 IU SGL PO SCH (09:29)
[2018-02-26] MEDS: Multivitamin Tab PO SCH ×2 (09:29→09:40)
[2018-02-26] MEDS: Lactobacillus Rhamnosus GG 15 Billion CFU CAP.SPRINK PO SCH (09:30)
--- NOTE | 2018-02-26 22:59 | Progress Notes ---
DATE: 02/26/2018 Case was discussed with staff of the patient, reviewed records. The patient continues to have episodes where she is talking to herself, though she is better than before. I did increase her Seroquel dose. She is compliant with the medication with no side effects, no sedation, no nausea, no extrapyramidal symptoms. Continues to have poor insight. Continues to be unable to make safe plan for self-care or participate in meaningful conversation. Thank you very much for allowing me to participate in the care of this most interesting lady. JOB# [id number]
--- NOTE | 2018-03-05 23:42 | Discharge Summary ---
DATE OF DISCHARGE: 02/26/2018 The patient is an unfortunate female patient. The patient known to have history of Alzheimer disease, which was progressive and had altered level of consciousness, was brought in and had encephalopathy, urinary tract infection, and the patient also had renal insufficiency. The patient was treated for all of that in the medical floor later on went to [facility], patient improved. The patient was in stable condition on 02/26/2018, patient was discharged to [facility] where I will be following the patient with a final diagnosis of dehydration, UTI resolved, increasing dementia, increasing history of cardiomyopathy, history of CA in the past and history of anemia. CONDITION AT TIME OF DISCHARGE: Stable. PSYCHIATRIC# [id number]
== END 2018-02-26 16:25 | DRG 871 ==
LOC: ER 13:44 → TELE 20:07 → UNDODISIN 02-15 18:45 → MSI 02-18 16:36
PROVIDERS: ADMIT Internal Medicine; ATTEND Internal Medicine
DX: A41.9 Sepsis, unspecified organism (principal); I50.23 Acute on chronic systolic (congestive) heart failure; G93.41 Metabolic encephalopathy; S02.19XA Other fracture of base of skull, initial encounter for closed fracture; N39.0 Urinary tract infection, site not specified; N17.9 Acute kidney failure, unspecified; N18.2 Chronic kidney disease, stage 2 (mild); Z95.1 Presence of aortocoronary bypass graft; D50.9 Iron deficiency anemia, unspecified; Z95.0 Presence of cardiac pacemaker; F03.90 Unspecified dementia, unspecified severity, without behavioral disturbance, psychotic disturbance, mood disturbance, and anxiety; I25.119 Atherosclerotic heart disease of native coronary artery with unspecified angina pectoris; S40.011A Contusion of right shoulder, initial encounter; W18.30XA Fall on same level, unspecified, initial encounter; E03.9 Hypothyroidism, unspecified; F39 Unspecified mood [affective] disorder; B96.20 Unspecified Escherichia coli [E. coli] as the cause of diseases classified elsewhere; E86.0 Dehydration; Y93.89 Activity, other specified; Y92.89 Other specified places as the place of occurrence of the external cause; Y99.8 Other external cause status; Z95.2 Presence of prosthetic heart valve; Z16.12 Extended spectrum beta lactamase (ESBL) resistance; Z79.899 Other long term (current) drug therapy; Z91.81 History of falling
CPT/HCPCS: 36415-UA; 70450-TC; 71045-TC; 73010-TC-RT; 73030-TC-LT; 73030-TC-RT; 73200-TC-RT; 80048-TC; 80053-TC; 80307; 81001-TC; 82550-TC; 82948-90; 83605; 83735-TC; 83880-TC; 84100-TC; 84443-TC; 84484-TC; 85007-TC; 85025-TC; 85379-TC; 85610-TC; 85730-TC; 87086-90; 93005; 94760; 96375; J0696; J1644; J1940; J1956; J2060; J2185; Z7610